=== PATIENT | male | born 1965 | race Caucasian/White ===

== ENCOUNTER 2022-10-01 09:15 | Outpatient (OUT) | payer BC, SELFPAY ==
--- NOTE | 2022-10-01 09:17 | XR_ITS ---
The [place] [id number] Patient Name: RITU BAKER MRN: [id number] date: 1965 Sex: M Assigned Patient Location: [facility] Current Patient Location: [facility] Accession/Order Number: [id number] Exam Date: 10/01/2022 09:20 Report Date: 10/01/2022 10:02 At the request of: JOSE LUIS HUYNH Procedure: XR ankle RT min 3V PROCEDURE: XR ankle RT min 3V HISTORY: RIGHT ANKLE PAIN COMPARISON: XR ankle right 09/05/2022 FINDINGS: BONES:Mechanical fusion of the ankle joint, posterior talocalcaneal joint, and dorsal midfoot. No appreciable hardware fracture or loosening. No bone fracture or dislocation. Prior resection of distal fibula. SOFT TISSUES:Moderate soft tissue swelling surrounding the ankle. EFFUSION:None visible. OTHER: Negative. IMPRESSION: 1. Stable surgical changes without evidence of hardware failure or change in alignment. Electronically authenticated by: LORETO MARTINS Date: 10/01/2022 10:02
== END 2022-10-01 09:16 ==
LOC: RAD 09:15
PROVIDERS: PCP Student in an Organized Health Care Education/Training Program; Visit Provider Student in an Organized Health Care Education/Training Program
DX: M25.571 Pain in right ankle and joints of right foot (principal)
CPT/HCPCS: 73610

== ENCOUNTER 2022-10-30 10:16 | Outpatient (OUT) | payer BC, SELFPAY ==
--- NOTE | 2022-10-30 10:17 | XR_ITS ---
[address] [address] Patient Name: RITU BAKER MRN: [id number] date: 1965 Sex: M Assigned Patient Location: [facility] Current Patient Location: [facility] Accession/Order Number: [id number] Exam Date: 10/30/2022 10:20 Report Date: 10/30/2022 11:57 At the request of: ANDI BELLE Procedure: XR ankle RT min 3V PROCEDURE: XR ankle RT min 3V COMPARISON: 10/01/2022 HISTORY: RIGHT ANKLE PAIN FINDINGS: BONES:Stable ankle fusion. Screw through the posterior talocalcaneal joint. Plate and screws through the dorsal midfoot hindfoot. Multiple screws through the tibiotalar joint. Lateral plate across the tibia and hindfoot. Remote resection of the fibula SOFT TISSUES:Moderate diffuse soft tissue swelling EFFUSION:Joint effusion OTHER: Negative. XR/XR ankle RT min 3V IMPRESSION: Stable postsurgical changes with no acute fracture or mechanical failure Electronically authenticated by: ADARSH MCGEE Date: 10/30/2022 11:57
== END 2022-10-30 10:17 | disposition home or self-care (01) ==
LOC: RAD 10:16
PROVIDERS: PCP Internal Medicine; Visit Provider Podiatrist Foot & Ankle Surgery
DX: M19.071 Primary osteoarthritis, right ankle and foot (principal)
CPT/HCPCS: 73610

== ENCOUNTER 2022-11-04 10:43 | Outpatient (RCR) | payer BC, SELFPAY | END 2022-11-15 11:39 | disposition home or self-care (01) | LOC: PT 10:43 | PROVIDERS: PCP Internal Medicine; Visit Provider Podiatrist Foot & Ankle Surgery | DX: M25.571 Pain in right ankle and joints of right foot (principal); M79.671 Pain in right foot | CPT/HCPCS: 97113; 97161 ==

== ENCOUNTER 2022-11-06 07:52 | Outpatient (OUT) | payer BC, SELFPAY ==
--- NOTE | 2022-11-06 07:56 | CT_ITS ---
[address] [address] Patient Name: RITU BAKER MRN: [id number] date: 1965 Sex: M Assigned Patient Location: CT Current Patient Location: CT Accession/Order Number: [id number] Exam Date: 11/06/2022 08:03 Report Date: 11/06/2022 08:36 At the request of: ANDI BELLE Procedure: CT ankle RT wo con EXAMINATION: CT ankle RT wo con HISTORY: Primary Osteoarthritis COMPARISON: 10/30/2022 TECHNIQUE: Multi-planar CT images were created without IV contrast. Dose reduction techniques were achieved by using automated exposure control and/or adjustment of mA and/or kV according to patient size and/or use of iterative reconstruction technique. FINDINGS: BONES: No acute fracture or dislocation. Marked degenerative change with fusion and bony remodeling. Remote distal fibular resection Midfoot hindfoot fusion utilizing a lateral plate and screws extending from the tibia to the talus. Tibiotalar and subtalar fusion with multiple screws. Midfoot hindfoot fusion with a dorsal plate and screws. No definite mechanical failure is observed. Metallic wire extends from the anterior tibiotalar joint SOFT TISSUES: Diffuse subcutaneous edema and skin thickening EFFUSION: Ankle joint effusion OTHER: Negative. CT/CT ankle RT wo con IMPRESSION: Ankle fusion with extensive soft tissue swelling and joint effusion Electronically authenticated by: ADARSH MCGEE Date: 11/06/2022 08:36
== END 2022-11-06 07:53 | disposition home or self-care (01) ==
LOC: CT 07:52
PROVIDERS: PCP Internal Medicine; Visit Provider Podiatrist Foot & Ankle Surgery
DX: M19.071 Primary osteoarthritis, right ankle and foot (principal); Z98.1 Arthrodesis status; M79.89 Other specified soft tissue disorders; M25.471 Effusion, right ankle
CPT/HCPCS: 73700

== ENCOUNTER 2022-12-13 06:37 | Outpatient (OUT) | payer BC, SELFPAY ==
[2022-12-13 08:16] LABS: Thyroid Stimulating Hormone 6.961 uIU/mL (0.358-3.740)
== END 2022-12-13 06:38 | disposition home or self-care (01) ==
LOC: LAB 06:39
PROVIDERS: PCP Internal Medicine; Visit Provider Internal Medicine
DX: E04.1 Nontoxic single thyroid nodule (principal)
CPT/HCPCS: 36415; 84443

== ENCOUNTER 2022-12-18 09:21 | Outpatient (OUT) | payer BC, SELFPAY ==
--- NOTE | 2022-12-18 | XR_ITS ---
The [address] [address] Patient Name: RITU BAKER MRN: [id number] date: 1965 Sex: M Assigned Patient Location: [facility] Current Patient Location: [facility] Accession/Order Number: [id number] Exam Date: 12/18/2022 09:30 Report Date: 12/18/2022 10:06 At the request of: ANDI BELLE Procedure: XR ankle RT min 3V PROCEDURE: XR ankle RT min 3V DATE: 12/18/2022 8:30 AM CDT COMPARISONS: None CLINICAL INDICATION: IMAGING IN PODIATRY FINDINGS: There is again evidence of resection of the distal fibula. There is again multiple screws and fixation plates across the tibiotalar joint space, across the subtalar joint space and of the dorsal midfoot. All hardware appears to be intact and stable in position when compared to previous exam.. There is again diffuse bone demineralization. Soft tissue swelling is noted about the ankle. XR/XR ankle RT min 3V IMPRESSION: Extensive postop changes of the ankle, the midfoot and the hindfoot, stable in appearance from previous exam. Electronically authenticated by: CANELO FRANCO Date: 12/18/2022 10:06
== END 2022-12-18 09:22 | disposition home or self-care (01) ==
LOC: RAD 09:21
PROVIDERS: PCP Internal Medicine; Visit Provider Podiatrist Foot & Ankle Surgery
DX: M25.571 Pain in right ankle and joints of right foot (principal)
CPT/HCPCS: 73610

== ENCOUNTER 2023-01-17 13:43 | Outpatient (OUT) | payer BC, SELFPAY ==
[2023-01-17 14:23] LABS: Basophils Absolute Auto 0.1 10^3/uL (0.0-0.1); Eosinophils Absolute Auto 0.2 10^3/uL (0.0-0.7); Eosinophils Percent Auto 2.8 % (0.9-7.0); Hematocrit 41.2 % (42.0-54.0); Immature Granulocytes Abs Auto 0.01 10^3/uL (0.00-0.03); Immature Granulocytes Pct Auto 0.2 % (0.0-0.5); Lymphocytes Absolute Auto 1.8 10^3/uL (1.2-3.8); Lymphocytes Percent Auto 29.4 % (20.5-60.0); Mean Corpuscular Hemoglobin 31.1 pg (25.9-34.0); Mean Corpuscular Volume 91.6 fL (80.0-94.0); Mean Platelet Volume 9.6 fL (9.5-13.5); Monocytes Absolute Auto 0.5 10^3/uL (0.3-0.8); Monocytes Percent Auto 8.5 % (1.7-12.0); Neutrophils Absolute Auto 3.5 10^3/uL (1.4-6.5); Neutrophils Percent Auto 58.1 % (43.0-75.0); Platelet Count 226 10^3/uL (150-450); Red Cell Distribution Width 12.7 % (11.0-15.0); White Blood Count 6.1 10^3/uL (4.0-11.0)
[2023-01-17 14:36] LABS: Alanine Aminotransferase 67 U/L (16-63); Albumin Globulin Ratio 0.9; Albumin Level 3.9 g/dL (3.4-5.0); Alkaline Phosphatase 108 U/L (46-116); Anion Gap 12.4; Aspartate Amino Transferase 33 U/L (15-37); BUN Creatinine Ratio 14.1; Bilirubin Total 0.5 mg/dL (0.2-1.0); Calcium 9.4 mg/dL (8.5-10.1); Carbon Dioxide 30.5 mmol/L (21.0-32.0); Chloride 100 mmol/L (98-107); Estimated GFR (African America >60 (>=60); Estimated GFR (Non-African Ame >60 (>=60); Globulin 4.4 g/dL; Glucose 80 mg/dL (74-106); Potassium 3.9 mmol/L (3.5-5.1); Sodium 139 mmol/L (136-145); Total Protein 8.3 g/dL (6.4-8.2)
[2023-01-17 14:38] LABS: C Reactive Protein <0.2 mg/dL (<=1.0)
[2023-01-18 11:53] LABS: C. Difficile PCR NEGATIVE (NEGATIVE)
[2023-01-20 16:09] LABS: Deamidated Gliadin Abs, IgA 6 units (0-19); Deamidated Gliadin Abs, IgG 2 units (0-19); Endomysial Antibody IgA Negative (Negative); Immunoglobulin A, Qn, Serum 420 mg/dL (90-386); t-Transglutaminase (tTG) IgA <2 U/mL (0-3); t-Transglutaminase (tTG) IgG 4 U/mL (0-5)
[2023-01-20 21:07] LABS: Calprotectin, Fecal 75 ug/g (0-120)
[2023-01-30 14:08] LABS: Ova + Parasite Exam Final report (.)
== END 2023-01-17 13:44 | disposition home or self-care (01) ==
LOC: LAB 13:44
DX: K62.5 Hemorrhage of anus and rectum (principal)
CPT/HCPCS: 36415; 80053; 82784; 83993; 85025; 86140; 86231; 86258; 86364; 87177; 87209; 87493; 87507

== ENCOUNTER 2023-01-28 07:58 | Outpatient (OUT) | payer BC, SELFPAY ==
--- NOTE | 2023-01-28 08:02 | CT_ITS ---
The [place] [id number] Patient Name: RITU BAKER MRN: [id number] date: 1965 Sex: M Assigned Patient Location: CT Current Patient Location: CT Accession/Order Number: [id number] Exam Date: 01/28/2023 08:04 Report Date: 01/28/2023 09:03 At the request of: ANDI BELLE Procedure: CT ankle RT wo con CT ankle RT wo con, 01/28/2023 8:04 AM EDT INDICATION: Ankle Degenerative Disease COMPARISON: Prior CT dated 11/06/2022 and x-ray of the right ankle dated 12/18/2022 TECHNIQUE: axial images of 1 mm are obtained from with coronal and sagittal reconstructions without contrast. 3-D MIP reconstructions are also provided. Dose reduction techniques were achieved by using automated exposure control and/or adjustment of mA and/or kV according to patient size and/or use of iterative reconstruction technique. FINDINGS: There is status post right distal fibular resection and fusion of tibiotalar and subtalar and midtarsal fusion with multiple screws and plate. No hardware fracture or loosening is noted. No acute fracture or dislocation is noted. There is diffuse demineralization of bone. Possible old fracture deformity of the distal fifth metatarsal bone. Diffuse soft tissue swelling is noted. No suspicious osteolytic or osteoblastic lesion is noted. CT/CT ankle RT wo con IMPRESSION: Diffuse demineralization of bone with severe postoperative/degenerative changes of tibiotalar and subtalar and midtarsal bones. Electronically authenticated by: FANNIE LEACH Date: 01/28/2023 09:03
== END 2023-01-28 07:59 | disposition home or self-care (01) ==
LOC: CT 07:58
PROVIDERS: Visit Provider Podiatrist Foot & Ankle Surgery
DX: M19.071 Primary osteoarthritis, right ankle and foot (principal)
CPT/HCPCS: 73700

== ENCOUNTER 2023-02-10 11:16 | Outpatient (OUT) | payer BC, SELFPAY ==
--- NOTE | 2023-02-10 12:59 | P.CN_ITS ---
Consult Note: HPI Data of Consult Patient: new to practice Consult date: 02/10/23 Requesting Physician: Stephanie Olmos MD Primary Care Provider: Non-Staff Physician, Consult Narrative Reason for consult: right foot and ankle pain Narrative: 57yom who presents for evaluation. has had multiple right foot and ankle surgeries in the past. now has persistent pain, swelling, color change, temperature change. engaged in >6 weeks of provider directed home exercises, with minimal relief. tried gabapentin, with limited benefit. cc:: CC: Stephanie Olmos MD Review of Systems ROS0 Status of ROS 10 or more systems reviewed and unremarkable except as noted in history and below Exam Narrative Exam Narrative: Psych-alert and oriented x 3.? Attentive and appropriate, constitutionally normal, displays normal mood and affect per situation.? There are no obvious deficits in memory, reasoning, or intellect. Examination of the right lower extremity reveals notable hyperpathia and allodynia.? Notable atrophy and diffuse weakness present in the extremity.? There is notable shiny skin with hair loss and abnormal hair growth denoting trophic changes presently.? Asymmetric color and temperature changes are present which denotes sudomotor changes.? Decreased range of motion and strength is noted in the extremity.? Coordination remains intact.? Gait remains non-antalgic. Assessment and Plan Assessment and Plan (1) CRPS (complex regional pain syndrome type I): Plan 57yom who presents for evaluation. failed physical and medical modalities, as noted. given surgical history and symptoms, prudent to attempt right lumbar sympathetic nerve block x2 to provide analgesia. he is in agreement. medications reviewed. will trial lyrica 50mg tid, given gabapentin failure. follow up after procedure.
== END 2023-02-10 11:17 | disposition home or self-care (01) ==
PROVIDERS: Visit Provider Anesthesiology
DX: G90.50 Complex regional pain syndrome I, unspecified (principal)
CPT/HCPCS: G0463

== ENCOUNTER 2023-02-17 07:21 | Day surgery (SDC) | payer BC, SELFPAY ==
[2023-02-17 07:40] VITALS: BP 146/84; PULSE 71; RESP 16; TEMP 36.6; O2SAT 95
[2023-02-17] MEDS: 0.9 % SODIUM CHLORIDE 500 ML IV (07:52)
--- NOTE | 2023-02-17 08:45 | W.PM.PROCNOT ---
Date of procedure: 02/17/23 Pre-op diagnosis: CRPS type I, right lower extremity Post-op diagnosis: same as pre-op Procedure: Procedure: Right lumbar sympathetic nerve block Medications: Bupivacaine 0.25% 4cc, normal saline 0.9% 4cc, kenalog 80mg The patient was seen and examined in the preoperative holding area.? Informed consent was obtained and placed on the chart.? Patient was brought to the medical procedure unit and placed in the prone position where a timeout was completed verifying the correct patient, procedure site, position, and planned special equipment using sterile aseptic technique.? Under direct fluoroscopic visualization a 25-gauge Quincke tipped spinal needle was advanced to the right anterolateral aspect of the L3 vertebral body where Omnipaque dye was injected to show adequate spread.? There was no evidence of vascular or neurologic uptake.? The above-mentioned injectate was then placed in five 2 mL aliquots preceded by negative aspiration. The needle was removed and the surgery site was covered. The same procedure, with the same steps, was then completed on the opposite side. Patient was taken to the postprocedural recovery area and monitored for an appropriate length of time before found suitable for discharge in the accompaniment of a responsible adult. Anesthesia: Moderate Sedation Surgeon: Stephanie Olmos Pathology: none sent Condition: stable Disposition: no change
[2023-02-17] MEDS: IOHEXOL 240 MG/ML - 10 ML VIAL 100 MG INJ (08:46)
[2023-02-17] MEDS: LIDOCAINE HCL 2% PF 100 MG/5 ML VIAL INJ (08:47)
[2023-02-17] MEDS: TRIAMCINOLONE ACETONIDE 40 MG/ML VIAL 10 MG INJ (08:47)
[2023-02-17] MEDS: BUPIVACAINE HCL 0.25% PF 25 MG/10 ML VIAL 4 ML INJ (08:47)
[2023-02-17] MEDS: 0.9 % SODIUM CHLORIDE 10 ML SYRINGE - SALINE FLUSH 5 ML INJ (08:47)
[2023-02-17 08:48] VITALS: BP 102/73; PULSE 86; RESP 15; TEMP 36.6; O2SAT 93
[2023-02-17 08:53] VITALS: BP 109/72; PULSE 86; RESP 16; TEMP 36.6; O2SAT 92
== END 2023-02-17 09:13 | disposition home or self-care (01) ==
PROVIDERS: Visit Provider Anesthesiology
DX: G90.521 Complex regional pain syndrome I of right lower limb (principal)
CPT/HCPCS: 64520; 77002; J2704; Q9966

== ENCOUNTER 2023-03-10 06:53 | Day surgery (SDC) | payer OTHER, SELFPAY ==
[2023-03-10 07:11] VITALS: BP 134/83; PULSE 73; RESP 16; TEMP 36.8; O2SAT 97
[2023-03-10] MEDS: 0.9 % SODIUM CHLORIDE 500 ML 50 ML IV (07:26)
--- NOTE | 2023-03-10 08:21 | W.PM.PROCNOT ---
Date of procedure: 03/10/23 Pre-op diagnosis: Complex regional pain syndrome type 1, right lower extremity Procedure: Procedure: Right lumbar sympathetic plexus block Medications: Bupivacaine 0.5% 4cc, normal saline 0.9% 4cc, kenalog 40mg The patient was seen and examined in the preoperative holding area.? Informed consent was obtained and placed on the chart.? Patient was brought to the medical procedure unit and placed in the prone position where a timeout was completed verifying the correct patient, procedure site, position, and planned special equipment using sterile aseptic technique.? Under direct fluoroscopic visualization a 25-gauge Quincke tipped spinal needle was advanced to the right anterolateral aspect of the L3 vertebral body where Omnipaque dye was injected to show adequate spread.? There was no evidence of vascular or neurologic uptake.? The above-mentioned injectate was then placed in five 2 mL aliquots preceded by negative aspiration. The needle was removed and the surgery site was covered. The same procedure, with the same steps, was then completed on the opposite side. Patient was taken to the postprocedural recovery area and monitored for an appropriate length of time before found suitable for discharge in the accompaniment of a responsible adult. Anesthesia: Moderate Sedation Surgeon: Stephanie Olmos Pathology: none sent Condition: stable Disposition: no change
[2023-03-10] MEDS: IOHEXOL 240 MG/ML - 10 ML VIAL 24 MG INJ (08:22)
[2023-03-10] MEDS: BUPIVACAINE HCL 0.25% PF 25 MG/10 ML VIAL 4 ML INJ (08:23)
[2023-03-10] MEDS: LIDOCAINE HCL 2% PF 100 MG/5 ML VIAL 1 ML INJ (08:23)
[2023-03-10 08:24] VITALS: BP 120/78; PULSE 83; RESP 16; TEMP 36.9; O2SAT 96
[2023-03-10] MEDS: TRIAMCINOLONE ACETONIDE 40 MG/ML VIAL INJ (08:24)
[2023-03-10 08:26] VITALS: BP 117/77; PULSE 81; RESP 16; TEMP 36.9; O2SAT 95
[2023-03-10] MEDS: 0.9 % SODIUM CHLORIDE 10 ML SYRINGE - SALINE FLUSH 2.5 ML IV (09:50)
== END 2023-03-10 08:45 | disposition home or self-care (01) ==
PROVIDERS: Visit Provider Anesthesiology
PROC: (CPT 1992; principal; 2023-03-10 07:40)
DX: G90.521 Complex regional pain syndrome I of right lower limb (principal)
CPT/HCPCS: 64520; 77002; J2704; Q9966

== ENCOUNTER 2023-03-26 09:49 | Outpatient (OUT) | payer OTHER, SELFPAY ==
--- NOTE | 2023-03-26 10:35 | P.CN_ITS ---
Consult Note: HPI Data of Consult Patient: new to practice Consult date: 02/10/23 Requesting Physician: Niecy Coe NP Primary Care Provider: Non-Staff Physician, MD Consult Narrative Reason for consult: right foot and ankle pain Narrative: 57yom who presents for evaluation. has had multiple right foot and ankle howard rgeries in the past. now has persistent pain, swelling, color change, temperature change. engaged in >6 weeks of provider directed home exercises, with minimal relief. tried gabapentin, with limited benefit. Pain today 5-6/10 in low back and right ankle. pt has a reported hx of arthritis and degenerative changes in lumbar spine but says his back was not bothering him until the injections. cc:: CC: Niecy Coe NP Review of Systems ROS Status of ROS 10 or more systems reviewed and unremark able except as noted in history and below Musculoskeletal Reports: back pain, extremity pain and joint pain PFSH PFSH Medical History History of acoustic neuroma ?Z86.018 - Personal history of other benign neoplasm (ICD-10) Low back pain ?M54.50 - Low back pain, unspecified (ICD-10) Osteoarthritis ?M19.90 - Unspecified osteoarthritis, unspecified site (ICD-10) Hypertension ?I10 - Essential (primary) hypertension (ICD-10) Surgical History H/O neck surgery ?Z98.890 - Other specified postprocedural states (ICD-10) History of ankle surgery ?Z98.890 - Other specified postprocedural states (ICD-10) Meds Home Medications and Allergies Home Medications Medication Instructions Recorded Confirmed Type amlodipine 10 mg tablet 10 mg PO DAILY 02/10/23 03/10/23 History levothyroxine 112 mcg capsule 112 mcg PO DAILY 02/10/23 03/10/23 History lisinopril 20 mg tablet 20 mg PO DAILY 02/10/23 03/10/23 History omeprazole 40 mg capsule,delayed 40 mg PO DAILY 02/10/23 03/10/23 History release pregabalin 50 mg capsule (Lyrica) 50 mg PO TID 02/10/23 03/10/23 History Allergies Allergy/AdvReac Type Severity Reaction Status Date / Time No Known Drug Allergies Allergy Verified 03/10/23 07:09 Exam Narrative Exam Narrative: Psych-alert and oriented x 3.? Attentive and appropriate, constitutionally normal, displays normal mood and affect per situation.? There are no obvious deficits in memory, reasoning, or intellect. lumbar spine positive facet loading, no redness edema or tenderness to touch, no radiculopathy. BUE/BLE strength 5/5 Examination of the right lower extremity reveals notable hyperpathia and allodynia.? Notable atrophy and diffuse weakness present in the extremity.? There is notable shiny skin with hair loss and abnormal hair growth denoting trophic changes presently.? Asymmetric color and temperature changes are present which denotes sudomotor changes.? Decreased range of motion and strength is noted in the extremity.? Coordination remains intact.? Gait remains non-antalgic. Assessment and Plan Assessment and Plan (1) CRPS (complex regional pain syndrome type I): Qualifiers: Complex regional pain syndrome affected site: lower extremity Laterality: right Qualified Code(s): G90.521 - Complex regional pain syndrome I of right lower limb (2) Low back pain: Qualifiers: Chronicity: chronic Back pain laterality: bilateral Sciatica presence: without sciatica Qualified Code(s): M54.50 - Low back pain, unspecified; G89.29 - Other chronic pain (3) Osteoarthritis: Qualifiers: Osteoarthritis location: unspecified site Osteoarthritis type: unspecified Qualified Code(s): M19.90 - Unspecified osteoarthritis, unspecified site Plan encouraged tylenol and NSAIDS PRN for low back pain continue f/u with podiatry patient reports he is still taking lyrica 50mg TID however last fill was 02/11/23, reports no side effects but no benefit increase lyrica to 100mg TID f/u 6 weeks
== END 2023-03-26 09:50 | disposition home or self-care (01) ==
LOC: PM 09:50
PROVIDERS: Visit Provider Nurse Practitioner
DX: G90.521 Complex regional pain syndrome I of right lower limb (principal); M54.50 Low back pain, unspecified; M19.90 Unspecified osteoarthritis, unspecified site
CPT/HCPCS: G0463

== ENCOUNTER 2023-04-02 14:05 | Outpatient (OUT) | payer OTHER, SELFPAY ==
--- NOTE | 2023-04-02 | XR_ITS ---
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 Right foot radiographs 07/29/2022 CLINICAL INDICATION: RIGHT ANKLE PAIN FINDINGS: There is again evidence of resection of the distal fibula. There are again multiple screws and fixation plates across the tibiotalar joint space, across the subtalar joint space and of the dorsal midfoot. All hardware appears to be intact and stable in position from previous exam. There is again diffuse bone demineralization. There is again moderate first metacarpal phalangeal and first interphalangeal degenerative changes. There is again midfoot degenerative changes. There is again a small spur off the posterior inferior os calcis.. XR/XR foot RT min 3V IMPRESSION: Extensive postop changes are identified of the ankle, the hindfoot and the mid foot. These findings are stable in appearance from previous exam from 12/18/2022. Electronically authenticated by: CANELO FRANCO Date: 04/03/2023 07:17
--- NOTE | 2023-04-02 | XR_ITS ---
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 Right foot radiographs 07/29/2022 CLINICAL INDICATION: RIGHT ANKLE PAIN FINDINGS: There is again evidence of resection of the distal fibula. There are again multiple screws and fixation plates across the tibiotalar joint space, across the subtalar joint space and of the dorsal midfoot. All hardware appears to be intact and stable in position from previous exam. There is again diffuse bone demineralization. There is again moderate first metacarpal phalangeal and first interphalangeal degenerative changes. There is again midfoot degenerative changes. There is again a small spur off the posterior inferior os calcis.. XR/XR ankle RT min 3V IMPRESSION: Extensive postop changes are identified of the ankle, the hindfoot and the mid foot. These findings are stable in appearance from previous exam from 12/18/2022. Electronically authenticated by: CANELO FRANCO Date: 04/03/2023 07:16
== END 2023-04-02 14:06 | disposition home or self-care (01) ==
LOC: RAD 14:05
PROVIDERS: Visit Provider Podiatrist Foot & Ankle Surgery
DX: M25.571 Pain in right ankle and joints of right foot (principal)
CPT/HCPCS: 73610; 73630

== ENCOUNTER 2023-04-03 16:01 | Emergency (ER) | payer OTHER, SELFPAY ==
[2023-04-03 16:07] VITALS: BP 119/80; PULSE 96; RESP 18; TEMP 36.6; O2SAT 100; BMI 30.4
--- NOTE | 2023-04-03 16:11 | PC.NURSE ---
Pain to right foot, area of redness to top of foot, skin pink and warm and pulses present.
--- OUTSIDE RECORDS SUMMARY | 2023-04-03 16:33 | XMS_ITS | CCD ---
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 Unavailable Unavailable TESMOND RICO G Unavailable Unavailable TESMOND, RICO G Unavailable Unavailable TESSHAYLEE RICO G Unavailable Unavailable BEJNANDINI Unavailable Unavailable BEJNANDINI Unavailable Unavailable TESRICO JUNE Unavailable Unavailable TRABOULSSI, MOURHAF Unavailable Unavailable TESSHAYLEE RICO G Unavailable Unavailable Traboulssi, Mourhaf Attending Unavailable Rico Santamaria Primary Care Unavaila ble Seth Turcios Primary Care Provider Seth Turcios Attending Provider [phone] Andi Belle Attending Provider [phone] Moraima Toussaint Attending Provider [phone] NANDINI BILLINGSLEY Admitting Unavailabl e NANDINI BILLINGSLEY Attending Unavailabl e PROVIDER, UNKNOWN Attending Unavailable NANDINI BILLINGSLEY Referring Unavailabl e PROVIDER, UNKNOWN Admitting Unavailable NANDINI BILLINGSLEY Referring Unavailabl e PROVIDER, UNKNOWN Attending Unavailable PROVIDER, UNKNOWN Admitting Unavailable NANDINI BILLINGSLEY Admitting Unavailabl e NANDINI BILLINGSLEY Attending Unavailabl e PROVIDER, UNKNOWN Attending Unavailable PROVIDER, UNKNOWN Admitting Unavailable NANDINI BILLINGSLEY Referring Unavailabl e PROVIDER, UNKNOWN Attending Unavailable PROVIDER, UNKNOWN Admitting Unavailable MORAIMA TOUSSAINT Referring Unavailable PROVIDER, UNKNOWN Attending Unavailable NANDINI BILLINGSLEY Admitting Unavailabl e KARLI JUAREZ Referring Unavailable PROVIDER, UNKNOWN Attending Unavailable PROVIDER, UNKNOWN Admitting Unavailable NANDINI BILLINGSLEY Referring Unavailabl e PROVIDER, UNKNOWN Attending Unavailable PROVIDER, UNKNOWN Admitting Unavailable Adarsh Love Unavailable Mindi TIMBER MANAGEMENT PROFESSOR-SAP DATA ARCHITECT, Brigida Unavailable [phone] Karrie ROBLES, Nandini Rose Unavailable [facility] DATA ARCHITECT, Crystal Unavailable Seth Turcios MD Unavailable Mindi ATWOODN-SAP DATA ARCHITECT, Brigida Unavailable [phone] Karrie ROBLES, Nandini Rose Unavailable Moga TIMBER MANAGEMENT PROFESSOR-SAP DATA ARCHITECT, Crystal Unavailable YOSHI, ANDI Ridley Admitting Unavailable HIGHLANDER, ANDI Ridley Attending Unavailable HILL, DR ANN Primary Care Unavailable WEST, DR ADARSH Wilson Consulting Unavailable HIGHLANDER, ANDI Ridley Consulting Unavailable WEST, DR ADARSH Wilson Consulting Unavailable VERONIKA, EBONI Attending Unavailable VERONIKA, EBONI Admitting Unavailable HILL, DR ANN Primary Care Unavailable VERONIKA, EBONI Consulting Unavailable HIGHLANDER, ANDI Ridley Admitting Unavailable HIGHLANDER, ANDI Ridley Attending Unavailable HILL, DR ANN Primary Care Unavailable HIGHLANDER, ANDI Ridley Consulting Unavailable Adarsh Beverly Consulting Unavailable LAKSHMI, DR LORETO Zheng Consulting Unavailable HILL, DR ANN Primary Care Unavailable VERONIKA, EBONI Attending Unavailable VERONIKA, EBONI Admitting Unavailable VERONIKA, EBONI Consulting Unavailable HIGHLANDER, ANDI Ridley Admitting Unavailable HIGHLANDER, ANDI Ridley Attending Unavailable HILL, DR ANN Primary Care Unavailable LAKSHMI, DR LORETO Zheng Consulting Unavailable HIGHLSTEVE, ANDI Ridley Consulting Unavailable KAMILA ., DR ERIK Sanchez Consulting Unavailable TREVIÑO ., DR ERIK Sanchez Attending Unavailable TREVIÑO ., DR ERIK Sanchez Admitting Unavailable HILL, DR ANN Primary Care Unavailable HIGHLANDER, ANDI Ridley Consulting Unavailable LINO ., JOSE LUIS LYNN Consulting Unavailable SHARP, YANN Consulting Unavailable CARLOS MANUEL II, FERDINAND Consulting Unavailable FEIDER, CANELO Consulting Unavailable HIGHLANDER, ANDI Ridley Consulting Unavailable HILL, DR ANN Primary Care Unavailable HIGHLANDER, ANDI Ridley Attending Unavailable HIGHLANDER, ANDI Ridley Admitting Unavailable HIGHLANDER, ANDI Ridley Admitting Unavailable HIGHLANDER, ANDI Ridley Attending Unavailable HILL, DR ANN Primary Care Unavailable WEST, DR ADARSH Wilson Consulting Unavailable HIGHLANDER, ANDI Ridley Consulting Unavailable LAKSHMI, DR LORETO Zheng Consulting Unavailable HILL, DR ANN Primary Care Unavailable HIGHLANDER, ANDI Ridley Attending Unavailable HIGHLANDER, ANDI Ridley Admitting Unavailable HIGHLANDER, ANDI Ridley Consulting Unavailable HILL, DR ANN Primary Care Unavailable VERONIKA, EBONI Attending Unavailable VERONIKA, EBONI Admitting Unavailable WEST, DR ADARSH Wilson Consulting Unavailable HILL, DR ANN Primary Care Unavailable VERONIKA, EBONI Attending Unavailable VERONIKA, EBONI Admitting Unavailable VERONIKA, EBONI Consulting Unavailable WEST, DR ADARSH Wilson Consulting Unavailable HILL, DR ANN Primary Care Unavailable VERONIKA, EBONI Attending Unavailable VERONIKA, EBONI Admitting Unavailable VERONIKA, EBONI Consulting Unavailable WEST, DR ADARSH Wilson Consulting Unavailable HILL, DR ANN Primary Care Unavailable HILL, DR ANN Attending Unavailable HILL, DR ANN Admitting Unavailable HILL, DR ANN Consulting Unavailable HIGHLANDER, ANDI Ridley Admitting Unavailable HIGHLANDER, ANDI Ridley Attending Unavailable HILL, DR ANN Primary Care Unavailable LAKSHMI, DR LORETO Zheng Consulting Unavailable HIGHLANDER, ANDI Ridley Consulting Unavailable LINO ., JOSE LUIS LYNN Consulting Unavailable RAMBO, JOSE LUIS Consulting Unavailable AILIN, ARCHIE Consulting Unavailable AYYAGARI ., MARBELLA Admitting Unavailable AYYAGARI ., MARBELLA Attending Unavailable HILL, DR ANN Primary Care Unavailable HIGHLANDER, ANDI Ridley Consulting Unavailable HILL, DR ANN Primary Care Unavailable HIGHLANDER, ANDI Ridley Attending Unavailable HIGHLANDER, PETER Khai Admitting Unavailable HIGHLANDER, ANDI Ridley Admitting Unavailable HIGHLANDER, ANDI iRdley Attending Unavailable HILL, DR ANN Primary Care Unavailable HIGHLANDER, ANDI Ridley Consulting Unavailable HIGHLANDER, ANDI Ridley Admitting Unavailable HIGHLANDER, ANDI Ridley Attending Unavailable HILL, DR ANN Primary Care Unavailable HIGHLANDER, ANDI Ridley Consulting Unavailable APARNA HANSEN Unavailable SETH TURCIOS Primary Care Physician [phone] Mary Elizalde Admitting Unavailable Mary Elizalde Attending Unavailable Mary Elizalde Referring Unavailable Mary Elizalde Attending Unavailable Chris Abarca Attending Unavaila SETH Cortes Referring Unavailable Chris Abarca Admitting Unavaila Chris Hooker Attending Unavaila Chris Hooker Referring Unavaila nina Olmos MD, Stephanie Perez Attending Unavailable Amarilis ROBLES, Andolvin Perez Attending Unavailable Amarilis ROBLES, Stephanie Perez Attending Unavailable SHASHI ARENAS Attending Unavailable SETH TURCIOS Referring Unavailable JORGE LUIS, NANDINI J Attending Unavailable Unavailable Unavailable Unavailable Allergies Allergy Classification Reported Allergen(s) Allergy Type Date of Onset Reaction(s) Facility (1 source) No Known Medication Allergies; Translations: [No Known Medication Allergies] Propensity to adverse reactions (disorder) [facility] Rep[facility] Medications Current Medications Medication Drug Class(es) Dates Sig (Normalized) Sig (Original) amLODIPine 10 mg oral tablet (15 sources) Dihydropyridine Calcium Channel Jimbo Start: 12-17-2022 take 10 mg by mouth once daily amlodipine 10 mg, Oral, Daily, Refills(s) 0, High blood pressure Start Date: 01/08/23 Status: Ordered Start: 12-22-2017 End: 05-22-2018 take 1 tablet by mouth once daily Amlodipine (Norvasc) 10 mg Tablet Active 10 MG PO Daily May 22, 2018 8:56am take 1 tablet by kylah th once daily amLODIPine Besylate 5 MG TAKE 1 TABLET BY MOUTH ONCE DAILY Oral for 30 Active Comment on above: Take 10 mg by mouth every morning. apixaban 5 mg oral tablet (10 sources) Factor Xa Inhibitor Start: 05-22-2018 take 1 tablet by mouth once daily Apixaban (Eliquis) 5 mg tablet Active 5 MG PO Daily May 22, 2018 8:57am Start: 01-07-2018 End: 05-22-2018 take 1 tablet by mouth twice daily Apixaban (Eliquis) 5 mg tablet Discontinued 5 MG PO Twice daily 60 January 07, 2018 3:21pm May 22, 2018 8:57am aspirin 81 mg chewable tablet (7 sources) Platelet Aggregation Inhibitor, Nonsteroidal Anti-inflammatory Drug Start: 01-08-2023 aspirin 81 mg Chew Tab 81 mg = 1 tab(s), Chewed, Refills(s) 0, Prophylaxis Start Date: 01/08/23 Status: Ordered Comment on above: Take 81 mg by mouth once daily. gabapentin (2 sources) Anti-epileptic Agent Gabapentin Active Thyroxine (15 sources) l-Thyroxine Start: 01-08-2023 take 112 ug by mouth once daily levothyroxine 112 mcg, Oral, Daily, Refills(s) 0, Thyroid Start Date: 01/08/23 Status: Ordered Start: 11-20-2018 take 1 tablet by kylah th once daily in the morning Synthroid 100 MCG 1 tablet on an empty stomach in the morning Orally Once a day for 30 days Nov, Active Start: 12-22-2017 take 1 tablet by kylah th once daily Levothyroxine (Synthroid) 75 mcg Tablet Active 75 MCG PO Daily December 22, 2017 10:54am Comment on above: Take 75 mcg by mouth daily before breakfast. omeprazole 40 mg delayed release oral capsule (5 sources) Proton Pump Inhibitor Start: 01-22-2023 take 1 capsule by mouth once daily omeprazole 40 mg Cap-DR 40 mg = 1 cap(s), Oral, Daily, # 90 cap(s), Refills(s) 11, Pharmacy: [id number], 174, cm, 01/22/23 12:22:00 EDT, Height/Length Dosing, 95.2, kg, 01/22/23 12:22:00 EDT, Weight Dosing Start Date: 01/22/23 Status: Ordered Comment on above: Take 40 mg by mouth once daily. Completed/Discontinued Medications Medication Drug Class(es) Dates Sig (Normalized) Sig (Original) acetaminophen 325 mg / oxyCODONE hydrochloride 5 mg oral tablet (2 sources) Opioid Agonist oxyCODONE-Acetam christian phen 5-325 MG (Schedule II Drug) TAKE 1 TABLET BY MOUTH EVERY 8 HOURS NEEDED FOR 7 DAYS Oral for 10 Not-Taking amLODIPine 5 mg / atorvastatin 10 mg oral tablet (4 sources) Dihydropyridine Calcium Channel Jimbo, HMG-CoA Reductase Inhibitor take 1 tablet by mouth once daily amLODIPine-Atorvast atin 5-10 mg per tablet Take 1 tablet by mouth once daily. 0 Active Comment on above: Take 1 tablet by kylah th once daily. cyclobenzaprine hydrochloride 10 mg oral tablet (12 sources) Muscle Relaxant Start: 06-19-2018 End: 08-12-2018 take 10 mg by mouth three times daily Cyclobenzaprine Discontinued 10 MG PO Three times daily June 19, 2018 9:52am August 12, 2018 7:31am Start: 12-29-2017 End: 01-07-2018 take 10 mg by mouth three times daily Cyclobenzaprine Discontinued 10 MG PO Three times daily 50 December 29, 2017 2:57pm January 07, 2018 3:42pm Start: 12-22-2017 End: 12-29-2017 take 10 mg by mouth twice daily Cyclobenzaprine Discontinued 10 MG PO Twice daily December 22, 2017 10:54am December 29, 2017 2:57pm esomeprazole 40 mg granules for oral suspension (4 sources) Proton Pump Inhibitor take 40 mg by mouth once daily esomeprazole magnesium (NEXIUM) 40 mg packet Take 40 mg by mouth once daily. 0 Active Comment on above: Take 40 mg by mouth once daily. hydroCHLOROthiazide 25 mg / triamterene 37.5 mg oral capsule (5 sources) Potassium-sparing Diuretic, Thiazide Diuretic Start: 02-08-20 take 1 capsule by mouth once daily in the morning triamterene-hydroCH LOROthiazide (DYAZIDE) 37.5-25 mg per capsule Take 1 capsule by mouth every morning. 0 02/07/2023 Active Start: 01-22-2023 take 1 capsule by mouth once daily hydrochlorothiazide-triamterene 25 mg-37 .5 mg oral capsule 1 cap(s), Oral, Daily, Refill(s) 0, High blood pressure Start Date: 01/22/23 Status: Ordered Comment on above: Take 1 capsule by mo [facility] every morning. levoFLOXacin 500 mg oral tablet (4 sources) Quinolone Antimicrobial Start: 01-08-20 18 End: 01-13-20 18 take 1 tablet by mouth once daily Levofloxacin (Levaquin) 500 mg tablet Discontinued 500 MG PO Daily 5 5 January 07, 2018 3:21pm January 12, 2018 12:01am methocarbamol 750 mg oral tablet (4 sources) Muscle Relaxant Start: 06-20-19 19 End: 08-13-19 19 take 750 mg by mouth four times daily Methocarbamol Discontinued 750 MG PO Four times daily June 19, 2018 9:52am August 12, 2018 7:31am oxyCODONE hydrochloride 5 mg oral tablet (4 sources) Opioid Agonist Start: 12-30-19 18 End: 01-08-20 18 take 1 tablet by mouth every six hours Oxycodone (Roxicodone) 5 mg Tablet Discontinued 1 - 2 TAB PO Q6H 56 December 29, 2017 2:57pm January 07, 2018 3:42pm traMADol hydrochloride 50 mg oral tablet (5 sources) Opioid Agonist Start: 04-09-20 21 traMADol (ULTRAM) 50 mg tablet 1-2 tablets 0 04/09/2021 Active Comment on above: 1-2 tablets Problems Active Problems Problem Classification Problem Date Documented Da te Episodic/Chronic Cancer; other and unspecified primary (2 sources) History of acoustic neuroma; Translations: [Personal history of other benign neoplasm] Episodic Conditions associated with dizziness or vertigo (2 sources) Vertigo; Translations: [Dizziness and giddiness] Episodic Deficiency and other anemia (2 sources) Anemia; Translations: [Anemia, unspecified] 03-12-2023 Episodic Esophageal disorders (8 sources) Gastroesophageal reflux disease; Translations: [Gastro-esophageal reflux disease without esophagitis] Onset: 3 Chronic Essential hypertension (3 sources) Essential hypertension; Translations: [Essential (primary) hypertension] Onset: 3 Chronic Essential hypertension (1 source) Essential hypertension Onset: 8 Headache; including migraine (2 sources) Ophthalmic migraine; Translations: [Migraine with aura, not intractable, without status migrainosus] Chronic Heart valve disorders (4 sources) Nonrheumatic aortic (valve) insufficiency; Translations: [NONRHEUMATIC AORTIC INSUFFICIENCY] Onset: 3 Chronic Hemorrhoids (3 sources) Hemorrhoids; Translations: [Unspecified hemorrhoids] Onset: 3 Episodic Noninfectious gastroenteritis (1 source) Noninfectious enteritis; Translations: [Noninfective gastroenteritis and colitis, unspecified] Onset: 3 Episodic Osteoarthritis (10 sources) Osteoarthritis of foot joint; Translations: [Primary osteoarthritis, right ankle and foot] Onset: 3 Chronic Other acquired deformities (1 source) Contracture, right ankle; Translations: [CONTRACTURE RIGHT ANKLE] Onset: 2 Chronic Other aftercare (2 sources) Long-term current use of anticoagulant; Translations: [intermediate (current) use of anticoagulants] Episodic Other and unspecified benign neoplasm (1 source) Benign neoplasm of cranial nerves; Translations: [Benign neoplasm of cranial nerves] Onset: 8 Chronic Other and unspecified benign neoplasm (5 sources) Polyp of colon; Translations: [Polyp of colon] Onset: 3 Episodic Other circulatory disease (4 sources) H/O: hypertension; Translations: [History of hypertension] Episodic Other circulatory disease (2 sources) History of cerebrovascular accident without residual deficits; Translations: [Personal history of transient ischemic attack (TIA), and cerebral infarction without residual deficits] Episodic Other connective tissue disease (2 sources) Falls; Translations: [Repeated falls] Episodic Other connective tissue disease (2 sources) Neurogenic pain; Translations: [Neuralgia and neuritis, unspecified] Episodic Other connective tissue disease (5 sources) Pain in right foot; Translations: [PAIN IN RIGHT FOOT] Onset: 2 Episodic Other diseases of veins and lymphatics (2 sources) Postthrombotic syndrome; Translations: [Postthrombotic syndrome without complications of unspecified extremity] Chronic Other disorders of stomach and duodenum (3 sources) Intestinal metaplasia of gastric mucosa; Translations: [Gastric intestinal metaplasia, unspecified] Onset: 3 Episodic Other ear and sense organ disorders (1 source) Unspecified hearing loss, unspecified ear; Translations: [Unspecified hearing loss, unspecified ear] Onset: 8 Chronic Other ear and sense organ disorders (2 sources) Bilateral hearing loss; Translations: [Unspecified hearing loss, bilateral] Chronic Other gastrointestinal disorders (1 source) Dysphagia; Translations: [Dysphagia, unspecified] Onset: 3 Episodic Other liver diseases (1 source) Enzyme level - finding; Translations: [Abnormal levels of other serum enzymes] Onset: 3 Episodic Other liver diseases (2 sources) Elevated liver enzymes level 02-03-2023 Episodic Other lower respiratory disease (4 sources) Pleuritic pain; Translations: [Pleurodynia] Episodic Other lower respiratory disease (2 sources) Lung mass; Translations: [Solitary pulmonary nodule] Episodic Other nervous system disorders (2 sources) Polyneuropathy; Translations: [Polyneuropathy, unspecified] Chronic Other nervous system disorders (2 sources) Chronic pain; Translations: [Other chronic pain] Chronic Other nervous system disorders (2 sources) Carpal tunnel syndrome; Translations: [Carpal tunnel syndrome, bilateral upper limbs] Chronic Other nervous system disorders (1 source) Unspecified mononeuropathy of right lower limb; Translations: [UNS MONONEUROPATHY RIGHT LOWER LIMB] Onset: 2 Chronic Other nervous system disorders (2 sources) Impairment of balance; Translations: [Other abnormalities of gait and mobility] Episodic Other non-traumatic joint disorders (5 sources) Pain in right ankle and joints of right foot; Translations: [PAIN IN RIGHT ANKLE] Onset: 2 Episodic Other non-traumatic joint disorders (5 sources) Other specified joint disorders, right ankle and foot; Translations: [OTHER SPEC JOINT D/O RT ANKLE FOOT] Onset: 2 Episodic Other nutritional; endocrine; and metabolic disorders (3 sources) Body mass index 30+ - obesity; Translations: [Body mass index (BMI) 31.0-31.9, adult] Chronic Other nutritional; endocrine; and metabolic disorders (1 source) Body mass index (BMI) 31.0-31.9, adult Onset: 2 Resolved: 2 Chronic Other nutritional; endocrine; and metabolic disorders (1 source) Body mass index (BMI) 32.0-32.9, adult Onset: 2 Resolved: 2 Chronic Other nutritional; endocrine; and metabolic disorders (4 sources) H/O: hypothyroidism; Translations: [History of hypothyroidism] Episodic Phlebitis; thrombophlebitis and thromboembolism (2 sources) History of thromboembolism of vein; Translations: [Personal history of other venous thrombosis and embolism] Episodic Pneumonia (except that caused by tuberculosis or sexually transmitted disease) (4 sources) Pneumonia; Translations: [Pneumonia] Episodic Pulmonary heart disease (2 sources) Pulmonary hypertension; Translations: [Pulmonary hypertension, unspecified] Chronic Pulmonary heart disease (7 sources) Other pulmonary embolism without acute cor pulmonale; Translations: [Pulmonary embolism] Onset: 8 Episodic Residual codes; unclassified (5 sources) Obstructive sleep apnea syndrome; Translations: [Obstructive sleep apnea (adult) (pediatric)] Onset: 1 11-22-2020 Chronic Residual codes; unclassified (2 sources) Hypoxia; Translations: [Idiopathic sleep related nonobstructive alveolar hypoventilation] Chronic Residual codes; unclassified (2 sources) Sleep apnea; Translations: [Sleep apnea, unspecified] Chronic Residual codes; unclassified (2 sources) Obstructive sleep apnea (adult) (pediatric) Onset: 2 Resolved: 2 Chronic Residual codes; unclassified (2 sources) Idiopathic sleep related nonobstructive alveolar hypoventilation Onset: 2 Resolved: 2 Chronic Residual codes; unclassified (4 sources) History of surgical procedure on cervical spine; Translations: [Status post cervical discectomy] Episodic Spondylosis; intervertebral disc disorders; other back problems (17 sources) Other spondylosis with myelopathy, cervical region; Translations: [Lumbar disc prolapse with radiculopathy] Onset: 8 Chronic Spondylosis; intervertebral disc disorders; other back problems (5 sources) Radiculopathy, cervical region; Translations: [Lumbar radiculopathy] Onset: 8 Episodic Thyroid disorders (13 sources) Thyroid nodule; Translations: [Nontoxic single thyroid nodule] Onset: 7 09-13-2020 Chronic Unclassified (1 source) 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) Onset: 8 Unclassified (1 source) Acute embolism and thombos unsp deep vn unsp lower extremity / I82.409(ICD-9) Onset: 8 Unclassified (2 sources) Other pulmonary embolism without acute cor pulmonale / I26.99(ICD-9) Onset: 8 Unclassified (1 source) Shortness of breath / R06.02(ICD-9) Onset: 8 Unclassified (2 sources) Unspecified hearing loss, unspecified ear / H91.90(ICD-9) Onset: 8 Unclassified (1 source) Obesity, unspecified / E66.9(ICD-9) Onset: 8 Unclassified (1 source) Pulmonary fibrosis, unspecified / J84.10(ICD-9) Onset: 8 Unclassified (1 source) CONTACT W/AND (SUSP) EXPOS COVID-19; Translations: [CONTACT W/AND (SUSP) EXPOS COVID-19] Onset: 2 Past or Other Problems Problem Classification Problem Date Documented Date Episodic/Chronic Acquired foot deformities (3 sources) Valgus deformity, not elsewhere classified, right ankle; Translations: [Other acquired deformities of right foot] Onset: 2022 Episodic Complication of device; implant or graft (1 source) Pain due to internal orthopedic prosthetic devices, implants and grafts, initial encounter; Translations: [PAIN INTRL ORTHO PROS DEV GFT INIT] Onset: 2022 Episodic Complications of surgical procedures or medical care (1 source) Pseudarthrosis after fusion or arthrodesis; Translations: [PSEUDARTHROSIS AFTER FUS/ARTHRODSIS] Onset: 2022 Episodic Malaise and fatigue (7 sources) Fatigue; Translations: [Other fatigue] Onset: 12-18-2016 09-13-2020 Episodic Mycoses (1 source) Tinea pedis; Translations: [TINEA PEDIS] Onset: 2022 Episodic Other acquired deformities (1 source) Other specified acquired deformities of musculoskeletal system; Translations: [OTHER SPEC ACQ DEFORMITY MSK SYS] Onset: 2022 Episodic Other aftercare (1 source) 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; Translations: [SNF CURRENT USE OF ASPIRIN] Onset: 2022 Episodic Other bone disease and musculoskeletal deformities (1 source) Other specified disorders of bone density and structure, right ankle and foot; Translations: [OTH D/O BONE DEN STRUCT RT ANK FOOT] Onset: 11-29-2021 Episodic Other connective tissue disease (1 source) Pain in right lower leg; Translations: [PAIN IN RIGHT LOWER LEG] Onset: 2022 Episodic Other connective tissue disease (1 source) Other specified soft tissue disorders; Translations: [OTHER SPEC SOFT TISSUE DISORDERS] Onset: 2022 Episodic Other connective tissue disease (1 source) Posterior tibial tendinitis, right leg; Translations: [POSTERIOR TIBIAL TENDINITIS RT LEG] Onset: 2022 Episodic Other nervous system disorders (1 source) Other abnormalities of gait and mobility; Translations: [OTHER ABNORMALITIES GAIT AND MOBILITY] Onset: 10-02-2021 Episodic Other nervous system disorders (1 source) Unspecified abnormalities of gait and mobility; Translations: [UNS ABNORMALITIES GAIT AND MOBILITY] Onset: 10-02-2021 Episodic Rehabilitation care; fitting of prostheses; and adjustment of devices (2 sources) Encounter for adjustment and management of neurostimulator Onset: 07-10-2021 Resolved: 08-21-2021 Episodic Results Test Name Value Interpretation Reference Range Facility [facility] 03-05-2023 RAY Telephone (GASTMN) RITU REYES ([id number]) 1965 M Date Time Provider Department 03/05/23 SHASHI ARENAS During your visit today, we recorded the following information about you: Do Barraza RN 03/05/2023 3:35 PM Signed Attempted to reach patient to set up appointment with Dr. Arenas for EMR consult. Possible date of 03/12 @ 11:30 am. Left voicemail message for patient to return call to office. HUNG Gilman, RN Tin Recovery Worker [facility] Do Barraza RN 03/05/2023 4:38 PM Signed Patient accepted 03/12/23 appointment at 11:30 am. Directions and instructions given to patient. Patient communicated understanding and agreement with plan. HUNG Gilman, RN Tin Recovery Worker [facility] Allergies As of Date: 03/05/2023 (No Known Allergies) Date Reviewed: 05/29/2022 Reviewed by: Celeste Dunn MA - Fully Assessed Reason for Visit: Appointment [[id number]] Prescriptions as of 03/05/2023 - amLODIPine-Atorvastatin 5-10 mg per tablet Take 1 tablet by mouth once daily. - aspirin 81 mg chewable tablet Take 81 mg by mouth once daily. - esomeprazole magnesium (NEXIUM) 40 mg packet Take 40 mg by mouth once daily. - levothyroxine (SYNTHROID) 75 mcg tablet Take 75 mcg by mouth daily before breakfast. Problem List As Of Date 03/05/2023 Noted Resolved Acquired hypothyroidism [E03.9] 12/18/2016 Fatigue [R53.83] 12/18/2016 Encounter Status:Closed by DO BARRAZA on 03/05/23 Normal [facility] US Liveron 02-05-2023 US Liver Exam Date/Time: 02/04/2023 08:33 EDT Reason for Exam: R74.8;Elevated LFTs Report IMPRESSION: MILD HEPATIC STEATOSIS. OTHERWISE, ESSENTIALLY NEGATIVE LIMITED RUQ ULTRASOUND AFTER PREVIOUS CHOLECYSTECTOMY. EXAM: US Liver DATE: 02/04/2023 CLINICAL HISTORY: Elevated LFTs, R74.8. COMPARISON: None available. TECHNIQUE: Transabdominal ultrasound of the right upper quadrant was performed. FINDINGS: The study is mild to moderately limited by the patient's body habitus. Mildly increased echogenicity within the normal-sized liver is consistent with fatty infiltration. A cyst is noted within the central aspect of the left lobe measuring approximately 1.7 x 1.4 x 1.2 cm. There is no other significant hepatic lesion identified. The gallbladder has been removed. The visualized pancreas, right kidney, and great vessels are unremarkable. There is no significant biliary dilatation or ascites identified. The common duct measures approximately 7 to 8 mm at the jenny hepatis. Ordering Provider: , FINAL REPORT Dictated: 02/05/2023 12:46 pm Darryl Nolan MD Signed (Electronic Signature): 02/05/2023 12:46 pm Signed by: Darryl Nolan MD Transcribed by: WYATT Technologist: [facility] Consent for Procedure/Surger yon 02-04-2023 Consent for Procedure/Surgery [id number]#1.00TIFF [facility] Consent for Treatmenton 01-13 Consent for Treatment [id number]#1.00TIFF [facility] Ambulatory Visit Summaryon 1 Ambulatory Visit Summary RITU REYES :1965 Visit Date:02/03/2023 Ambulatory Visit Instructions Your Diagnosis Colon polyp Hemorrhoids Intestinal metaplasia of stomach Gipson's esophagus Elevated liver enzymes Acid reflux Your Care Team Attending Physician - Fide CASTILLO, Mary A Primary Care Physician - SETH TURCIOS MD This Is Your Medications List Contact prescribing physician if questions or concerns amlodipine aspirin (aspirin 81 mg Chew Tab) hydrochlorothiazide-triamter abi (hydrochlorothiazide-triamte jamil 25 mg-37.5 mg oral capsule) levothyroxine omeprazole (omeprazole 40 mg Cap-DR) Procedures Performed Colonoscopy (01/22/2023), EGD - esophagogastroduodenoscopy (01/22/2023). Discharge Vitals Temperature (Temporal Artery) 36.5 ?C Heart Rate (Peripheral) 59 Blood Pressure 138/82 Height 69 in Height 174 cm Weight 216.92 lb Weight 98.6 kg BMI 32.57 What to do next You Need to Schedule the Following Appointments Follow Up with Mary Elizalde CNP When: Within 3 months Where: You Need to Complete the Following Hepatic Function Panel, Blood, Routine collect, 02/03/23, Order for future visit, Lab Collect, Elevated liver enzymes, Print Label By Order Location US Liver, 02/03/23, Routine, Order for future visit, Transport Mode: Ambulatory, Reason: Elevated LFTs, No, Elevated liver enzymes, pp_set_radiology_subspecialt Nick concepcion - [place] Medications What How Much When Instructions Unchanged amlodipine 10 Milligram By Mouth Every day Contact prescribing physician if questions or concerns Unchanged aspirin (aspirin 81 mg Chew Tab) 1 Tablets Chewed Contact prescribing physician if questions or concerns Unchanged hydrochlorothiazide-triamter abi (hydrochlorothiazide-triamte jamil 25 mg-37.5 mg oral capsule) 1 Capsules By Mouth Every day Contact prescribing physician if questions or concerns Unchanged levothyroxine 112 Microgram By Mouth Every day Contact prescribing physician if questions or concerns Unchanged omeprazole (omeprazole 40 mg Cap-DR) 1 Capsules By Mouth Every day Contact prescribing physician if questions or concerns Allergies No Known Medication Allergies Problems Ongoing - Any problem that you are currently receiving treatment for. Acid reflux Gipson's esophagus Colon polyp Elevated liver enzymes Hemorrhoids Intestinal metaplasia of stomach Education Materials Colon Polyps Colon polyps are tissue growths inside the colon, which is part of the large intestine. They are one of the types of polyps that can grow in the body. A polyp may be a round bump or a mushroom-shaped growth. You could have one polyp or more than one. Most colon polyps are noncancerous (benign). However, some colon polyps can become cancerous over time. Finding and removing the polyps early can help prevent this. What are the causes? The exact cause of colon polyps is not known. What increases the risk? The following factors may make you more likely to develop this condition: ? Having a family history of colorectal cancer or colon polyps. ? Being older than 45 years of age. ? Being younger than 45 years of age and having a significant family history of colorectal cancer or colon polyps or a genetic condition that puts you at higher risk of getting colon polyps. ? Having inflammatory bowel disease, such as ulcerative colitis or Crohn's disease. ? Having certain conditions passed from parent to child (hereditary conditions), such as: ? Familial adenomatous polyposis (FAP). ? Bullard syndrome. ? Turcot syndrome. ? Peutz?Jeghers syndrome. ? MUTYH-associated polyposis (MAP). ? Being overweight. ? Certain lifestyle factors. These include smoking cigarettes, drinking too much alcohol, not getting enough exercise, and eating a diet that is high in fat and red meat and low in fiber. ? Having had childhood cancer that was treated with radiation of the abdomen. What are the signs or symptoms? Many times, there are no symptoms. If you have symptoms, they may include: ? Blood coming from the rectum during a bowel movement. ? Blood in the stool (feces). The blood may be bright red or very dark in color. ? Pain in the abdomen. ? A change in bowel habits, such as constipation or diarrhea. How is this diagnosed? This condition is diagnosed with a colonoscopy. This is a procedure in which a lighted, flexible scope is inserted into the opening between the buttocks (anus) and then passed into the colon to examine the area. Polyps are sometimes found when a colonoscopy is done as part of routine cancer screening tests. How is this treated? This condition is treated by removing any polyps that are found. Most polyps can be removed during a colonoscopy. Those polyps will then be tested for cancer. Additional treatment may be needed depending on the results of testing. Follow these instruction (more content not included)... Normal [facility] Gastroenterology Office/Clin ic Noteon 02-03-2023 Gastroenterology Office/Clinic Note Chief Complaint Results. HPI Staff Patient is a 57 year old male who presents today for a follow up to EGD & Colonoscopy on 01/22/23 w/Dr. Abarca. History of Present Illness Patient is a 57-year-old male who presents for follow-up from EGD/colonoscopy completed 01/22/[address] Abarca. PMH of Hypothyroidism, HTN- managed by patient's PCP. Patient was previously evaluated 01/08/[address] Abarca and note indicated patient was having rectal bleeding. Note indicated likely bile acid diarrhea and was ordered labs and stool testing. Patient was also ordered EGD/colonoscopy. Labs completed 01/17/2023 revealed normal BUN, normal creatinine, slightly elevated ALT, total protein elevated slightly at 8.3. CRP normal, normal H hemoglobin, slightly low hematocrit, celiac serology revealed elevated IgA quantitative. Stool testing 01/16/2023 at outside facility revealed normal fecal Calprotectin. No further stool testing results available to review during today's encounter. EGD completed 01/22/2023 revealed irregular Z-line, suggestive of short segment Gipson's esophagus, esophagus dilated during EGD, small superficial ulcer in antrum, normal duodenum, Gipson's esophagus biopsy revealed Gipson's esophagus, negative for dysplasia, stomach biopsy revealed mild chronic gastritis, intestinal metaplasia present, negative for H. pylori. 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 Arenas at [facility] for possible ESD, normal terminal ileum. During today's visit, patient reports he was previously having occasional acid reflux at night that is now controlled. Is taking omeprazole 40mg daily. Is having 3 BMs daily. Explains having loose BMs for years. Denies use of fiber supplementation. Denies black/bloody stools, nausea/vomiting, fevers/chills, and denies having any other GI complaints. Review of Systems ROS - Provider Constitutional: no fever, no chills. Skin: no Jaundice. ENMT: Denies dysphagia and heartburn. Respiratory: no shortness of breath. Cardiovascular: no chest pain. Gastrointestinal: no nausea, no vomiting, no diarrhea, no GI bleeding. Physical Exam Vitals & Measurements T: 36.5 ?C(Temporal Artery) HR: 59(Peripheral) BP: 138/82 HT: 69 in HT: 174 cm WT: 98.6 kg WT: 216.92 lb BMI: 32.57 General: Well developed, well nourished, in no acute distress Head: Normocephalic/atraumatic Lungs: Normal respiratory effort and clear to auscultation Cardio: Regular rate and rhythm, normal S1 and S2, no murmur, no rub Abdomen: Soft, non-distended, non-tender. Normoactive bowel sounds present in all 4 abdominal quadrants, bilaterally. Mental Status: Alert and oriented x3. Normal mood and affect Assessment/Plan 1. 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 Arenas at [facility] for possible ESD, normal terminal ileum. Educated regarding fiber supplementation daily to see if this also helps with loose stools. 2. 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 Arenas at [facility] for possible ESD, normal terminal ileum. Educated regarding fiber supplementation daily. 3. Intestinal metaplasia of stomach (K31.A0: Gastric intestinal metaplasia, unspecified) EGD completed 01/22/2023 revealed irregular Z-line, suggestive of short segment Gipson's esophagus, esophagus dilated during EGD, small superficial ulcer in antrum, normal duodenum, Gipson's esophagus biopsy revealed Gipson's esophagus, negative for dysplasia, stomach biopsy revealed mild chronic gastritis, intestinal metaplasia present, negative for H. pylori. Continue omeprazole 40mg daily. Ordered repeat EGD with gastric mapping in 2-3 months to further evaluate IM of stomach. Ordered: EGD Endoscopy (Hospital Procedure) 4. Gipson's esophagus (K22.70: Gipson's esophagus without dysplasia) EGD completed 01/22/2023 revealed irregular Z-line, suggestive of short segment Gipson's esophagus, esophagus dilated during EGD, small superficial ulcer in antrum, normal duodenum, Gipson's esophagus biopsy revealed Gipson's esophagus, negative for dysplasia, stomach biopsy revealed mild chronic gastritis, intestinal metaplasia present, negative for H. pylori. Continue omeprazole 40mg daily. Ordered repeat EGD with gastric mapping in 2-3 months to further evaluate IM of stomach. 5. Elevated liver enzymes (R74.8: Abnormal levels of other serum enzymes) Labs completed 01/17/2023 revealed (more content not included)... Normal [facility] Comment on above: Result Comment: Elec tronically Signed By: Fide CASTILLO, Mary Chowdhury\.br\Date and Time Signed: 02/03/23 08:42 EDT Patient Educationon 02-04-20 Patient Education Oncology Colon Polyps Colon polyps are tissue growths inside the colon, which is part of the large intestine. They are one of the types of polyps that can grow in the body. A polyp may be a round bump or a mushroom-shaped growth. You could have one polyp or more than one. Most colon polyps are noncancerous (benign). However, some colon polyps can become cancerous over time. Finding and removing the polyps early can help prevent this. What are the causes? The exact cause of colon polyps is not known. What increases the risk? The following factors may make you more likely to develop this condition: ? Having a family history of colorectal cancer or colon polyps. ? Being older than 45 years of age. ? Being younger than 45 years of age and having a significant family history of colorectal cancer or colon polyps or a genetic condition that puts you at higher risk of getting colon polyps. ? Having inflammatory bowel disease, such as ulcerative colitis or Crohn's disease. ? Having certain conditions passed from parent to child (hereditary conditions), such as: ? Familial adenomatous polyposis (FAP). ? Bullard syndrome. ? Turcot syndrome. ? Peutz?Jeghers syndrome. ? MUTYH-associated polyposis (MAP). ? Being overweight. ? Certain lifestyle factors. These include smoking cigarettes, drinking too much alcohol, not getting enough exercise, and eating a diet that is high in fat and red meat and low in fiber. ? Having had childhood cancer that was treated with radiation of the abdomen. What are the signs or symptoms? Many times, there are no symptoms. If you have symptoms, they may include: ? Blood coming from the rectum during a bowel movement. ? Blood in the stool (feces). The blood may be bright red or very dark in color. ? Pain in the abdomen. ? A change in bowel habits, such as constipation or diarrhea. How is this diagnosed? This condition is diagnosed with a colonoscopy. This is a procedure in which a lighted, flexible scope is inserted into the opening between the buttocks (anus) and then passed into the colon to examine the area. Polyps are sometimes found when a colonoscopy is done as part of routine cancer screening tests. How is this treated? This condition is treated by removing any polyps that are found. Most polyps can be removed during a colonoscopy. Those polyps will then be tested for cancer. Additional treatment may be needed depending on the results of testing. Follow these instructions at home: Eating and drinking ? Eat foods that are high in fiber, such as fruits, vegetables, and whole grains. ? Eat foods that are high in calcium and vitamin D, such as milk, cheese, yogurt, eggs, liver, fish, and broccoli. ? Limit foods that are high in fat, such as fried foods and desserts. ? Limit the amount of red meat, precooked or cured meat, or other processed meat that you eat, such as hot dogs, sausages, mcgregor, or meat loaves. ? Limit sugary drinks. Lifestyle ? Maintain a healthy weight, or lose weight if recommended by your health care provider. ? Exercise every day or as told by your health care provider. ? Do not use any products that contain nicotine or tobacco, such as cigarettes, e-cigarettes, and chewing tobacco. If you need help quitting, ask your health care provider. ? Do not drink alcohol if: ? Your health care provider tells you not to drink. ? You are , may be , or are planning to become . ? If you drink alcohol: ? Limit how much you use to: ? 0?1 drink a day for women. ? 0?2 drinks a day for men. ? Know how much alcohol is in your drink. In the [place] one drink equals one 12 oz bottle of beer (355 mL), one 5 oz glass of wine (148 mL), or one 1? oz glass of hard liquor (44 mL). General instructions ? Take djli-wad-iknulxr and prescription medicines only as told by your health care provider. ? Keep all follow-up visits. This is important. This includes having regularly scheduled colonoscopies. Talk to your health care provider about when you need a colonoscopy. Contact a health care provider if: ? You have new or worsening bleeding during a bowel movement. ? You have new or increased blood in your stool. ? You have a change in bowel habits. ? You lose weight for no known reason. Summary ? Colon polyps are tissue growths inside the colon, which is part of the large intestine. They are one type of polyp that can grow in the body. ? Most colon polyps are noncancerous (benign), but some can become cancerous over time. ? This condition is diagnosed with a colonoscopy. ? This condition is treated by removing any polyps that are found. Most polyps can be removed during a colonoscopy. This information is not intended to replace advice given to you by your health care provider. Make sure you discuss any questions you have with your health care provider. Document Revised: 07/19/2020 D (more content not included)... Normal [facility] IntraOperative Documentson 1 IntraOperative Documents [id number]#1.00TIFF [facility] Postoperative Documentson Postoperative Documents [id number]#1.00TIFF [facility] Physician Referralon 023 Physician Referral [id number]#1.00TIFF [facility] Consenton 01-23-2023 Consent [id number]#1.00TIFF [facility] Discharge Instructionson Discharge Instructions [id number]#1.00TIFF [facility] Main OR Intraoperative Recor don 01-23-2023 Main OR Intraoperative Record IntraOp Document Type FT Summary Primary Physician: Chris Abarca MD Finalized Date/Time: 01/23/23 08:10:13 Pt. Name: RITU REYES/Sex: 1965 Male Med Rec #: [id number] Physician: Chris Abarca MD Financial #: [id number] Pt. Type: O Room/Bed: Endo OP 09/12 Admit/Disch: 01/22/23 11:49:31 - 01/22/23 14:15:00 Institution: Case Times FT Entry 1 Patient Times In Room 01/22/23 12:51:00 Out Room 01/22/23 13:29:00 Procedure Times Start 01/22/23 12:56:00 Stop 01/22/23 13:25:00 Anesthesia Times Start 01/22/23 12:51:00 Stop 01/22/23 13:29:00 Time at [facility] 01/22/23 13:10:00 Last Modified By: Aparna Santo RN 01/22/23 13:29:44 General Comments: 1305-EGD completed/AW RN 1308-Colonoscopy started/AW RN 01/23/23 Chart opened to review and send charges [facility] CSFA Case Attendance FT Entry 1 Entry 2 Entry 3 Case Attendee Alec THOMSON, Collins Pope, Lady Abarca MD, Chris Pennington Role Performed Anesthesiologist Scrub - Primary Surgeon - Primary Dispatcher Radio Time In 01/22/23 12:51:00 01/22/23 12:51:00 01/22/23 12:51:00 Time Out 01/22/23 13:29:00 01/22/23 13:29:00 01/22/23 13:29:00 Procedure EGD AND COLONOSCOPY(.) EGD AND COLONOSCOPY(.) EGD AND COLONOSCOPY(.) Comments Dr. Rossi supervising Last Modified By: Aparna Santo RN, RN, Aparna Vines RN 01/22/23 13:29:45 01/22/23 13:29:45 01/22/23 13:29:45 Entry 4 Case Attendee Aparna Santo RN Role Performed Sled Maker - Primary Time In 01/22/23 12:51:00 Time Out 01/22/23 13:29:00 Procedure EGD AND COLONOSCOPY(.) Comments Last Modified By: Aparna Santo RN 01/22/23 13:29:45 Perioperative Protocols FT Pre-Care Text: Implements protective measures prior to operative or invasive procedure, confirms identity before the operative or invasive procedure, verifies operative procedure, surgical site, and laterality Entry 1 Procedure(s) EGD AND COLONOSCOPY(.) Patient Identity Birthday, ID Band Verified (select at Check, Patient least 2): Participation Consents / H and P Anesthesia Consent, Operative Site N/A Verified HandP, Surgery/Procedure Marking Verified Consent Surgical Site No Laterality Verified n/a Verified Procedure Verified Yes Correct Patient Yes Position Verified Availability Equipment, Medication Prep Dry n/a Verified (If Applicable) PreOp Antibiotic No Time Out Collins Valerio, Given Participants Lady Pope Sarmini MD, Chris Pennington, Aparna Santo RN Time Out Complete 01/22/23 12:53:00 Outcomes Met? Yes Last Modified By: Aparna Santo RN 01/22/23 12:59:40 Post-Care Text: The patient is free from signs and symptoms of injury caused by extraneous objects Allergy Information FT Pre-Care Text: Verifies allergies Entry 1 Allergies Reviewed? Yes Allergies Reviewed Self/Patient With Outcomes Met? Yes Last Modified By: Aparna Santo RN 01/22/23 12:59:48 Post-Care Text: The patient received appropriate medication(s) safely administered during the perioperative period Surgical Procedures FT Entry 1 Procedure Description Procedure EGD AND COLONOSCOPY Modifiers . Surgeon Description EGD with gastric biopsy, empiric esophageal dilation using #60 F dilator, Gipson's esphageal biopsy. COLONOSCOPY with biopsy of transverse colon polyp Primary Procedure Yes Primary Surgeon Tevin ROBLES, Chris Pennington Start 01/22/23 12:56:00 Stop 01/22/23 13:25:00 Anesthesia Type General Surgical Service Gastroenterology Wound Class 2 - Clean-Contaminated Last Modified By: Aparna Santo RN 01/22/23 13:41:25 General Case Data FT Pre-Care Text: Classifies surgical wound, implements aseptic technique, initiates traffic control Entry 1 Case Information OR ENDO 1 FT Case Level Level 2 Wound Class 2 - Clean-Contaminated Specialty Gastroenterology ASA Class 2 Preop Diagnosis RECTAL BLEEDING Postop Same As Preop No Postop Diagnosis EGD- erythema in Outcomes Met? Yes antrum, small superficial ulcer in antrum, mild esophagitis, short segments Gipson's esophagus. Colonoscopy- large external hemorrhoids, transverse colon polyp ( not removed) Last Modified By: Aparna Santo RN 01/22/23 13:23:34 Post-Care Text: The patient is free from signs and symptoms of infection Skin Assessment (Pre Procedure) FT Pre-Care Text: Implements protective measures to prevent skin/ tissue injury due to thermal or mechanical sources Evaluates for signs and symptoms of physical injury to skin and tissue Entry 1 Skin Integrity Intact, [place], Warm, and Skin Abnormality No Dry Outcomes Met? Yes Last Modified By: Aparna Santo RN 01/22/23 13:11:04 Post-Care Text: The patient is free from signs and symptoms of injury caused by extraneous objects Patient Positioning FT Pre-Care Text: Identifies physical alterations that require additional precautions for pro (more content not included)... [facility] Consent for Treatmenton 01-12 Consent for Treatment [id number]#1.00TIFF [facility] Discharge Instructionson Discharge Instructions RITU REYES :1965 Visit Date:01/22/2023 Inpatient Discharge Instructions Your Care Team Admitting Physician - Chris Abarca MD Referring Physician - Chris Abarca MD Reason for Your Visit RECTAL BLEEDING Your Diagnosis Chronic diarrhea Dysphagia Tests Performed Pathology Tissue Exam -- Results Pending -- Please visit your patient portal for your results or contact your primary care physician. This Is Your Medications List amlodipine aspirin (aspirin 81 mg Chew Tab) hydrochlorothiazide-triamter abi (hydrochlorothiazide-triamte jamil 25 mg-37.5 mg oral capsule) levothyroxine omeprazole (omeprazole 40 mg Cap-DR) Discharge Vitals Temperature (Temporal Artery) 36.8 ?C Heart Rate (Monitored) 57 Respiratory Rate 13 Blood Pressure 110/83 Height 174 cm Weight 95.2 kg BMI 31.44 What to do next Instructions From Your Doctor Event Name Event Result Discharge Activity Resume normal activities in 24 hours Discharge Restrictions No driving for 24 hrs Discharge Diet(s) Regular Call Your Doctor For Persistent or heavy bleeding Pharmacy Information [facility] Discharge Instructions Discharge Instructions Previously Scheduled Follow-Up Appointments Friday 8:45 AM EDT With: Chris Abarca MD Where: [facility] Comment on above: Result Comment: Elec tronically Signed By: Ivelisse ISABEL, Charley\.sandrine\Date and Time Signed: 01/22/23 14:07 EDT Discharge Instructions RITU REYES :1965 Visit Date:01/22/2023 Inpatient Discharge Instructions Your Care Team Admitting Physician - Chris Abarca MD Referring Physician - Chris Abarca MD Reason for Your Visit RECTAL BLEEDING Your Diagnosis Chronic diarrhea Dysphagia Tests Performed Pathology Tissue Exam -- Results Pending -- Please visit your patient portal for your results or contact your primary care physician. This Is Your Medications List amlodipine aspirin (aspirin 81 mg Chew Tab) hydrochlorothiazide-triamter abi (hydrochlorothiazide-triamte jamil 25 mg-37.5 mg oral capsule) levothyroxine omeprazole (omeprazole 40 mg Cap-DR) Discharge Vitals Temperature (Temporal Artery) 36.8 ?C Heart Rate (Monitored) 57 Respiratory Rate 13 Blood Pressure 110/83 Height 174 cm Weight 95.2 kg BMI 31.44 What to do next Instructions From Your Doctor Event Name Event Result Discharge Activity Resume normal activities in 24 hours Discharge Restrictions No driving for 24 hrs Discharge Diet(s) Regular Call Your Doctor For Persistent or heavy bleeding Pharmacy Information [facility] [place] Discharge Instructions Discharge Instructions Previously Scheduled Follow-Up Appointments Friday 8:45 AM EDT With: Chris Abarca MD Where: [facility] Comment on above: Result Comment: Elec tronically Signed By: Ivelisse ISABEL, Charley\.br\Date and Time Signed: 01/22/23 13:56 EDT Endoscopic Procedure Report - Otheron 01-22-2023 Endoscopic Procedure Report - Other Patient: RITU REYES Age: 57 years Sex: Male : 1965 Associated Diagnoses: None Author: Chris Abarca MD Pre-Procedure Procedure Date 01/22/2023 13:27:00 . Procedure Type: Colonoscopy. Procedure provider Performed by Chris Abarca MD. Current history and physical Documented on chart. Colorectal neoplasm risk assessment Average risk. Informed Consent After discussing the rationale, risks and benefits, and alternatives to this procedure, the patient provided signed consent for the procedure. Pre-procedure diagnosis: Rectal bleeding. Medications Anticoagulant/antiplatelet None. ASA Classification: Class II. . Monitoring: See anesthesia record. . Procedure The procedure was performed in the hospital. See anesthesia record for sedation given during procedure. The patient was positioned starting in the left lateral decubitus position. Endoscope type used was an adult-size. The endoscope was lubricated then introduced through the anus. The scope was advanced to the terminal ileum. No difficulties encountered during the procedure. The bowel preparation quality was good and was adequate (see polyps greater than or equal to 6 millimeters). The patient tolerated the procedure well. Last colonoscopy: Extent reached: 2min Time of withdrawal: 15 min Findings 1. Large external/internal hemorrhoids, likely the source of bleeding is from the internal hemorrhoids. 2. 3 cm sessile polyp in the transverse colon, could not raise therefore did not attempt to resect it and would favor to send it to advanced endoscopy for possible ESD. Superficial biopsy was taken 3. Normal terminal ileum Images Procedure images: Rec1_hd_video_2022__T1_ 30_[id number].jpg Rec1_hd_video_2022___ [id number].jpg Rec1_hd_video_2022__T1_ 25_01_254.jpg Rec1_hd_video_2022___ 18_08_261.jpg Rec1_hd_video_2022___ 18_50_[id number].jpg Rec1_hd_video_2022___ 17_07_[id number].jpg Rec1_hd_video_3__T12_ 17_18_221.jpg . Post-Procedure Complications: none. Estimated blood loss: none. Specimens: sent to pathology. Devices/ implants: none left in place. Impression and Plan 1. Large external/internal hemorrhoids, likely the source of bleeding is from the internal hemorrhoids. 2. 3 cm sessile polyp in the transverse colon, could not raise therefore did not attempt to resect it and would favor to send it to advanced endoscopy for possible ESD. Superficial biopsy was taken 3. Normal terminal ileum Recommendations: Repeat colonoscopy:: Refer to advanced endoscopy for EMR or ESD . Follow-up:: in clinic as scheduled. Diet:: Previous. Medication resumption:: Continue current medications, Avoid NSAIDs. Return to activities:: After 24 hours. Education and Follow-up: Counseled: Patient, Family. [facility] Comment on above: Result Comment: Elec tronically Signed By: Chris Abarca MD\.br\Date and Time Signed: 01/22/23 13:30 EDT Other Comment: Marycarmen castro Attachment - attachment storage system not supported [id number] Can be viewed in source systemMissing Attachment - attachment storage system not supported [id number] Can be viewed in source systemMissing Attachment - attachment storage system not supported [id number] Can be viewed in source systemMissing Attachment - attachment storage system not supported [id number] Can be viewed in source systemMissing Attachment - attachment storage system not supported [id number] Can be viewed in source systemMissing Attachment - attachment storage system not supported [id number] Can be viewed in source systemMissing Attachment - attachment storage system not supported [id number] Can be viewed in source system Endoscopic Procedure Report - Other Patient: RITU REYES Age: 57 years Sex: Male : 1965 Associated Diagnoses: None Author: Chris Abarca MD Pre-Procedure Procedure Date 01/22/2023 13:05:00 . Procedure Type: Esophagogastroduodenoscopy with biopsy, Parson dilation. Procedure provider Performed by Chris Abarca MD. Current history and physical Documented on chart. Informed Consent After discussing the rationale, risks and benefits, and alternatives to this procedure, the patient provided signed consent for the procedure. Pre-procedure diagnosis: Dysphagia. Medications Anticoagulant/antiplatelet None. ASA Classification: Class II. . Monitoring: See anesthesia record. . Procedure The procedure was performed in the hospital. See anesthesia record for sedation given during procedure. The patient was positioned starting in the left lateral decubitus position and with safety measures. Endoscope type used was an adult-size, introduced orally, advanced to the 3rd portion of the duodenum. No difficulty was encountered during the procedure. Views were excellent. The patient tolerated the procedure well. Findings 1. 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 No stricture was noted, empiric dilation with Parson 60 Nauruan was done, exam afterwards did not show any evidence of mucosal disruption 2. Small superficial ulcer in the antrum with patchy erythema, mild, random biopsies were taken to rule out H. pylori 3. Normal duodenum Images Procedure images: Rec1_hd_video_2022__T12_ 08_06_220.jpg Rec1_hd_video_2022__T12_ 05_30_944.jpg Rec1_hd_video_2022__T12_ 03_37_374.jpg Rec1_hd_video_2022__T12_ _56_073.jpg Rec1_hd_video_3__T12_ 02_43_574.jpg Rec1_hd_video_2022__T12_ _35_325.jpg Rec1_hd_video_3__T12_ 02_14_886.jpg Rec1_hd_video_3__T12_ 02_30_060.jpg . Post-Procedure Complications: none. Estimated blood loss: minimal. Specimens: sent to pathology. Devices/ implants: none left in place. Impression and Plan 1. 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 No stricture was noted, empiric dilation with Parson 60 Nauruan was done, exam afterwards did not show any evidence of mucosal disruption 2. Small superficial ulcer in the antrum with patchy erythema, mild, random biopsies were taken to rule out H. pylori 3. Normal duodenum Recommendations: -Resume previous diet -Resume home medications -Await pathology results, follow in GI clinic in 1-2 after discharge for -Omeprazole 40mg daily or equivalent medication [facility] Comment on above: Result Comment: Elec tronically Signed By: Tevin ROBLES, Chris Pennington\.br\Date and Time Signed: 01/22/23 13:07 EDT Other Comment: Marycarmen castro Attachment - attachment storage system not supported [id number] Can be viewed in source systemMissing Attachment - attachment storage system not supported [id number] Can be viewed in source systemMissing Attachment - attachment storage system not supported [id number] Can be viewed in [facility] Attachment - attachment storage system not supported [id number] Can be viewed in source [facility]Miss[facility] Attachment - attachment storage system not supported [id number] Can be viewed in source [facility]Miss[facility] Attachment - attachment storage system not supported [id number] Can be viewed in [facility]Miss[facility] Attachment - attachment storage system not supported [id number] Can be viewed in [facility] Attachment - attachment storage system not supported [id number] Can be viewed in source system Inpatient Patient Summaryon 01-22-2023 Inpatient Patient Summary [place] [id number] [facility] Clinical Discharge Instructions PERSON INFORMATION Name: RITU REYES PHYSICIANS Admitting Physician: Chris Abarca MD Attending Physician: Chris Abarca MD PCP: ASA ROBLES, SETH Rodriguez Discharge Diagnosis: Chronic diarrhea; Dysphagia Comment: PATIENT EDUCATION INFORMATION Instructions: Medication Leaflets: Follow up: Type Location Start [facility] Follow Up [facility] 01/27/2023 8:45 AM 01/27/2023 9:00 AM Confirmed MEDICATION LIST New Medications [facility] [id number], [address] [id number], [phone] omeprazole (omeprazole 40 mg Cap-DR) 1 Capsules By Mouth every day. Refills: 11. Medications to Continue Taking That Have Changed Other Medications START: amlodipine 10 Milligram By Mouth every day. START: aspirin (aspirin 81 mg Chew Tab) 1 Tablets Chewed. START: hydrochlorothiazide-triamter abi (hydrochlorothiazide-triamte jamil 25 mg-37.5 mg oral capsule) 1 Capsules By Mouth every day. START: levothyroxine 112 Microgram By Mouth every day. Comment: Kathy Nick [facility] Main OR PACU I Recordon 01-12 Main OR PACU I Record PACU Phase I Document Type FT Summary Primary Physician: Chris Abarca MD Finalized Date/Time: 01/22/23 15:46:22 Pt. Name: REYESRITU/Sex: 1965 Male Med Rec #: [id number] Physician: Chris Abarca MD Financial #: [id number] Pt. Type: O Room/Bed: Endo OP 09/12 Admit/Disch: 01/22/23 11:49:31 - Institution: Case Times PACU I FT Pre-Care Text: Identifies barriers to communication and implements measures to provide psychological support Develops individualized plan of care, and ensures continuity of care Maintains patient's dignity and privacy, and maintains patient confidentiality Identifies and reports philosophical, cultural, and spiritual beliefs and values Identifies individual values and wishes concerning care Implements aseptic technique, and administers prescribed antibiotic therapy and immunizing agents as ordered Evaluates postoperative tissue perfusion Implements thermoregulation measures, and monitors body temperature Evaluates postoperative respiratory status Evaluates postoperative cardiac status Evaluates postoperative neurological status Assesses pain control, collaborated in initiating patient-controlled analgesia and implements alternative methods of pain control Verifies allergies, administers prescribed medications and solutions, evaluates response to medications Entry 1 In PACU I 01/22/23 13:30:00 Discharge from PACU 01/22/23 14:15:00 I Outcomes Met? Yes Last Modified By: Charley Oviedo RN 01/22/23 15:46:09 Post-Care Text: The patient demonstrates knowledge of the expected response to the operative or invasive procedure The patient's care is consistent with the individualized perioperative plan of care The patient's right to privacy is maintained The patient's value system, lifestyle, ethnicity, and culture are considered, respected, and incorporated into the perioperative plan of care The patient participates in decisions affecting his or her perioperative plan of care The patient is free from signs and symptoms of infection The patient has wound/tissue perfusion consistent with or improved from baseline levels established preoperatively The patient is at or returning to normothermia at the conclusion of the immediate postoperative period The patient's respiratory function is consistent with or improved from baseline levels established preoperatively The patient's cardiovascular status is consistent with or improved from baseline levels established preoperatively The patient's cardiovascular status is consistent with or improved from baseline levels established preoperatively The patient demonstrates and/or reports adequate pain control throughout the perioperative period The patient received appropriate medication(s), safely administered during the perioperative period Acuity Level PACU I FT Entry 1 Start Time 01/22/23 13:30:00 Stop Time 01/22/23 14:15:00 Acuity Level Acuity Level I Last Modified By: Charley Oviedo RN 01/22/23 15:46:21 Finalized By: Charley Oviedo RN Document Signatures Signed By: Charley Oviedo RN 01/22/23 15:46 [facility] Main OR Preoperative Recordo n 01-22-2023 Main OR Preoperative Record Holding Area Document Type FT Summary Primary Physician: Chris Abarca MD Finalized Date/Time: 01/22/23 12:29:28 Pt. Name: RITU REYES/Sex: 1965 Male Med Rec #: [id number] Physician: Chris Abarca MD Financial #: [id number] Pt. Type: O Room/Bed: Endo OP 09/12 Admit/Disch: 01/22/23 11:49:31 - Institution: Case Times Holding FT Pre-Care Text: Verifies consent for planned procedure, identifies individual values and wishes concerning care, includes family members in perioperative teaching Secures patient's records' belongings, and valuables, maintains patient's dignity and privacy, and maintains patient confidentiality Entry 1 In Holding 01/22/23 12:10:00 Outcomes Met? Yes Last Modified By: Marek Montanez RN 01/22/23 12:17:11 Post-Care Text: The patient participates in decisions affecting his or her perioperative plan of care The patient's right to privacy is maintained Surgery Checklist FT Entry 1 Patient Birthday, ID Band Procedure History and Physical, Identification: Check, Patient Verification: Surgical Consent, With Participation Patient NPO after Midnight: No Date/Time: 01/22/23 07:45:00 Results Reviewed allen liquid bowel results Personal Items: Glasses Comments: Personal Items glasses, inspire sleep Limitations: none Comment: apnea monitor, metal in right ankle, metal plates in neck Complaints of Pain: No Pain Comment: pt denies pain at this time Operative Site n/a Marked By: n/a Marking: Location: n/a Availability Equipment Verified: Does Patient Smoke No Patient states Yes Comment - Adult Daniela- friend postop adult Supervision supervision available Case Cancelled in No Holding Area see comments below for reason Last Modified By: Marek Montanez RN 01/22/23 12:29:26 General Comments: pt finished bowel prep at 0745, per patient nothing to eat or drink since MSRN Finalized By: Marek Montanez RN Document Signatures Signed By: Marek Montanez RN 01/22/23 12:19 Marek Montanez RN 01/22/23 12:29 Normal [facility] Monitor Recordon 01-22-2023 Monitor Record [id number] Normal [facility] Monitor Record [id number] Normal [facility] Outpatient Surgery Discharge Instructionon 01-22-2023 Outpatient Surgery Discharge Instruction [place] [id number] Patient Discharge Instructions PERSON INFORMATION Name: RITU REYES Date of : 1965 Current Date: 01/22/2023 13:34:19 PHYSICIANS Admitting Physician: Chris Abarca MD Discharge Diagnosis: Chronic diarrhea; Dysphagia RITU REYES has been given the following list of follow-up instructions, prescriptions, and patient education materials: PATIENT FOLLOW-UP INFORMATION Diet: Regular Discharge Activity: Resume normal activities in 24 hours Discharge Restrictions: No driving for 24 hrs Call Your Doctor For: Persistent or heavy bleeding IF UNABLE TO CONTACT YOUR PHYSICIAN AND YOU FEEL IT IS AN EMERGENCY, GO TO THE NEAREST EMERGENCY ROOM OR CALL 911 I, RITU REYES, have received the attached patient education materials/instructions and have verbalized understanding: May we do a follow up call? Yes No I was present when discharge instructions were given __ Patient Signature Date Clinican/Nurse Signature Date Follow up: Type Location Start [facility] Follow Up [facility] 01/27/2023 8:45 AM 01/27/2023 9:00 AM Confirmed Pharmacy Information: [facility] You may receive a survey from [employer] asking you to rate your care experience. Your feedback is important and will help us understand what we do well and how we can improve the quality of care we provide to you, your loved ones and our community. It?s an honor to serve you. Thank you for choosing [facility] HERE ARE THE MEDICATION CHANGES THAT OCCURRED DURING YOUR HOSPITAL STAY New Medications [facility] [id number] [facility] [address] [place], [place] [id number], [phone] omeprazole (omeprazole 40 mg Cap-DR) 1 Capsules By Mouth every day. Refills: 11. Medications to Continue Taking That Have Changed Other Medications START: amlodipine 10 Milligram By Mouth every day. START: aspirin (aspirin 81 mg Chew Tab) 1 Tablets Chewed. START: hydrochlorothiazide-triamter abi (hydrochlorothiazide-triamte jamil 25 mg-37.5 mg oral capsule) 1 Capsules By Mouth every day. START: levothyroxine 112 Microgram By Mouth every day. PATIENT EDUCATION INFORMATION Instructions: Medication Leaflets: [facility] Patient Education - Texton 1 Patient Education - Text Colonoscopy Care After Surgery Please read the instructions outlined below and refer to this sheet in the next few weeks. These discharge instructions provide you with general information on caring for yourself after you leave the hospital. Your doctor may also give you specific instructions. While your treatment has been planned according to the most current medical practices available, unavoidable complications occasionally occur. If you have any problems or questions after discharge, please call your doctor. ACTIVITY You may resume your regular activity, but move at a slower pace for the next 24 hours. Take frequent rest periods for the next 24 hours. Walking will help get rid of the air and reduce the bloated feeling in your abdomen (belly). No driving for 24 hours (because of the anesthesia (medicine) used during the test). You may shower. Do not sign any important legal documents or operate any machinery for 24 hours (because of the anesthesia used during the test). NUTRITION Drink plenty of fluids. You may resume your normal diet as instructed by your doctor. Begin with a light meal and progress to your normal diet. Heavy or fried foods are harder to digest and may make you feel nauseated (sick to your stomach). Avoid alcoholic beverages for 24 hours or as instructed. MEDICATIONS You may resume your normal medications unless your doctor tells you otherwise. WHAT YOU CAN EXPECT TODAY Some feelings of bloating in the abdomen. Passage of more gas than usual. Spotting of blood in your stool or on the toilet paper. FOLLOW-UP Your doctor will discuss the results of your test with you. SEEK IMMEDIATE MEDICAL ATTENTION IF: There is more than a spotting of blood in your stool. There is abdominal distention (your abdomen is swollen). There is vomiting. You have a temperature over 101.5 F. There is abdominal pain or discomfort that is severe or gets worse throughout the day. [facility] Progress Note-Physicianon 10 -11-2023 Progress Note-Physician Patient: RITU REYES Age: 57 years Sex: Male : 1965 Associated Diagnoses: None Author: Jose Rossi DO Postoperative Information Postoperative disposition: Postoperative disposition: To PACU. Anesthetic utilized: General. Health Status Allergies: Allergic Reactions (Selected) No Known Medication Allergies Current medications: (Selected) Inpatient Medications Ordered Sodium Chloride 0.9% IV Araseli 1000 mL 1,000 mL: 1,000 mL, IV, 20 mL/hr, Routine, Start date 01/22/23 12:05:00 EDT, 50 hour(s), Total volume (mL): 1,000, 95.2 kg, 2.15, m2 Prescriptions Prescribed omeprazole 40 mg Cap-DR: 40 mg = 1 cap(s), Oral, Daily, # 90 cap(s), Refills(s) 11, Pharmacy: [id number], 174, cm, 01/22/23 12:22:00 EDT, Height/Length Dosing, 95.2, kg, 01/22/23 12:22:00 EDT, Weight Dosing Documented Medications Documented amlodipine: 10 mg, Oral, Daily, Refills(s) 0, High blood pressure aspirin 81 mg Chew Tab: 81 mg = 1 tab(s), Chewed, Refills(s) 0, Prophylaxis hydrochlorothiazide-triamter abi 25 mg-37.5 mg oral capsule: 1 cap(s), Oral, Daily, Refill(s) 0, High blood pressure levothyroxine: 112 mcg, Oral, Daily, Refills(s) 0, Thyroid, Home Medications (5) Active amlodipine 10 mg, Oral, Daily aspirin 81 mg Chew Tab 81 mg = 1 tab(s), Chewed hydrochlorothiazide-triamter abi 25 mg-37.5 mg oral capsule 1 cap(s), Oral, Daily levothyroxine 112 mcg, Oral, Daily omeprazole 40 mg Cap-DR 40 mg = 1 cap(s), Oral, Daily Problem list: No problem items selected or recorded. Physical Examination Vital Signs 01/22/2023 13:55 EDT Heart Rate Monitored 57 bpm LOW Respiratory Rate Monitored 13 br/min Systolic Blood Pressure 110 mmHg Diastolic Blood Pressure 83 mmHg Mean Arterial Pressure, Cuff 92 mmHg SpO2 98 % 01/22/2023 13:40 EDT Heart Rate Monitored 71 bpm Respiratory Rate Monitored 23 br/min Systolic Blood Pressure 122 mmHg Diastolic Blood Pressure 75 mmHg Mean Arterial Pressure, Cuff 91 mmHg SpO2 100 % 01/22/2023 13:25 EDT Heart Rate Monitored 69 bpm bpm Respiratory Rate 17 br/min br/min SpO2 96 % % 01/22/2023 13:24 EDT Systolic Blood Pressure 110 mmHg mmHg Diastolic Blood Pressure 67 mmHg mmHg 01/22/2023 13:21 EDT Systolic Blood Pressure 114 mmHg mmHg Diastolic Blood Pressure 65 mmHg mmHg 01/22/2023 13:20 EDT Heart Rate Monitored 68 bpm bpm Respiratory Rate 17 br/min br/min SpO2 99 % % 01/22/2023 13:18 EDT Systolic Blood Pressure 109 mmHg mmHg Diastolic Blood Pressure 62 mmHg mmHg 01/22/2023 13:15 EDT Heart Rate Monitored 69 bpm bpm Respiratory Rate 17 br/min br/min Systolic Blood Pressure 106 mmHg mmHg Diastolic Blood Pressure 60 mmHg mmHg SpO2 98 % % 01/22/2023 13:14 EDT Systolic Blood Pressure 110 mmHg mmHg Diastolic Blood Pressure 62 mmHg mmHg 01/22/2023 13:12 EDT Systolic Blood Pressure 110 mmHg mmHg Diastolic Blood Pressure 65 mmHg mmHg 01/22/2023 13:11 EDT Systolic Blood Pressure 114 mmHg mmHg Diastolic Blood Pressure 63 mmHg mmHg 01/22/2023 13:10 EDT Heart Rate Monitored 74 bpm bpm Respiratory Rate 17 br/min br/min SpO2 98 % % 01/22/2023 13:09 EDT Systolic Blood Pressure 107 mmHg mmHg Diastolic Blood Pressure 64 mmHg mmHg 01/22/2023 13:08 EDT Systolic Blood Pressure 112 mmHg mmHg Diastolic Blood Pressure 66 mmHg mmHg 01/22/2023 13:06 EDT Systolic Blood Pressure 121 mmHg mmHg Diastolic Blood Pressure 68 mmHg mmHg 01/22/2023 13:05 EDT Heart Rate Monitored 85 bpm bpm Respiratory Rate 17 br/min br/min Systolic Blood Pressure 120 mmHg mmHg Diastolic Blood Pressure 71 mmHg mmHg SpO2 98 % % 01/22/2023 13:04 EDT Systolic Blood Pressure 122 mmHg mmHg Diastolic Blood Pressure 77 mmHg mmHg 01/22/2023 13:03 EDT Systolic Blood Pressure 115 mmHg mmHg Diastolic Blood Pressure 72 mmHg mmHg 01/22/2023 13:02 EDT Systolic Blood Pressure 114 mmHg mmHg Diastolic Blood Pressure 75 mmHg mmHg 01/22/2023 13:01 EDT Respiratory Rate 17 br/min br/min Systolic Blood Pressure 120 mmHg mmHg Diastolic Blood Pressure 84 mmHg mmHg 01/22/2023 13:00 EDT Heart Rate Monitored 78 bpm bpm Systolic Blood Pressure 122 mmHg mmHg Diastolic Blood Pressure 81 mmHg mmHg SpO2 98 % % 01/22/2023 12:59 EDT Systolic Blood Pressure 128 mmHg mmHg Diastolic Blood Pressure 84 mmHg mmHg 01/22/2023 12:57 EDT Systolic Blood Pressure 132 mmHg mmHg Diastolic Blood Pressure 83 mmHg mmHg 01/22/2023 12:55 EDT Heart Rate Monitored 69 bpm bpm Respiratory Rate 17 br/min br/min Systolic Blood Pressure 112 mmHg mmHg Diastolic Blood Pressure 82 mmHg mmHg SpO2 97 % % 01/22/2023 12:54 EDT Systolic Blood Pressure 146 mmHg mmHg Diastolic Blood Pressure 86 mmHg mmHg 01/22/2023 12:51 EDT Systolic Blood Pressure 138 mmHg mmHg Diastolic Blood Pressure 81 mmHg mmHg 01/22/2023 12:19 EDT Temperature Temporal Artery 36.8 DegC Heart Rate Monitored 56 bpm LOW Respiratory Rate Monitored 16 br/min Systolic Blood Pressure 140 mmHg HI Diastol (more content not included)... Normal [facility] Comment on above: Result Comment: Elec tronically Signed By: Jose Rossi DO\.br\Date and Time Signed: 01/22/23 14:27 EDT Progress Note-Physician Patient: RITU REYES Age: 57 years Sex: Male : 1965 Associated Diagnoses: None Author: Jose Rossi DO Preoperative Information Anesthesia history: Patient history: None. Family history+: None. Anesthesia results Informed consent: Signed by patient. Including risks, benefits, and alternatives related to the: Anesthetic plan, Postoperative pain management plan. Re-evaluation prior to induction: Jose Rossi DO. Health Status Allergies: Allergic Reactions (Selected) No Known Medication Allergies, Allergies (1) Active Reaction No Known Medication Allergies None Documented Current medications: (Selected) Inpatient Medications Ordered Sodium Chloride 0.9% IV Araseli 1000 mL 1,000 mL: 1,000 mL, IV, 20 mL/hr, Routine, Start date 01/22/23 12:05:00 EDT, 50 hour(s), Total volume (mL): 1,000, 95.2 kg, 2.15, m2 Documented Medications Documented amlodipine: 10 mg, Oral, Daily, Refills(s) 0, High blood pressure aspirin 81 mg Chew Tab: 81 mg = 1 tab(s), Chewed, Refills(s) 0, Prophylaxis hydrochlorothiazide-triamter abi 25 mg-37.5 mg oral capsule: 1 cap(s), Oral, Daily, Refill(s) 0, High blood pressure levothyroxine: 112 mcg, Oral, Daily, Refills(s) 0, Thyroid, Home Medications (4) Active amlodipine 10 mg, Oral, Daily aspirin 81 mg Chew Tab 81 mg = 1 tab(s), Chewed hydrochlorothiazide-triamter abi 25 mg-37.5 mg oral capsule 1 cap(s), Oral, Daily levothyroxine 112 mcg, Oral, Daily , Medications (1) Active Scheduled: (0) Continuous: (1) Sodium Chloride 0.9% 1,000 mL 1,000 mL, IV, 20 mL/hr PRN: (0) Problem list: No problem items selected or recorded., No qualifying data available Histories Past Medical History: No active or resolved past medical history items have been selected or recorded. Family History: No family history items have been selected or recorded. Procedure history: No active procedure history items have been selected or recorded. Social History Social & Psychosocial Habits Tobacco 01/08/2023 Tobacco Use: Never (less than 100 in l Smokeless tobacco use: Never . Physical Examination Vital Signs 01/22/2023 12:19 EDT Temperature Temporal Artery 36.8 DegC Heart Rate Monitored 56 bpm LOW Respiratory Rate Monitored 16 br/min Systolic Blood Pressure 140 mmHg HI Diastolic Blood Pressure 82 mmHg Blood Pressure Location Left arm SpO2 98 % Vital Signs (last 24 hrs) Last Charted Resp Rate 16 br/min (JAN 22:) SBP H 140mmHg (JAN 22:) DBP 82 mmHg (JAN 22:) SpO2 98 % (JAN 22:) Weight 95.2 kg (JAN 22:20) BMI 31.44 (JAN 22:) Measurements from flowsheet : Measurements 01/22/2023 12:20 EDT Height/Length Measured 174 cm Height/Length Dosing 174.0 cm Weight Dosing 95.2 kg BSA Measured 2.15 m2 Body Mass Index Measured 31.44 kg/m2 Weight Measured 95.2 kg Airway: Mallampati classification: III (soft palate, base of uvula visible). Distance: Mentohyoid, Interincisive, Thyromental, Mentosternal, Adequate. HENT: Normocephalic. Respiratory: Lungs are clear to auscultation. Cardiovascular: Regular rhythm. Gastrointestinal: Soft. Review / Management Results review Plan [place] [employer] (ASA) physical status classification: Class II. Anesthetic Preoperative Plan: Anesthesia General. [facility] Comment on above: Result Comment: Elec tronically Signed By: Jose Rossi DO\.br\Date and Time Signed: 01/22/23 12:31 EDT Insurance Correspondenceon 0 01-10-2023 Insurance Correspondence [id number]:127 [facility] Consent for Procedure/Surger yon 01-09-2023 Consent for Procedure/Surgery [id number]#[id number]:127 [facility] Ambulatory Visit Summaryon 0 01-08-2023 Ambulatory Visit Summary RITU REYES :1965 Visit Date:01/08/2023 Ambulatory Visit Instructions Your Diagnosis Rectal bleeding Dysphagia Your Care Team Attending Physician - Tevin ROBLES, Chris Pennington Primary Care Physician - SETH TURCIOS MD Referring Physician - SETH TURCIOS MD This Is Your Medications List amlodipine aspirin (aspirin 81 mg Chew Tab) hydrochlorothiazide-triamter abi levothyroxine Discharge Vitals Temperature (Temporal Artery) 36.8 ?C Heart Rate (Peripheral) 83 Respiratory Rate 16 Blood Pressure 157/96 Height 69 in Height 174 cm Weight 209.44 lb Weight 95.2 kg BMI 31.44 What to do next Scheduled Follow-Up Appointments Friday 8:45 AM EDT With: Tevin ROBLES, Chris Pennington Where: [facility] Gastroenterology Office/Clin ic Noteon 01-08-2023 Gastroenterology Office/Clinic Note Chief Complaint ref by asa- rectal bleeding and diarrhea HPI Staff This is a 57 year old male who presents today for a referral by Asa for complaints of rectal bleeding and diarrhea. Diarrhea: How many BM a day (normal <4): 2 daily When did it start: years ago, every since GB has been removed Constant? Or alternate with normal BM or constipation: constant Associated symptoms: no Previous work up: none TSH: Celiac panel Calprotectin C Diff Enteric panel or stool culture Stool fat Other: Denies any family history of colon cancer/polyps. Denies abdominal pain, constipation. Denies any previous EGD, imaging or labs. Last colon completed 2016 at [facility], normal History of Present Illness Symptoms started last month, blood and loose stool He has loose stools 15 years ago, since then he has loose stools, 2-3 BM a day, with urgency occasionally He reports occasional dysphagia, food getting stuck in the middle of his chest Review of Systems PHQ Score Initial Depression Screen Score: 0 General: in Nad Abdomen: Soft, NTND Physical Exam Vitals & Measurements T: 36.8 ?C(Temporal Artery) HR: 83(Peripheral) RR: 16 BP: 157/96 HT: 69 in HT: 174 cm WT: 95.2 kg WT: 209.44 lb BMI: 31.44 Assessment/Plan 1. Rectal bleeding (K62.5: Hemorrhage of anus and rectum) Differential include infectious, inflammatory, hemorrhoids Likely has bile acid diarrhea as well related to his gallbladder, will consider Colestid after the colonoscopy We will get some blood work as well to rule out other causes of loose stools Ordered: C-Reactive Protein Calprotectin, Fecal CBC w/ Auto Diff Celiac Disease Comprehensive Clostridium Difficile PCR Colonoscopy (Hospital Procedure) Colonoscopy (Hospital Procedure) Comprehensive Metabolic Panel EGD Endoscopy (Hospital Procedure) EGD Endoscopy (Hospital Procedure) Enteric Panel by PCR O & P Exam, Routine 2. Dysphagia (R13.10: Dysphagia, unspecified) We will do EGD with esophageal biopsy and dilation Follow-up No qualifying data available Problem List/Past Medical History Ongoing No qualifying data Historical No qualifying data Medications amlodipine aspirin 81 mg Chew Tab hydrochlorothiazide-triamter abi levothyroxine Allergies No Known Medication Allergies Social History Tobacco Never (less than 100 in lifetime) Tobacco Use:. Never Smokeless Tobacco Use:., 01/08/2023 Immunizations Vaccine Date Status Comments SARS-CoV-2 mRNA (mglulu 5y-11y) vac - Not Given Patient Refuses influenza virus vaccine, inactivated - Not Given Patient Refuses Normal [facility] Comment on above: Result Comment: Elec tronically Signed By: Tevin ROBLES, Chris Pennington\.br\Date and Time Signed: 01/08/23 09:13 EDT Physician Referralon 023 Physician Referral [id number]:127 Normal [facility] Physician Referral [id number]#[id number]:127 Normal [facility] CBC AUTO DIFFon 07-29-2022 BASO # 0.0 103/ul Normal 0.0-0.1 [facility] Comment on above: Performed By: #### C BC #### [facility] [address] [place] [address] Dr. Jerrod Hollis Basophils/100 WBC (Bld) 0.7 % Normal 0.2-2.0 [facility] Comment on above: Performed By: #### C BC #### [facility] [address] [place] [address] Dr. Jerrod Hollis EO # 0.2 103/ul Normal 0.0-0.7 [facility] Comment on above: Performed By: #### C BC #### [facility] [address] [place] [address] Dr. Jerrod Hollis Eosinophils/100 WBC (Bld) 2.7 % Normal 0.9-7.0 [facility] Comment on above: Performed By: #### C BC #### [facility] [address] [place] [address] Dr. Jerrod Hollis Erythrocyte distribution width (RBC) [Ratio] 12.5 % Normal 11.0-15.0 [facility] Comment on above: Performed By: #### C BC #### [facility] [address] [place] [address] Dr. Jerrod Hollis Hematocrit (Bld) [Volume fraction] 40.0 % Critically low 42.0-54.0 [facility] Comment on above: Performed By: #### C BC #### [facility] [address] [place] [address] Dr. Jerrod Hollis Hemoglobin (Bld) [Mass/Vol] 13.8 g/dL Critically low 14.0-18.0 [facility] Comment on above: Performed By: #### C BC #### [facility] [address] [place] [address] Dr. Jerrod Hollis IG # 0.01 10e3/ul Normal 0.00-0.03 [facility] Comment on above: Performed By: #### C BC #### [facility] [address] [place] [address] Dr. Jerrod Hollis IG % 0.2 % Normal 0.0-0.5 [facility] Comment on above: Performed By: #### C BC #### [facility] [address] [place] [address] Dr. Jerrod Hollis LYMPH # 2.0 103/ul Normal 1.2-3.8 [facility] Comment on above: Performed By: #### C BC #### [facility] [address] [place] [address] Dr. Jerrod Hollis Lymphocytes/100 WBC (Bld) 33.8 % Normal 20.5-60.0 [facility] Comment on above: Performed By: #### C BC #### [facility] [address] [place] [address] Dr. Jerrod Hollis MANUAL DIFF REQ NO Normal [facility] Comment on above: Performed By: #### C BC #### [facility] [address] [place] [address] Dr. Jerrod Hollis MCH (RBC) [Entitic mass] 31.3 pg Normal 25.9-34.0 [facility] Comment on above: Performed By: #### C BC #### [facility] [address] [place] [address] Dr. Jerrod Hollis MCHC (RBC) [Mass/Vol] 34.5 g/dL Normal 29.9-35.2 [facility] Comment on above: Performed By: #### C BC #### [facility] [address] [place] [address] Dr. Jerrod Hollis MCV (RBC) [Entitic vol] 90.7 fL Normal 80.0-94.0 [facility] Comment on above: Performed By: #### C BC #### [facility] [address] [place] [address] Dr. Jerrod Hollis MONO # 0.5 103/ul Normal 0.3-0.8 [facility] Comment on above: Performed By: #### C BC #### [facility] [address] [place] [address] Dr. Jerrod Hollis Monocytes/100 WBC (Bld) 8.1 % Normal 1.7-12.0 [facility] Comment on above: Performed By: #### C BC #### [facility] [address] [place] [address] Dr. Jerrod Hollis NEUT # 3.2 103/ul Normal 1.4-6.5 [facility] Comment on above: Performed By: #### C BC #### [facility] [address] [place] [address] Dr. Jerrod Hollis Neutrophils/100 WBC (Bld) 54.5 % Normal 43.0-75.0 [facility] Comment on above: Performed By: #### C BC #### [facility] [address] [place] [address] Dr. Jerrod Hollis Platelet mean volume (Bld) [Entitic vol] 9.0 fL Critically low 9.5-13.5 [facility] Comment on above: Performed By: #### C BC #### [facility] [address] [place] [address] Dr. Jerrod Hollis PLT 224 103/ul Normal 150-450 [facility] Comment on above: Performed By: #### C BC #### [facility] [address] [place] [address] Dr. Jerrod Hollis RBC 4.41 106/ul Critically low 4.70-6.10 [facility] Comment on above: Performed By: #### C BC #### [facility] [address] [address] [address] Jerrod Hollis WBC 5.9 103/ul Normal 4.0-11.0 [facility] Comment on above: Performed By: #### C BC #### [facility] [address] [address] [address] Jerrod Hollis POINT OF CARE GLUCOSEon 07-13 Glucose [Mass/Vol] 110 mg/dL Critically high 74-106 [facility] Comment on above: Performed By: #### P OCGLUC #### [facility] [address] [address] [address] Jerrod Hollis Glucose [Mass/Vol] 88 mg/dL Normal 74-106 [facility] Comment on above: Performed By: #### P OCGLUC #### [facility] [address] [address] [address] Jerrod Hollis PROF CHEM 8 (BAS METB)on Anion gap [Moles/Vol] 13.0 mmol/L Normal [facility] Comment on above: Performed By: #### B MP ####[facility] [address] [address]Dr. Jerrod Hollis Calcium [Mass/Vol] 8.8 mg/dL Normal 8.5-10.1 [facility] Comment on above: Performed By: #### B MP ####[facility] [address] [address]Dr. Jerrod Hollis Chloride [Moles/Vol] 104 mmol/L Normal 98-107 [facility] Comment on above: Performed By: #### B MP ####[facility] [address] [address]Dr. Jerrod Hollis CO2 [Moles/Vol] 26.5 mmol/L Normal 21.0-32.0 [facility] Comment on above: Performed By: #### B MP ####[facility] [address] [address]Dr. Jerrod Hollis Creatinine [Mass/Vol] 0.83 mg/dL Normal 0.70-1.30 [facility] Comment on above: Performed By: #### B MP ####[facility] [address] [address]Dr. Geraldinezenobia Bunny EGFR-AF CANADIAN >60 Normal >=60 [facility] Comment on above: Performed By: #### B MP ####[facility] [address] [id number]. Geraldinezenobia Bunny EGFR-NON AF CANADIAN >60 Normal >=60 [facility] Comment on above: Performed By: #### B MP ####[facility] [address] [address]Dr. Jerrod Hollis Glucose [Mass/Vol] 107 mg/dL Critically high 74-106 [facility] Comment on above: Performed By: #### B MP ####[facility] [address] [place], [place] [address]Dr. Jerrod Hollis Potassium [Moles/Vol] 3.5 mmol/L Normal 3.5-5.1 [facility] Comment on above: Performed By: #### B MP ####[facility] [address] [place], [place] [address]Dr. Jerrod Hollis Sodium [Moles/Vol] 140 mmol/L Normal 136-145 [facility] Comment on above: Performed By: #### B MP ####[facility] [address] [place], [place] [address]Dr. Jerrod Hollis Urea nitrogen [Mass/Vol] 14.0 mg/dL Normal 7.0-18.0 [facility] Comment on above: Performed By: #### B MP ####[facility] [address] [place], [place] [address]Dr. Jerrod Hollis Urea nitrogen/Creatinin e [Mass ratio] 16.9 mg/mg Normal [facility] Comment on above: Performed By: #### B MP ####[facility] [address] [place], [place] [address]Dr. Jerrod Hollis CT ANKLE RT WO CONon 023 CT ANKLE RT WO CON EXAMINATION: CT ANKL E RT WO CON HISTORY: Idiopathic osteoarthritis ; chronic right ankle pain and stiffness COMPARISON: XR ankle right 06/20/2022, CT ankle right 10/24/2021 TECHNIQUE: Multi-planar CT images were created without IV contrast. Dose reduction techniques were achieved by using automated exposure control and/or adjustment of mA and/or kV according to patient size and/or use of iterative reconstruction technique. FINDINGS: BONES: Stable talocalcaneal fusion without hardware failure. Partial midfoot fusion via dorsal plate and screws. 2 remnant legs from fracture and bone staple within medial and middle cuneiforms. Marked degenerative changes and partial osseous fusion of the midfoot. SOFT TISSUES: Subcutaneous edema. Soft tissue anterior to tibiotalar joint may represent scarring or small fluid collection. EFFUSION: None visible. OTHER: Negative. IMPRESSION: 1. Stable surgical changes without evidence of hardware failure change in alignment. 2. Osseous degenerative changes and fusion of the midfoot and hindfoot. Prior bone harvesting from distal tibia. 3. Small seroma versus soft tissue scarring anterior to the tibiotalar joint which may contribute to patient's symptoms. Electronically authenticated by: LORETO MARTINS Date: 2022-06-25 17:10 Normal [facility] US THYROIDon 06-19-2022 US THYROID EXAMINATION: US THYR OID HISTORY: Non-toxic uninodular goiter COMPARISON: No relevant comparison available. TECHNIQUE: Sonographic images of the thyroid gland were obtained. FINDINGS: The right thyroid lobe is normal in size, contour and echotexture measuring 4.7 x 1.7 x 1.5 cm. Mildly heterogeneous echotexture with no nodules over 5 mm The thyroid isthmus measures 2.3 mm, no focal nodule The left thyroid lobe is normal in size, contour and echotexture measuring 4.3 x 1.5 x 1.8 cm. Mildly heterogeneous echotexture with no nodules over 5 mm IMPRESSION: No enlargement or significant nodule Electronically authenticated by: ADARSH MCGEE Date: 2022-06-19 09:24 Normal [facility] ECHOCARDIO M/2D COMPLETEon 0 06-18-2022 ECHOCARDIO M/2D COMPLETE Patient: RITU REYES Exam Date: 06/18/2022 : 1965 Gender:M Ordering : DR SETH TURCIOS Admission #: [id number] Family : Order #: [id number] CLICK HERE TO VIEW EXAM ECHOCARDIOGRAM REPORT PROCEDURE: CARDIO PULMONARY ECHOCARDIO M/2D COMP INDICATIONS: Mild Aortic regurgitation COMPARISON: None. DESCRIPTION: COMPLETE ECHOCARDIOGRAM Real-time transthoracic echocardiography with 2D, M-mode, spectral and color flow Doppler performed. QUALITY: Technical quality was good. LEFT VENTRICLE: Normal chamber size. Normal left ventricular wall thickness. Global left ventricular systolic function is normal. LV EF: Calculated left ventricular ejection fraction is 65% DIASTOLIC: Normal diastolic function. ATRIAL SEPTUM: LEFT ATRIUM: Normal chamber size. RIGHT ATRIUM: Normal chamber size. RIGHT VENTRICLE: Normal chamber size. Normal right ventricular systolic function. TRICUSPID VALVE: Normal mobility and thickness. No stenosis with trivial regurgitation. No evidence of pulmonary hypertension. RVSP 26 mmHg MITRAL VALVE: Normal mobility and thickness. No mitral valve prolapse. No evidence of mitral valve stenosis. There is no mitral annular calcification. Trivial mitral regurgitation. AORTIC VALVE: Normal trileaflet appearance. No visible sclerosis. Normal leaflet mobility. No evidence of aortic valve stenosis. Mild aortic regurgitation. AORTIC ROOT: Normal diameter and appearance. PULMONIC VALVE: Normal thickness and mobility. No stenosis. Trivial regurgitation. PERICARDIUM: No evidence of pericardial effusion. IVC: Collapses with inspirations. Normal size. PLEURA: CONCLUSION: 1. Normal ventricular function. LVEF is 65%. 2. Mild aortic regurgitation. 3. Normal right-sided pressures. 4. No pericardial effusion. Adult Echocardiography Procedure Report Left Ventricle LVEDD (3.7 - 5.6 cm): 4.68 cm LVESD (2.2 - 4.0 cm): 2.87 cm LVIVS thickness (0.6 - 1.2 cm): 0.95 cm LVPW thickness (0.5 - 1.0 cm): 1.00 cm e': 0.08 m/s E - e': 8.79 LVOT Max Gradient: 3.59 mm[Hg] Peak Velocity (LVOT): 0.95 m/s Mean Velocity (LVOT): 0.59 m/s LVOT Diameter 1.97 cm Left Ventricular Ejection Fraction: 65% Left Atrium LA Volume Index (2D A2C): 67.17 ml, 67.17 ml Left Atrium Systolic Dimension: 3.64 cm Mitral Valve MV E to A Ratio: 0.91 Mitral Valve A-Wave Peak Velocity: 0.74 m/s Mitral Valve E-Wave Peak Velocity: 0.68 m/s Right Ventricle RV Internal Diastolic Dimension: 3.38 cm Aorta AO Root Diam: 3.14 cm Ascending Ao Diam: 3.17 cm Aortic Valve AoV Area ([place]): 2.68 cm2, 2.68 cm2 AoV Area (VTI): 2.58 cm2, 2.58 cm2 Deceleration [place]: 1.15 m/s2 Pressure Half-Time: 972.98 ms Peak Velocity(Antegrade Flow): 1.08 m/s Peak Gradient(Antegrade Flow): 4.63 mm[Hg] Mean Velocity(Antegrade Flow): 0.72 m/s Mean Gradient(Antegrade Flow): 2.32 mm[Hg] Velocity Time Integral: 22.46 cm Tricuspid Valve Peak Velocity (Regurgitant Flow): 1.79 m/s, 1.98 m/s, 2.42 m/s Peak Velocity: 0.51 m/s Pulmonic Valve Mean Gradient: 2.88 mm[Hg], 3.40 mm[Hg] Mean Velocity: 0.78 m/s, 0.85 m/s Peak Velocity: 1.21 m/s, 1.28 m/s Peak Gradient: 5.85 mm[Hg], 6.56 mm[Hg] Right Atrium Right Atrium Systolic Pressure: 36.44 ml, 36.44 ml Dictated by: Robe Kamara M.D. on 06/20/2022 at 10:00 Approved by: Robe Kamara M.D. on 06/20/2022 at 10:[address] [facility] 05-29-2022 [facility] Office Visit (ORFTMN ) RITU REYES ([id number]) 1965 M Date Time Provider Department 05/29/22 12:40 PM NANDINI KANG During your visit today, we recorded the following information about you: Weight Height 90.7 kg 1.753 m Nandini Kang MD 05/29/2022 4:08 PM Signed May 29, 2022 HPI: Ritu Reyes is a 57 yo male with history of 5 prior surgeries to right foot and ankle starting 4 years ago. Sounds like PTT issues. Most recent surgery was 6 months ago. Has been told he needs TAA. Pain Descriptors: Duration: chronic Severity: moderate Quality: ache Location: foot, ankle Context: worse with activity and dependent position Modifying Factors: improved with rest and elevation Supporting Subjective Information Below: Estimated body mass index is 29.53 kg/m? as calculated from the following: Height as of this encounter: 175.3 cm (5' 9 ). Weight as of this encounter: 90.7 kg (200 lb). 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 Hypothyroidism, acquired 10/2016 Initial TSH 16 Left thyroid nodule 11/07/2016 NEGATIVE MEDICAL HISTORY Surgical History: PAST SURGICAL HISTORY Procedure Laterality Date GRAHAM W/O FACETEC FORAMOT/DSC 1/2 VRT SGM CRV Laminectomy, cervical LAMINECTOMY W/O FFD 1/2 VERT SEG LUMBAR 2016 Laser surgery center PAST SURGICAL HISTORY OF 2014 Craniotomy right temporal Family History: FAMILY HISTORY Problem Relation Age of Onset Thyroid Mother Possible Cancer Maternal Aunt Metastatic Cancer Maternal Uncle No idea cancer Medications: Current Outpatient Medications Medication Sig amLODIPine-Atorvastatin 5-10 mg per tablet Take 1 tablet by mouth once daily. aspirin 81 mg chewable tablet Take 81 mg by mouth once daily. levothyroxine (SYNTHROID) 75 mcg tablet Take 75 mcg by mouth daily before breakfast. esomeprazole magnesium (NEXIUM) 40 mg packet Take 40 mg by mouth once daily. No current facility-administered medications for this visit. Allergies: Patient has no known allergies. Review Of Systems GENERAL:Negative for malaise, significant weight loss and fever HEENT:Negative for frequent or significant headaches, significant changes in vision or vision problems, significant ear problems or hearing loss, nasal discharge or nose bleeds and sore throat, difficulty swallowing, mouth lesions NECK:Negative for lumps, goiter, pain and significant neck swelling RESPIRATORY: Negative for cough, wheezing and shortness of breath CARDIOVASCULAR: Negative for chest pain, leg swelling and palpitations GASTROINTESTINAL: Negative for abdominal discomfort, blood in stools or black stools and change in bowel habits GENITOURINARY: Negative for dysuria, frequency and incontinence MUSCULOSKELETAL: Negative for joint pain or swelling, back pain, and muscle pain. NEUROLOGIC:Negative for focal numbness or weakness, headaches and dizziness. SKIN:Negative for lesions, rash, and itching. PSYCHIATRIC: Negative for sleep disturbance, mood disorder and recent psychosocial stressors. HEMATOLOGIC/LYMPHATIC/IMMUNO LOGIC:Negative for prolonged bleeding, bruising easily, and swollen nodes. ENDOCRINE: Negative for cold or heat intolerance, polyuria, polydipsia and goiter. Physical Exam: Basic physical examination reveals the patient to be in no acute distress. The patient is alert and oriented x 3 Mood and affect are appropriate. Head is atraumatic, normocephalic. Neck ROM grossly intact. Mucous membranes are moist. Eyes, ears, and nose are normal in appearance. Hearing is grossly intact. Breathing is unlabored with grossly normal chest motion. Limited Upper Extremity Exam: Shoulders with grossly intact ROM and strength, no obvious deformity. Elbows with grossly intact ROM and strength, no obvious deformity. Hand and wrist with grossly intact ROM and strength, no obvious deformity. Focused orthopaedic examination reveals the following: Skin intact without lesions. Healed incisions anteromedial foot and anterolateral Significant stiffness to foot and ankle Alignment intact Imaging: XR with retained midfoot hardware CT with fusion of midfoot and ST joints Joint space of ankle maintained on XR Mild degenerative changes to ankle on CT Severe bone grafting defect from distal tibia metaphysis 2cm from plafond Assessment and Plan: Right foot and ankle pain We reviewed his imaging and complaints I do not recommend TAA for him as his joint is still well maintained and his pain is significant in the foot as well I recommended her consider pursuing an Exo Sym brace as this would likely address his symptoms more completely Return to clinic: prn X-Ray's at next visit: No PCP: No primary care provider on file. (more content not included)... Normal [facility] POINT OF CARE GLUCOSEon 10-2 Glucose [Mass/Vol] 92 mg/dL Normal 74-106 [facility] Comment on above: Performed By: #### P OCGLUC #### [facility] [address] [address] [address] Jerrod Hollis Glucose [Mass/Vol] 92 mg/dL Normal 74-[address] [facility] Comment on above: Performed By: #### P OCGLUC ####[facility] [id number] [place], [place] [address]OwDr. Jerrod Hollis [facility]13 SARS-CoV-2 (COVID-19) RNA ROLDAN+probe Ql (Unsp spec) Not detected Normal NOT DETECTED The [facility] Comment on above: Result Comment: This test is not yet approved or cleared by the [place] FDA. When there are no FDA-approved or cleared tests available, and other criteria are met, FDA can make tests available under an emergency access mechanism called an Emergency Use Authorization (EUA). The EUA for this test is supported by the [place] of Health and Human Service's (HHS's) declaration that circumstances exist to justify the emergency use of in vitro diagnostics for the detection and/or diagnosis of the virus that causes COVID-19. This EUA will remain in effect (meaning this test can be used) for the duration of the COVID-19 declaration justifying emergency of IVDs, unless it is terminated or revoked by FDA (after which the test may no longer be used). When diagnostic testing is negative, the possibility of a false negative should be considered in the context of a patient's recent exposures and the presence of clinical signs and symptoms consistent with SARS-CoV-2. Performed By: #### C VDTBH #### [facility] [address] [place], [place] [address] Dr. Jerrod Hollis PROF CHEM 8 (BAS METB)on Anion gap [Moles/Vol] 9.2 mmol/L Normal [facility] [place] [facility] Comment on above: Performed By: #### B MP ####[facility] [address] [place], [place] [address]OxDr. Jerrod Hollis Calcium [Mass/Vol] 9.0 mg/dL Normal 8.5-10.[address] [facility] Comment on above: Performed By: #### B MP ####[facility] [address] [place], [place] [address]LhDr. Jerrod Hollis Chloride [Moles/Vol] 103 mmol/L Normal 98-107 [facility] Comment on above: Performed By: #### B MP ####[facility] [address] [address]Dr. Jerrod Hollis CO2 [Moles/Vol] 29.6 mmol/L Normal 21.0-32.0 [facility] Comment on above: Performed By: #### B MP ####[facility] [address] [address]Dr. Jerrod Hollis Creatinine [Mass/Vol] 0.77 mg/dL Normal 0.70-1.30 [facility] Comment on above: Performed By: #### B MP ####[facility] [id number] [place], [place] [address]Dr. Jerrod Hollis EGFR-AF CANADIAN >60 Normal >=60 [facility] Comment on above: Performed By: #### B MP ####[facility] [address] [place], [place] [address]Dr. Jerrod Hollis EGFR-NON AF CANADIAN >60 Normal >=60 [facility] Comment on above: Performed By: #### B MP ####[facility] [address] [place], [place] [address]Dr. Jerrod Hollis Glucose [Mass/Vol] 84 mg/dL Normal 74-[address] [facility] Comment on above: Performed By: #### B MP ####[facility] [id number] [place], [place] [address]Dr. Jerrod Hollis Potassium [Moles/Vol] 3.8 mmol/L Normal 3.5-5.1 [facility] Comment on above: Performed By: #### B MP ####[facility] [id number] [place], [place] [address]Dr. Jerrod Hollis Sodium [Moles/Vol] 138 mmol/L Normal 136-[address] [facility] Comment on above: Performed By: #### B MP ####[facility] [address] [place], [place] [address]Dr. Jerrod Hollis Urea nitrogen [Mass/Vol] 10.0 mg/dL Normal 7.0-18.0 The [facility] Comment on above: Performed By: #### B MP ####[facility] [address] [place], [place] [address]Ui. Jerrod Hollis Urea nitrogen/Creatinin e [Mass ratio] 13.0 mg/mg Normal [facility] [place] [facility] Comment on above: Performed By: #### B MP ####[facility] [address] [place], [place] [address]N[address]. Jer[address] CT Chest w/o Contraston 11-14 CT Chest w/o Contrast EXAM: CT chest INDICATION: Follow-up nodules TECHNIQUE: Helical CT was performed through the chest without IV contrast. All CT scans at this facility use dose modulation, iterative reconstruction, and/or weight based dosing when appropriate to reduce radiation dose to as low as reasonably achievable. COMPARISON: 11/14/2020 FINDINGS Lungs: Stable subcentimeter probable calcified nodules consistent with granulomas. No new nodule. Lungs otherwise clear Pleura: No pleural effusion or thickening Mediastinum: Calcified hilar nodes bilaterally otherwise mediastinum unremarkable.. No pathologically enlarged lymph nodes. Vascular structures: No thoracic aortic aneurysm or dissection Chest wall: Normal Upper abdomen: Visualized portions of the upper abdomen show no significant abnormality. Left hepatic cyst noted. Bones: No aggressive skeletal lesions IMPRESSION: No change. Stable benign appearing nodules Report reported and signed by Amrik Diaz on 12/12/2021 1634 Normal [facility] [employer] Mechanic CT ANKLE RT WO CONon 022 CT ANKLE RT WO CON EXAMINATION: CT ANKL E RT WO CON HISTORY: Postoperative ankle pain COMPARISON: X-rays 09/19/2021. TECHNIQUE: Axial CT imaging is performed through the ankle. Sagittal and coronal reformatted/reconstructed sequences were additionally performed Dose reduction techniques were achieved by using automated exposure control and/or adjustment of mA and/or kV according to patient size and/or use of iterative reconstruction technique. FINDINGS: Patient is status post hindfoot and midfoot arthrodesis. The internal hardware exhibits no gross visualized acute irregularity. Distal tibia bone graft site is still clearly visualized with limited ossification. No visualized fracture, dislocation or subluxation. Degenerative changes of the talocrural articulation IMPRESSION: Postoperative changes with no gross acute abnormality Electronically authenticated by: ADARSH BEVERLY Date: 2021-10-24 16:21 Normal [facility] [place] [facility] Progress Noteson 06-08-2021 [employer] Interface Message Text CC: TED Referred by: Dr Love / Moraima Toussaint MD HPI History of obstructive sleep apnea with CPAP intolerance and AHI of 26.2 Underwent hypoglossal nerve stimulation implantation on 05/31/2021 He is here for his 1st postop visit and is doing well Exam Blood Pressure 131/89 Pulse 79 Temperature 97.9 ???F (36.6 ???C) (Temporal) Respiration 18 Height 5' 8 (1.727 m) Weight 200 lb (90.7 kg) Oxygen Saturation 100% Body Mass Index 30.41 kg/m??? A detailed otolaryngological examination including examination of the facial appearance and function, auricles, ear canals, tympanic membranes, nasal aperture and passages, nasal septum, lateral nasal wall, turbinates oral cavity, tongue, oropharynx, dentition, neck, laryngotracheal complex, thyroid parotids, TMJs was normal except stated below: All incisions healing nicely Margin mandibular nerve intact. Hypoglossal nerve intact with symmetric tongue protrusion Assessment and plan: This is a a 56 year old male who presents today for obstructive sleep apnea, status post hypoglossal nerve stimulation implantation 05/31/2021. Preop AHI was 26.2 PRN f/u with me Normal [facility] Telephone Encounteron 2021 [employer] Aut[employer] Interface Message Text Situation: Pt calling for clarification on home meds Background: Discharged home yesterday Assessment: n/a Recommendation: Pt advised to resume home medications like BP and thyroid medications. Pt verbalized understanding and agreed to plan of care. Normal [facility] Care Plan Noteon 06-01-2021 [employer] Authentication Interface Message Text Problem: Routine Care: Goal: Patient care will be managed and maintained throughout hospital stay per unit specific routine care procedure Outcome: Progressing Problem: Acute Pain: Goal: Ability to identify pain intensity on a pain scale and rate it consistently will be achieved and maintained Outcome: Progressing Problem: Impaired Skin Integrity: Goal: Acheive wound healing without signs and symptoms of infection Outcome: Progressing Problem: Risk for Infection: Goal: Risk for infection will be reduced Outcome: Progressing Problem: VTE Prophylaxis: Goal: Will be free of DVT Outcome: Progressing Problem: Safety: Goal: Patient will remain free of falls during hospital stay Outcome: Progressing Problem: Discharge Planning: Goal: Discharge needs of the adult patient will be met Outcome: Progressing Normal [facility] Anesthesia Attestationon [employer] Aut[employer] Interface Message Text Anesthesia Attestation ATTESTATION OF INFORMED CONSENT FOR ANESTHESIA Anesthesia options were discussed with the patient and/or legal sales representative education courses. The risks, benefits and alternatives were reviewed. Questions regarding anesthesia were answered. Patient and/or legal sales representative education courses knows such anesthetics and procedures may be performed by Resident physicians, Certified Anesthesiologist Assistants, or Certified Nurse Anesthetists under the supervision of a physician. The patient /or the patient's legal sales representative education courses agree with the plan for anesthesia. Normal [facility] Anesthesia Postprocedure Ayala luationon 05-31-2021 [employer] Interface Message Text Anesthesia Postoperative Assessment: Vital Signs (most recent): BP 141/86 (BP Location: left arm) Pulse 94 Temp 36.5 ???C (97.7 ???F) (Oral) Resp 18 Ht 5' 8 (1.727 m) Wt 200 lb (90.7 kg) SpO2 94% BMI 30.41 kg/m??? Anesthesia Post Evaluation Patient location during evaluation: PACU Patient participation: complete - patient participated Level of consciousness: awake and alert Pain score: 4 Pain management: adequate Airway patency: patent Cardiovascular status: acceptable Respiratory status: Patient breathing comfortably on room air Hydration status: normal PONV: No nausea/vomiting reported I was personally responsible for performing the postop evaluation. ANESTHESIA COMPLICATIONS: No complications documented. Normal [facility] Anesthesia Preprocedure Eval uationon 05-31-2021 [employer] Aut[employer] Interface Message Text ASA: 2 PSE status: Had PSE PSE note and nursing documentation reviewed NPO status: >8 hours Review of Systems (Full ROS completed in PSE) Pulmonary (+) sleep apnea, Dental - negative ROS Endo (+) hypothyroidism, obesity Neuro/Psych - negative ROS Cardiovascular (+) hypertension, Surgical risk: intermediate; Cardiac condition: minor ECG reviewed GI/Hepatic/Renal - negative ROS Heme/Other - negative ROS Physical Exam Airway Mallampati: II TM distance: Adequate Micrognathia: Not present Jaw opening: Adequate Neck flexion: Limited Extension Dental PE (+) edentulous Pulmonary - pulmonary exam normal Comment: Chest clear to auscultation bilaterally Cardiovascular - cardiovascular exam normal Comment: RRR with S1S2; no murmurs, gallops, or rubs Neuro - neurological exam normal Comment: Awake, alert, oriented, No motor deficits and sensation grossly intact Plan Anesthesia plan: general (ETT) Medications may include (but not limited to): anxiolytics, narcotic analgesics, IV hypnotics, neuromuscular blockers and inhalational analgesics Pain management: May include (but not limited to): anxiolytics and narcotic analgesics Anesthesia risks / alternatives discussed pre-op Questions answered / anesthesia plan accepted Past medical history, surgical history, allergies, and medications reviewed. Pertinent laboratory tests, EKG, imaging, and consults reviewed. I have reviewed the entire pre-surgical evaluation telephone history and/ or history and physical, and I have personally seen and evaluated the patient, repeating meng portions of the history and physical examination. Normal [facility] [employer] Aut[employer] Interface Message Text Patient taken to PACU. Patient was awake, comfortable and stable on arrival. 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 Basic Operating Room Facts: Surgeon(s): Nandini Billingsley MD Anesthesiologist: Rudy Coates MD FUNERAL DIRECTOR/EMBALMER/OWNER: Rubi Lopez APRN-CRNA; Richa Blue APRN-CRNA Anesthesia Student: Ainsley Zambrano INSERTION, STIMULATOR, HYPOGLOSSAL NERVE (N/A ) Intraoperative Events: Hypotension ASA: 2 EBL: 10 mL Urine Not documented Lactated Ringers and NaCl 0.9%: Fluid Totals (Filter: LR and NaCl 0.9% Medications Shown) Medication Calculated Total Lactated Ringers 1,200 mL / 2 bags Cell Saver: Not documented Blood Volume Values: Blood Products None MTP Blood: MTP PRBC: Not documented MTP FFP: Not documented MTP PLT: Not documented MTP Cryo: Not documented MTP Whole Blood: Not documented Current Vasoactive Medications: {Vasoactive Medications: Ephedrine Lines, Drains, Airways Peripheral IV Access: 05/31/21 1241 20 gauge Anterior;Right Forearm (Active) Site Assessment WN 05/31/21 1527 Infusion Status Port #1 Infusing 05/31/21 1527 Airway Insertion Details [REMOVED] Advanced Airway: ETT, Oral;Cuffed #7 (Removed) 05/31/21 1352 Pre-Oxygenation/ Induction: Mask Rapid Sequence Induction?: Mask Ventilation: Easy;w/oral airway Blade size: Mac 4 Visualization: Grade 1 Airway Type: ETT, Oral;Cuffed Airway Size: #7 Post Insertion Assessment: Confirmation: Equal bilateral breath sounds, CO2 confirmed # Attempts >1: Special Equipment: Present on Admission?: Previously Removed / Not Present: Removal Reason: Not Removed at Discharge: Removed 05/31/21 1517 Location (cm) 22 05/31/21 1352 Measured from: Lips 05/31/21 1352 Secured via: Taped 05/31/21 1352 Site Assessment [facility] 05/31/21 1352 All non-working IVs have been removed: N/a Laboratory Data: CBC (last 3 years, up to 5 values) WBC RBC Hgb Hct MCV RDW Plt 05/14/21 1346 4.9 4.43 13.6 40.5 92 13.1 228 Basic Metabolic Panel None Basic Metabolic Panel None No results found for: INR No result for BNP LFT's (last 3 years, up to 5 values) None Arterial Blood Gases None Hand off Completed: Yes 1. The patient was identified. 2. Pertinent medical history was relayed. 3. A brief discussion was had about any pertinent surgical/ procedural issues. 4. Intraoperative/ anesthetic management issue and concerns were discussed. 5. Plans for the early post-operative period relayed. 6. An opportunity for questions and acknowledgment of understanding of the report was received. Richa Blue APRN-IRWIN Normal [facility] OP Noteon 05-31-2021 [employer] Authentication Interface Message Text Ritu Reyes [id number] Preoperative diagnosis: obstructive sleep apnea Postoperative diagnosis: obstructive sleep apnea Procedure: 1. Implantation of hypoglossal nerve generator including sensing and stimulation lead (Inspire) (cpt 75723) 2. Activation and complex programming of Inspire device (cpt 61611) Surgeon: Nandini Billingsley Dispatcher Radio surgeon: keyanna nielsen Anesthesia: General Indication: Patient with history of TED and CPAP intolerance, who was identified to be a good Inspire candidate. Risks and benefits had been reviewed in detail. Procedure: The patient was taken back to the operating room. Anesthesia was induced. A time-out was performed. Neck, shoulder roll placed to bring the neck into extension. Neuromonitoring leads were placed along the right lateral tongue and right anterior floor of mouth. 2 incisions were marked out on the right: at the anterior submental area on the, anterior chest, . These areas were injected with local. The patient was then prepped and draped sterilely. We started the procedure by placing the stimulation lead. The 4 cm incision was placed anterior to the submandibular gland reaching up to the midline. I dissected down, transected the platysma, and identified the anterior belly of the digastric. I then identified the digastric tendon. The posterior belly of the mylohyoid was identified. The submandibular gland was retracted posteriorly. The hypoglossal nerve was identified in its typical location. A large ranine vein was noted and dissected out anteriorly where it was clipped and transected. The plunging point of the hypoglossal nerve distal to the hyoglossal muscle was dissected out. Inclusion branches were dissected away from exclusion branches of the hypoglossal nerve. The bipolar neurostimulator helped us doing that. The stimulation lead was now brought around all hypoglossal nerve inclusion/ protractor branches. It was then secured to the digastric tendon with a 2-0 silk suture. Next, I prepared the generator pocket and the sensing leads pocket along the right anterior chest. A 2-inch incision was made between the third and fourth intercostal space and medial to the pectoral branch of the thoracoacromial artery. Dissection was carried down to the pectoralis major fascia where a pocket was developed bluntly. I then started spreading through the pectoralis major muscle bluntly and partially using a Bovie to transect and enlarged and the muscular pocket until I identified the medial portion of the pectoralis minor Muscle. With the Bovie, I released about 1 cm of the external intercostal muscle of the fourth rib and it immediately identified the internal intercostal muscle, running different direction along the intercostal space. The intercostalspace was now carefully dissected, a small malleable was placed to retract the external intercostal muscles while placing the sensing leads from medial and lateral direction. The lead with its tension loop bumper, was now secured with two 2-0 silk sutures along the muscles. The area was copiously irrigated with saline, a Valsalva test was performed showing no evidence of pneumothorax. The pectoralis major muscle pocket was readapted by inserting a [id number] 3-0 Vicryl suture. The stimulating lead was now tunneled in a subplatysmal plane from the submandibular area to the anterior chest wall, where it sensing leads and stimulating leads were both connected with the generator unit. The generator unit was secured to the pectoralis major muscle with a 2-0 silk suture. Next, I irrigated the stimulator cuff with saline. I, then, activated the hypoglossal nerve stimulator and went through different stimulation cycles testing different amplitudes and different thresholds. The tongue protrusion was straight and over the incisors to the left. We were able to get a tongue forward motion down to 0.5 V. The sensing stimulator also appeared to be functioning just fine. There were good pressure changes with inspiration and expiration. At this point, we irrigated all wounds copiously with saline and closed the incisions with 3-0 Vicryl for deep fascia, and 5-0 fast absorbing gut in a running fashion to close the skin, followed by application of a thin layer of Dermabond to all incisions. The patient was now awoken and taken back to the recovery room in stable condition. Normal [facility] Progress Noteson 05-31-2021 [employer] Authentication Interface Message Text 1530 X-ray done at bedside, no family present at this time Normal [facility] XR CHEST 1 VIEW AP OR PAon 0 05-31-2021 XR CHEST 1 VIEW AP OR PA EXAMINATION: XR CHEST 1 VIEW AP OR PA 05/31/2021 03:50 PM CLINICAL HISTORY: Reason for Exam: Pneumothorax assessment, post-procedure; PACU post procedure rule out pneumothorax ASSOCIATED DIAGNOSIS: Pneumothorax assessment, post-procedure PACU post procedure rule out pneumothorax TECHNOLOGISTS NOTE: COMPARISON: None Position and projection: AP erect. Limitations: Low lung volumes. Clinical considerations: Obtained from EMR. Status post implantation of hypoglossal nerve generator including sensing and stimulation lead (Inspire) on 05/31/2021 Lines, tubes, and devices: Right chest implanted Inspire device with a sensing electrode overlying the upper right chest and a stimulating electrode extending into the right neck. Cardiomediastinal silhouette: Normal heart size. Lungs and pleura: Mild bibasilar atelectasis. No pulmonary consolidation, pleural effusion or pneumothorax. Osseous structures: Lower cervical anterior spinal fixation hardware endplate spurring and bridging of multiple thoracic vertebra. Chest wall: Unremarkable. Included upper abdomen: Right upper quadrant surgical clips, likely related to prior cholecystectomy. IMPRESSION: 1. Inspire device. 2. Low lung volumes and mild bibasilar atelectasis. 3. No pneumothorax. MACRO: None Normal [facility] XR CHEST 2 VIEW PA+LATon XR CHEST 2 VIEW PA+LAT EXAMINATION: XR CHEST 2 VIEW PA+LAT CLINICAL HISTORY: Reason for Exam: Pneumothorax ASSOCIATED DIAGNOSIS: Pneumothorax TECHNOLOGISTS NOTE: COMPARISON: 05/31/2021 FINDINGS: Cardiomediastinal silhouette: Stable. Cardiac silhouette again at the upper limits of normal for size. Lungs/Pleura: No acute focal pulmonary process. Stable left basilar scarring. Musculoskeletal: No acute process. Stable postoperative changes of the spine. Stimulator device again identified. IMPRESSION: 1. No significant change compared to the previous study. 2. No pneumothorax. MACRO: None Normal [facility] Telephone Encounteron 2021 SARS-CoV-2 (COVID-19) RNA ROLDAN+probe Ql (Unsp spec) Patient scheduled for surgery 05/31/2021-requires pre-op COVID testing per ENT request. Patient prefers to complete testing closer to home @ [facility]. Provided PSE fax AND phone numbers. Instructed to also bring copy of results on day of surgery. Normal [facility] Telephone Encounteron 2021 [employer] Authentication Interface Message Text Arrangements to be made for pre-op COVID testing per ENT request. Normal [facility] COMPLETE BLOOD COUNTon 05-14 Erythrocyte distribution width (RBC) [Ratio] 13.1 % Normal 11.5-14.5 [facility] Comment on above: Performed By: #### C BC ####[facility] [address] [place] [address], [id number] Hematocrit (Bld) [Volume fraction] 40.5 % Low 41.0-53.0 [facility] Comment on above: Performed By: #### C BC ####[facility] [address] [place] [address], [address] Hemoglobin (Bld) [Mass/Vol] 13.6 g/dL Low 13.9-16.3 [facility] Comment on above: Performed By: #### C BC ####[facility] [address] [place] [address], [address] MCH (RBC) [Entitic mass] 30.8 pg Normal 26.0-34.0 [facility] Comment on above: Performed By: #### C BC ####[facility] [address] [place] [address], [address] MCHC (RBC) [Mass/Vol] 33.7 g/dL Normal 32.0-35.9 [facility] Comment on above: Performed By: #### C BC ####[facility] [address] [place] [address], [address] MCV (RBC) [Entitic vol] 92 fL Normal 80-100 [facility] Comment on above: Performed By: #### C BC ####[facility] [address] [place] [address], [address] Platelet mean volume (Bld) [Entitic vol] 8.1 fL Normal 7.5-11.2 [facility] Comment on above: Performed By: #### C BC ####[facility] [address] [place] [address], [address] Platelets (Bld) [#/Vol] 228 10*3/uL Normal 150-400 [facility] Comment on above: Performed By: #### C BC ####[facility] [address] [place] [address], [address] RBC (Bld) [#/Vol] 4.43 10*6/uL Low 4.50-5.90 [facility] Comment on above: Performed By: #### C BC ####[facility] [address] [place], [address] WBC (Bld) [#/Vol] 4.9 10*3/uL Normal 4.5-11.5 [facility] Comment on above: Performed By: #### C BC ####[facility] [address] [place], [address] PSE Appt H AND Raul [employer] Authentication Interface Message Text Patient was identified by name and date of . Payton Correa Performed EKG pt tolerated well, results given to Doctor for review Bill of rights provided to patient Patient's blood pressure is elevated, per patient asymptomatic. Normal [facility] Patient Instructionson 05-14 [employer] Authentication Interface Message Text On the morning of your surgery please take only the following medications, with a small sip of water: * gabapentin (NEURONTIN) 100 MG capsule * amLODIPine (NORVASC) 5 MG tablet * levothyroxine (SYNTHROID) 100 MCG tablet Please stop the Eliquis two days prior to surgery. Last day to take the Eliquis is on 05/28 Do not take any Aspirin 7 days before the surgery. Do not take any Ibuprofen, Aleve, Advil, Diclofenac, Meloxicam, Naproxen, or Motrin or any other NSAIDS 3 days before surgery. May take over the counter Acetaminophen (Tylenol) as needed for pain. Please hold all Vitamin E, Dawn 3, fish oil and herbal supplements for 1 week prior to surgery Normal [facility] Comprehensive Metabolic Pane marshall 03-28-2021 Albumin [Mass/Vol] 4.4 g/dL Normal 3.6-5.1 [facility] [employer] Comment on above: Performed By: #### C MP, TSH, LIPD #### [facility] [address] [place], [place] [id number] Albumin/Globulin [Mass ratio] 1.5 {ratio} Normal 1.0-2.5 [facility] [employer] Comment on above: Performed By: #### C MP, TSH, LIPD #### [facility] [address] [place], [place] [id number] ALP [Catalytic activity/Vol] 103 U/L Normal 40-129 [facility] Comment on above: Performed By: #### C MP, TSH, LIPD #### [facility] [address] [place], [place] [id number] ALT [Catalytic activity/Vol] 28 U/L Normal 9-46 [facility] Comment on above: Result Comment: 03/14 Female reference range changed. Performed By: #### C MP, TSH, LIPD #### [facility] [address] [place], [place] [id number] Anion gap [Moles/Vol] 17 mmol/L Normal 12-20 [facility] Comment on above: Result Comment: Effe ctive 04/19/2019 reference range changed. Performed By: #### C MP, TSH, LIPD #### [facility] [address] [place], [place] [id number] AST [Catalytic activity/Vol] 25 U/L Normal 10-40 [facility] Comment on above: Performed By: #### C MP, TSH, LIPD #### [facility] [address] [place], [place] [id number] Bilirubin [Mass/Vol] 0.78 mg/dL Normal 0.30-1.20 [facility] Comment on above: Performed By: #### C MP, TSH, LIPD #### [facility] [address] [place], [place] [id number] BUN/CREA 15 Ratio Normal 6-22 [facility] Comment on above: Performed By: #### C MP, TSH, LIPD #### [facility] [address] [place], [place] [id number] Calcium [Mass/Vol] 10.0 mg/dL Normal 8.6-10.2 [facility] Comment on above: Performed By: #### C MP, TSH, LIPD #### [facility] [address] [place], [place] [id number] Chloride [Moles/Vol] 103 mmol/L Normal 98-107 [facility] Comment on above: Performed By: #### C MP, TSH, LIPD #### [facility] [address] [place], [place] [id number] CO2 [Moles/Vol] 25 mmol/L Normal 20-31 [facility] Comment on above: Performed By: #### C MP, TSH, LIPD #### [facility] [address] [place], [place] [id number] Creatinine [Mass/Vol] 0.7 mg/dL Normal 0.7-1.4 [facility] Comment on above: Performed By: #### C MP, TSH, LIPD #### [facility] [address] [place], [place] [id number] eGFRAA 136 mL/min/1.73m2 Normal >60 [facility] Special[facility] Comment on above: Performed By: #### C MP, TSH, LIPD #### [facility] [address] [place], [place] [id number] eGFRNAA 112 mL/min/1.73m2 Normal >60 [facility] Comment on above: Performed By: #### C MP, TSH, LIPD #### [facility] [address] [place], [place] [id number] Globulin (S) [Mass/Vol] 2.9 g/dL Normal 1.9-3.7 [facility] Comment on above: Performed By: #### C MP, TSH, LIPD #### [facility] [address] [place], [place] [id number] Glucose [Mass/Vol] 94 mg/dL Normal 65-99 [facility] [employer] Comment on above: Result Comment: For FASTING Glucose --- ADA reference ranges: Normal 65-99 mg/dl Prediabetes 100-125 Diabetes >/= 126 Performed By: #### C MP, TSH, LIPD #### [facility] [address] [place], [place] [id number] Potassium [Moles/Vol] 4.1 mmol/L Normal 3.5-5.5 [facility] [employer] Comment on above: Performed By: #### C MP, TSH, LIPD #### [facility] [address] [place], [place] [id number] Protein [Mass/Vol] 7.3 g/dL Normal 6.1-8.1 [facility] [employer] Comment on above: Performed By: #### C MP, TSH, LIPD #### [facility] [address] [place], [place] [id number] Sodium [Moles/Vol] 141 mmol/L Normal 135-146 [facility] Comment on above: Performed By: #### C MP, TSH, LIPD #### [facility] [address] [place], [place] [id number] Urea nitrogen [Mass/Vol] 11 mg/dL Normal 7-25 [facility] Comment on above: Performed By: #### C MP, TSH, LIPD #### [facility] [address] [place], [place] [id number] Lipid Panelon 03-28-2021 Cholesterol [Mass/Vol] 218 mg/dL High 125-200 [facility] Comment on above: Result Comment: Low risk < 200mg/dL Borderline risk 201-239 mg/dl High risk > or equal to 240 Performed By: #### C MP, TSH, LIPD #### [facility] [address] [place], [place] [id number] Cholesterol in HDL [Mass/Vol] 45 mg/dL Normal >40 [facility] Comment on above: Result Comment: High Cardiovascular Risk HDL <40 mg/dL Low Cardiovascular Risk HDL > or equal to 60 mg/dl Performed By: #### C MP, TSH, LIPD #### [facility] [address] [place], [place] [id number] Cholesterol in LDL [Mass/Vol] 153 mg/dL Normal [facility] Comment on above: Result Comment: LDL ATP III CLASSIFICATION LDL less than 100 mg/dl Optimal LDL 100-129 mg/dl Near or above optimal LDL 130-159 Borderline high LDL 160-189 High LDL greater than 189 mg/dl Very High Performed By: #### C MP, TSH, LIPD #### [facility] [address] [place], [place] [id number] Cholesterol in VLDL [Mass/Vol] 20 mg/dL Normal [facility] Comment on above: Performed By: #### C MP, TSH, LIPD #### [facility] [address] [place], [place] [id number] Cholesterol.total/ Cholesterol in HDL [Mass ratio] 5 {ratio} Normal [facility] Comment on above: Performed By: #### C MP, TSH, LIPD #### [facility] [address] [place], [place] [id number] Triglyceride [Mass/Vol] 100 mg/dL Normal 30-150 [facility] [employer] Comment on above: Result Comment: TRIG ATPIII CLASSIFICATIONS TRIG less than 150 mg/dl Normal TRIG 150-199 mg/dl Borderline High TRIG 200-500 mg/dl High TRIG greather than 500 mg/dl Very High Performed By: #### C MP, TSH, LIPD #### [facility] [address] [place], [place] [id number] Microalbumin (with Creat)on 03-28-2021 mALB <1.2 Low [facility] Comment on above: Result Comment: Unab le to calculate mALB/Crea ratio, mALB is <1.2 mg/dL mALB reference range not established. Performed By: #### m ALBC #### [facility] [address] [place], [place] [id number] UCREA 165 mg/dL Normal 39-259 [facility] Comment on above: Performed By: #### m ALBC #### [facility] [address] [place], [place] [id number] Prostatic Specific Antigen, Totalon 03-28-2021 TPSA 1.780 ng/mL Normal <4.000 [facility] Comment on above: Result Comment: PSA Test Method: ECLIA/Nahomy e 601 Performed By: #### P SA #### [facility] [address] [place], [place] [id number] Q - URINALYSIS,COMPLETEon Appearance (U) CLEAR Normal CLEAR [facility] [employer] Comment on above: Order Comment: [facility] performed at: [facility], [employer] [facility], [address] [place] [address], [address] [place] [address], [place], [address], Tobacco Sizer: Parth Suazo MD [facility] Collection Date/Time: [id number] [facility] Results Received Date/Time: [id number] [facility] Reported Date/Time: Performed By: #### 3 4F #### [facility] [address] [place] [address] BACTERIA NONE SEEN Normal NONE SEEN [facility] [employer] Comment on above: Order Comment: [facility] performed at: [employer], [employer] [facility], [address] , [address] [place] [address], [address] [place] [address], Tobacco Sizer: Parth Suazo MD [facility] Collection Date/Time: [facility] Results Received Date/Time: [facility] Reported Date/Time: Performed By: #### 3 4F #### [facility] [address] [place] [address] Bilirubin Ql (U) Negative Normal NEGATIVE [facility] [employer] Comment on above: Order Comment: [facility] performed at: [place], [employer] [facility], [address] , [address] [place] [address], [address] [place] [address], Tobacco Sizer: Parth Suazo MD [facility] Collection Date/Time: [facility] Results Received Date/Time: [facility] Reported Date/Time: Performed By: #### 3 4F #### [facility] [address] [place] [address] Color (U) YELLOW Normal YELLOW [facility] [employer] Comment on above: Order Comment: [facility] performed at: [place], [employer] [facility], [address] , [address] [place] [address], [address] [place] [address], Tobacco Sizer: Parth Suazo MD [facility] Collection Date/Time: [facility] Results Received Date/Time: [facility] Reported Date/Time: Performed By: #### 3 4F #### [facility] [address] [place] [address] Glucose Ql (U) Negative Normal NEGATIVE [facility] [employer] Comment on above: Order Comment: [facility] performed at: [place], [employer] [facility], [address] , [address] [place] [address], [address] [place] [address], Tobacco Sizer: Parth Suazo MD [facility] Date/Time: [facility] Results Received Date/Time: [facility] Reported Date/Time: Performed By: #### 3 4F #### [facility] [address] [place] [address] HYALINE CAST NONE SEEN Normal NONE SEEN [facility] [employer] Comment on above: Order Comment: [facility] performed at: [facility] [place], [employer] [facility], [address] [place] [address], [address] [place] [address], [address] [place] [address], Tobacco Sizer: Parth Suazo MD [facility] Date/Time: [facility] Results Received Date/Time: [facility] Reported Date/Time: Performed By: #### 3 4F #### [facility] [address] [place] [address] Ketones Ql (U) Negative Normal NEGATIVE [facility] [employer] Comment on above: Order Comment: [facility] performed at: [facility] [place], [employer] [facility], [address] [place] [address], [address] [place] [address], [address] [place] [address], Tobacco Sizer: Parth Suazo MD [facility] Date/Time: [facility] Results Received Date/Time: [facility] Reported Date/Time: Performed By: #### 3 4F #### [facility] [address] [place] [address] Leukocyte esterase Test strip Ql (U) TRACE Abnormal NEGATIVE [facility] [employer] Comment on above: Order Comment: [facility] performed at: [facility] [place], [employer] [facility], [address] [place] [address], [address] [place] [address], [address] [place] [address], Tobacco Sizer: Parth Suazo MD [facility] Date/Time: [facility] Results Received Date/Time: [facility] Reported Date/Time: Performed By: #### 3 4F #### [facility] [address] [place] [address] Nitrite Ql (U) Negative Normal NEGATIVE [facility] [employer] Comment on above: Order Comment: [facility] performed at: [facility] [place], [employer] [facility], [address] [place] [address], [address] [place] [address], [address] [place] [address], Tobacco Sizer: Parth Suazo MD [facility] Date/Time: [facility] Results Received Date/Time: [facility] Reported Date/Time: Performed By: #### 3 4F #### [facility] [address] [place] [address] OCCULT BLOOD Negative Normal NEGATIVE [facility] [employer] Comment on above: Order Comment: [facility] performed at: [facility] [place], [employer] [facility], [address] [place] [address], [address] [place] [address], [address] [place] [address], Tobacco Sizer: Parth Suazo MD [facility] Collection Date/Time: [facility] Results Received Date/Time: [facility] Reported Date/Time: Performed By: #### 3 4F #### [facility] [address] [place] [address] pH (U) 7.0 [pH] Normal 5.0-8.0 [facility] [employer] Comment on above: Order Comment: [facility] performed at: [employer], [employer] [facility], [address] [place] [address], [address] [place] [address], [address] [place] [address], Tobacco Sizer: Parth Suazo MD [facility] Date/Time: [facility] Results Received Date/Time: [facility] Reported Date/Time: Performed By: #### 3 4F #### [facility] [address] [place] [address] Protein Ql (U) Negative Normal NEGATIVE [facility] [employer] Comment on above: Order Comment: [facility] performed at: [email or web address], [employer] [facility], [address] [place] [address], [address] [place] [address], [address] [place] [address], Tobacco Sizer: Parth Suazo MD [facility] Collection Date/Time: [facility] Results Received Date/Time: [facility] Reported Date/Time: Performed By: #### 3 4F #### [facility] [address] [place] [address] RBC 0-2 Normal < OR = 2 [facility] [employer] Comment on above: Order Comment: [facility] performed at: [employer], [employer] [facility], [address] [place] [address], [address] [place] [address], [address] [place] [address], Tobacco Sizer: Parth Suazo MD [facility] Date/Time: [facility] Results Received Date/Time: [facility] Reported Date/Time: Performed By: #### 3 4F #### [facility] [address] [place] [address] Specific gravity (U) [Rel density] 1.018 Normal 1.001-1.035 [facility] [employer] Comment on above: Order Comment: [facility] performed at: [place], [employer] [facility], [address] [place] [address], [address] [place] [address], [address] [place] [address], Tobacco Sizer: Parth Suazo MD [facility] Date/Time: [facility] Results Received Date/Time: [facility] Reported Date/Time: Performed By: #### 3 4F #### [facility] [address] [place] [address] SQUAMOUS EPITHELIAL CELLS 0-5 Normal < OR = 5 [facility] [employer] Comment on above: Order Comment: [facility] performed at: [place], [employer] [facility], [address] [place] [address], [address] [place] [address], [address] [place] [address], Tobacco Sizer: Parth Suazo MD [facility] Date/Time: [facility] Results Received Date/Time: [facility] Reported Date/Time: Performed By: #### 3 4F #### [facility] [address] [place] [address] WBC NONE SEEN Normal < OR = 5 [facility] [employer] Comment on above: Order Comment: [facility] performed at: [place], [employer] [facility], [address] [place] [address], [address] [place] [address], [address] [place] [address], Tobacco Sizer: Parth Suazo MD [facility] Date/Time: [facility] Results Received Date/Time: [facility] Reported Date/Time: Performed By: #### 3 4F #### [facility] [address] [place] [address] TSHon 03-28-2021 TSH 3.320 uIU/mL Normal 0.400-4.500 [facility] [employer] Comment on above: Performed By: #### C MP, TSH, LIPD #### [facility] [address] [place], [place] [id number] Telephone Encounteron 2020 [employer] Aut[employer] Interface Message Text Mr. Reyes called in and said that he spoke to his PCP about the blood thinners. He was told that he should stop taking them at least three days prior to his surgery. He did say that his doctor will also be faxing something over to our department. Thank you Normal [facility] Telephone Encounteron 2020 [employer] Authentication Interface Message Text Mr. Reyes called in again expressing concern about when he should discontinue the Eliquis. Thank you Normal [facility] Telephone Encounteron 2020 [employer] Authentication Interface Message Text Called patient to let him know we can move surgery date up to 03/22 at [facility]. Patient agreed to appointment and was scheduled. Normal [facility] [employer] Authentication Interface Message Text Mr. Ford called to check the date of his surgery. I relayed the date as April 02, 2021. Patient asks that if anything becomes available sooner, his surgery be moved up. Thank you Normal [facility] Progress Noteson 11-06-2020 [employer] Authentication Interface Message Text OTOLARYNGOLOGY HEAD AND NECK SURGERY CONSULT PATIENT NOTE CC: sleep disordered breathing Referred by: Moraima Toussaint MD HPI: 11/06/20 A 55-year-old gentleman with history of moderate obstructive sleep apnea. AHI of 26.2 on home sleep study from 07/11/2020 with an O2 yvonne of 85%. He is very symptomatic in regard to his untreated apnea as previously outlined. He is partially edentulous. He has small nonobstructive tonsils. ? A drug-induced sleep endoscopy was performed on 10/26/2020 to further explore for other treatment options with the following findings: ? The patient was tested in right lateral and supine position. ??? The patient is a very mild mouth breather. ??? Supine position had a slightly pronounced base of tongue obstruction compared to right lateral position. ??? Velopharynx and oropharynx presented with an approximately 75% anterior-posterior obstruction and there was excellent tissue response and lateralization during gentle jaw thrust. ??? The base of tongue and epiglottis were 75% to 100% obstructed in anterior to posterior obstruction. Also responding very well to gentle jaw thrust. 09/13/2020 This is a a 55 year old male who was diagnosed with TED years ago. Attempted to use Cpap for the last 6 months but could not tolerate it. The Cpap was choking him and he would get wrapped up in the cord. Tried using the full face mask. Does not remember what his setting was. ??? Hx: - Does not think that he snores, he used to because he used to have a sore throat when waking up - Denies awakening with headaches, daytime fatigue, anxiety, depression, decreased cognitive ability, or memory issues - Feels refreshed in the morning but does not dream - Has some high blood pressure but well controlled with medication - Has no difficulties falling asleep but does have issues with difficulties staying asleep, he wakes up every day at 3 am but is able to go back to sleep - Is a non-smoker and denies nasal congestion Last Sleep Study: [facility], 07/11/20 AHI (AASM): 26.2 Almost all obstructions Spent 50% of study in supine position O2 yvonne: 85% Sleep position: lateral occasional back previous sleep surgeries: no other sleep disorders such as insomnia, narcolepsy, or cataplexy: no tried oral appliance: no Bruxism: no Cardiac comorbidities (heart failure etc.): no Previous Cardiac tests (echo?): 07/05/20 ECHO done at [facility] (under Media tab): Mild concentric left ventricular hypertrophy Ejection fraction: 60-65% Trivial valvular aortic stenosis Mild aortic regurgitation Trace mitral regurgitation Trace tricuspid regurgitation Questionnaires: Ronan sleep scale score: 3 FOSQ-10: 38 HADS: D- 2, A- 2 ROS: A complete 10 point review of systems was obtained and was negative other than what is stated in the history of present illness. PMH: Past Medical History: Diagnosis Date * Acquired hypothyroidism 12/18/2016 * History of blood clots * Hypertension * TED (obstructive sleep apnea) 09/13/2020 PSH: Past Surgical History: Procedure Laterality Date * ANKLE SURGERY Right no hardware; x2 * BRAIN TUMOR EXCISION r/t acoustic neuroma per pt * BRONCHOSCOPY, FLEXIBLE, DRUG INDUCED SLEEP ENDOSCOPY (DISE) N/A 10/26/2020 Procedure: BRONCHOSCOPY, FLEXIBLE, DRUG INDUCED SLEEP ENDOSCOPY (DISE); Surgeon: Nandini Billingsley MD; Location: [facility]; Service: Otolaryngology * CHOLECYSTECTOMY * NECK SURGERY x2 with hardware Medications: Current Outpatient Medications on File Prior to Visit Medication Sig Dispense Refill * amLODIPine (NORVASC) 5 MG tablet TAKE 1 TABLET BY MOUTH ONCE DAILY FOR 90 DAYS * levothyroxine (SYNTHROID) 100 MCG tablet Take 100 mcg by mouth. * Eliquis 5 MG tablet No current facility-administered medications on file prior to visit. Allergies: No Known Allergies SH: Social History Tobacco Use * Smoking status: Never Smoker * Smokeless tobacco: Never Used Substance Use Topics * Alcohol use: Not Currently * Drug use: Not Currently FH: No family history on file. Physical Exam Vitals Recorded in This Encounter No data found in the last 1 encounters. BMI: Data Unavailable Neck circumference: 16 inches Gen: WD/WN/WM in NAD, overweight body habitus. Resp: Breathing comfortably on room air, no stridor, symmetrical chest expansion CV: No clubbing/cyanosis/edema in hands, warm Skin: W AND D, no lesions Neuro: AAOx3 Voice: clear and strong. Eyes: Sclera anicteric. No evidence of nystagmus. Right Ear: Pinna and periauricular areas normal. EAC full of dark brown, obstructing cerumen. Unable to visualize TM. Left Ear: Pinna and periauricular areas normal. EAC clear. TM pearly proctor, no perforation, erythema. Nose: No deformity externally. Mucosa moist. No rhinorrhea, bleeding. Deviated nasal septum to the left. OC/PHARYNX: Mucous membranes moist, no lesions. Friedma (more content not included)... Normal The [employer] [facility] Anesthesia Attestationon Extract Wringer Authentication Interface Message Text Anesthesia Attestation ATTESTATION OF INFORMED CONSENT FOR ANESTHESIA Anesthesia options were discussed with the patient and/or legal sales representative education courses. The risks, benefits and alternatives were reviewed. Questions regarding anesthesia were answered. Patient and/or legal sales representative education courses knows such anesthetics and procedures may be performed by Resident physicians, Certified Anesthesiologist Assistants, or Certified Nurse Anesthetists under the supervision of a physician. The patient /or the patient's legal sales representative education courses agree with the plan for anesthesia. Normal The [employer] Anesthesia Postprocedure Ayala villafana 10-26-2020 Extract Wringer Authentication Interface Message Text Anesthesia Postoperative Assessment: Vital Signs (most recent): BP 150/92 Pulse 69 Temp 36.3 ???C (97.3 ???F) (Temporal) Resp 17 Ht 5' 8 (1.727 m) Wt 203 lb (92.1 kg) SpO2 97% BMI 30.87 kg/m??? Anesthesia Post Evaluation Patient location during evaluation: PACU Patient participation: complete - patient participated Level of consciousness: awake and alert Pain score: 1 Pain management: adequate Airway patency: patent Cardiovascular status: hemodynamically stable and stable Respiratory status: acceptable and Patient breathing comfortably on room air Hydration status: normal PONV: No nausea/vomiting reported I was personally responsible for performing the postop evaluation. ANESTHESIA COMPLICATIONS: No complications documented. Normal The [employer] [facility]26[facility]2020 Extract [employer]ringer Authentication Interface Message Text Patient taken to PACU. Patient was drowsy, comfortable and stable on arrival. Anesthesia Transfer of Care Note Past Medical History: Past Medical History: Diagnosis Date * Acquired hypothyroidism 12/18/2016 * History of blood clots * Hypertension * TED (obstructive sleep apnea) 09/13/2020 Sleep Apnea/Positive STOP-BANG: Yes Problem List: Patient Active Problem List: Acquired hypothyroidism [E03.9] Fatigue [R53.83] TED (obstructive sleep apnea) [G47.33] Past Surgical History: Review of patient's past surgical history indicates: NECK SURGERY x2 with hardware ANKLE SURGERY no hardware; x2 BRAIN TUMOR EXCISION r/t acoustic neuroma per pt CHOLECYSTECTOMY Allergies: Patient has no known allergies. Basic Operating Room Facts: Surgeon(s): Nandini Billingsley MD Anesthesiologist: Harris Iglesias DO FUNERAL DIRECTOR/EMBALMER/OWNER: Jerri Muhammad APRN-IRWIN BRONCHOSCOPY, FLEXIBLE, DRUG INDUCED SLEEP ENDOSCOPY (DISE) (N/A ) Intraoperative Events: No acute event ASA: 3 EBL: Not documented Urine Not documented Lactated Ringers and NaCl 0.9%: Fluid Totals (Filter: LR and NaCl 0.9% Medications Shown) Medication Calculated Total Lactated Ringers 300 mL / 1 bag Cell Saver: Not documented Blood Volume Values: Blood Products None MTP Blood: MTP PRBC: Not documented MTP FFP: Not documented MTP PLT: Not documented MTP Cryo: Not documented MTP Whole Blood: Not documented Current Vasoactive Medications: {Vasoactive Medications: None Lines, Drains, Airways Peripheral IV Access: 10/26/20658 22 gauge Left;Posterior Hand (Active) Site Assessment WNL;Dressing intact 10/26/20658 Infusion Status Port #1 Infusing 10/26/20658 Airway Adjunct: Nasal Cannula (Active) Airway Insertion Details * No LDAs found * All non-working IVs have been removed: N/A Laboratory Data: CBC (last 3 years, up to 5 values) None Basic Metabolic Panel None Basic Metabolic Panel None No results found for: INR No result for BNP LFT's (last 3 years, up to 5 values) None Arterial Blood Gases None Hand off Completed: Yes 1. The patient was identified. 2. Pertinent medical history was relayed. 3. A brief discussion was had about any pertinent surgical/ procedural issues. 4. Intraoperative/ anesthetic management issue and concerns were discussed. 5. Plans for the early post-operative period relayed. 6. An opportunity for questions and acknowledgment of understanding of the report was received. Jerri Muhammad APRN-IRWIN Normal The [employer] [facility] Blood Attestationon 10-27-19 [employer] Authentication Interface Message Text Blood Attestation ATTESTATION OF INFORMED CONSENT FOR BLOOD The transfusion of blood and/or blood components were discussed with the patient and/or legal sales representative education courses. The risks, benefits and alternatives were reviewed. Questions regarding blood transfusions were answered. The patient /or the patient's legal sales representative education courses agree with the plan for transfusion of blood and/or blood components. Normal The [employer] [facility] Brief Operative Noteon 10-26 Extract [employer] Authentication Interface Message Text Brief Operative Note PHE OR 1 Ritu Reyes 55 year old male Surgical Contact Serial Number: [id number] Preoperative Diagnosis: TED (obstructive sleep apnea) [G47.33] Postoperative Diagnosis: * TED (obstructive sleep apnea) [G47.33] Procedures: Surgical CPTs Procedures * Bronchoscopy, Rigid/Flex, W/Wo Fluoro Guid; W/Wo Cell Washing (Sep Proc) No data filed Surgeon(s): Surgeon(s): Nandini Billingsley MD Staff: Sled Maker Nurse: Zara Stanton RN Physician Dispatcher Radio: Karli Mcdowell PA-C Labor Utilization Superintendent: Adarsh Cherry MD Anesthesia: Consult Anesthesiologist: Harris Iglesias DO FUNERAL DIRECTOR/EMBALMER/OWNER: Jerri Muhammad APRN-FUNERAL DIRECTOR/EMBALMER/OWNER Specimen(s): * No specimens in log * Estimated Blood Loss: n/a Lines/Drains: Peripheral IV Access: 10/26/20658 22 gauge Left;Posterior Hand (Active) Site Assessment WNL;Dressing intact 10/26/20658 Infusion Status Port #1 Infusing 10/26/20658 Temporarily Retained Foreign Object: No Findings: Normal Significant base of tongue obstruction, good tissue response to jaw thrust Complications: None Status at end of surgery: Stable Activity: Ad Rosalind Surgical wound class: No wound. Patient Class: Outpatient Surgery. Is this a patient scheduled as an outpatient that needs to be admitted as an inpatient? No Dr. Billingsley was present in the OR for the critical portion of the procedure and procedure sign-out. Signed by Karli Mcdowell PA-C 10/26/2020 7:53 AM Normal [facility] OP Noteon 10-26-2020 Extract [employer] Authentication Interface Message Text Name: RITU REYES MR#: [id number] ENC#: [id number] Date of Procedure: [facility]26/2020 [facility] [facility] [id number], [place] [address]Ehoqglsco Number #: [id number]: [id number] of Surgery: 1Room Number: Service: SURG OPERATIVE REPORT '2 ' ATTENDING SURGEON: Nandini Billingsley MD FIRST SURGEON: Karli Bernal MD PREOPERATIVE DIAGNOSIS: Obstructive sleep apnea. POSTOPERATIVE DIAGNOSIS: Obstructive sleep apnea. PROCEDURE: Drug-induced sleep endoscopy. ANESTHESIA: Propofol induced sedation. INDICATIONS: A 55-year-old gentleman with history of moderate obstructive sleep apnea. AHI of 26.2 on home sleep study from 07/11/2020 with an O2 yvonne of 85%. He is very symptomatic in regard to his untreated apnea as previously outlined. He is partially edentulous. He has small nonobstructive tonsils. A drug-induced sleep endoscopy was performed on 10/26/2020 to further explore for other treatment options with the following findings: ??? The patient was tested in right lateral and supine position. ??? The patient is a very mild mouth breather. ??? Supine position had a slightly pronounced base of tongue obstruction compared to right lateral position. ??? Velopharynx and oropharynx presented with an approximately 75% anterior-posterior obstruction and there was excellent tissue response and lateralization during gentle jaw thrust. ??? The base of tongue and epiglottis were 75% to 100% obstructed in anterior to posterior obstruction. Also responding very well to gentle jaw thrust. RECOMMENDATION: This patient has a predominant base of tongue obstruction and is considered to be a good candidate for hypoglossal nerve stimulation, which I recommend. DESCRIPTION OF PROCEDURE: After the patient was sedated appropriately with propofol, I examined the upper airway with findings as described above. Vocal cord appeared normal. Subglottis and trachea were not obstructed. The patient was then wheeled back to recovery. MD PRANAY Rivera/Christiane/ Dict: 10/26/2020 08:24:24 TRANS: 10/26/2020 08:36:21 JOB: [id number] DictJob#: [id number] Normal The [employer] [facility] Anesthesia Preprocedure Eval uationon 10-25-2020 [employer] Authentication Interface Message Text ASA: 3 No history of anesthetic complications PSE status: Had PSE PSE note and nursing documentation reviewed NPO status: >8 hours Review of Systems (Full ROS completed in PSE) Pulmonary (+) sleep apnea, Dental ROS (+) teeth problems missing and broken, Endo (+) hypothyroidism, obesity Neuro/Psych Cardiovascular (+) hypertension, Surgical risk: intermediate; Cardiac condition: no apparent GI/Hepatic/Renal Heme/Other (+) DVT, anticoagulation therapy, Other ROS: Multiple neck surgeries Brain tumor surgery Acquired hypothyroidism TED (obstructive sleep apnea) Hypertension History of blood clots Physical Exam Airway Mallampati: II TM distance: Adequate Micrognathia: Not present Jaw opening: Adequate Dental PE (+) missing teeth Pulmonary - pulmonary exam normal Comment: Chest clear to auscultation bilaterally Cardiovascular - cardiovascular exam normal Comment: RRR with S1S2; no murmurs, gallops, or rubs Neuro - neurological exam normal Comment: Awake, alert, oriented, No motor deficits and sensation grossly intact Plan Anesthesia plan: MAC (NC) Medications may include (but not limited to): anxiolytics, narcotic analgesics and IV hypnotics Pain management: May include (but not limited to): anxiolytics and narcotic analgesics Anesthesia risks / alternatives discussed pre-op Questions answered / anesthesia plan accepted Past medical history, surgical history, allergies, and medications reviewed. Pertinent laboratory tests, EKG, imaging, and consults reviewed. I have reviewed the entire pre-surgical evaluation telephone history and/ or history and physical, and I have personally seen and evaluated the patient, repeating meng portions of the history and physical examination. Normal The [facility] [employer] [facility] PSE Call H AND Raul Extract Wringer Authentication Interface Message Text Telephone History Ritu Reyes, [id number] 10/17/2020 Patient was identified by name and date of . 55 year old 5'11 205 lbs Date of Surgery: 10/26 Surgeon: Karrie Type of Surgery: BRONCHOSCOPY, FLEXIBLE, DRUG INDUCED SLEEP ENDOSCOPY (DISE HISTORY OF PRESENT ILLNESS: telephone history for the upcoming surgery at [facility], [address] [place], enter through the west entrance doors. STOP-BANG Row Name Nurse Visit from 10/17/2020 in [facility] Pre Surgical Evaluation History of sleep apnea? Yes [facility], [facility], 07/11/20 AHI (AASM): 26.2 Almost all obstructions Spent 50% of study in supine position O2 yvonne: 85% EXERCISE CAPACITY: 4-10 mets ALLERGIES: Patient has no known allergies. PREVIOUS ANESTHETIC EXPERIENCES AND INTUBATION HISTORY: No previous anesthetic complication FAMILY HISTORY OF ANESTHETIC COMPLICATIONS: No PAST MEDICAL HISTORY: Past Medical History: Diagnosis Date * Acquired hypothyroidism 12/18/2016 * History of blood clots * Hypertension * TED (obstructive sleep apnea) 09/13/2020 PROBLEM LIST: Patient Active Problem List: Acquired hypothyroidism [E03.9] Fatigue [R53.83] TED (obstructive sleep apnea) [G47.33] REVIEW OF SYSTEMS: Eyes/Ears: Eye Glasses, deaf in right ear, and Snoring Teeth Missing Teeth Pulmonary: TED Denies SOB, wheezes, fever, chills, increased sputum, or general malaise. Cardiovascular: HTN and History of Echocardiogram Denies: CP, SOB, palpitations, dizziness, or syncope. Gastrointestinal: S/p cholecystectomy Renal/Genitourinary: Negative Musculoskeletal: Limited Neck Movement, S/p neck surgery x 3 with hardware, Right ankle surgery x 2 Endocrine: Thyroid disease Hematologic: Anti-Coagulated and History of DVT Neurologic: S/p brain tumor excision Psychiatric: Negative Gynecologic:N/A Constitutional:Negative Skin: Negative CBC (last 3 years, up to 5 values) None Basic Metabolic Panel None LFT's (last 3 years, up to 5 values) None Lipids (last 3 years, up to 5 values) None PT/PTT/INR (last 3 years, up to 5 values) None No results found for: HBA1C Last troponin series: No results found for: TROPONIN8 No results found for: TROPONIN4 No results found for: TROPONIN 07/05/20 ECHO done at [facility] (under Media tab): Mild concentric left ventricular hypertrophy Ejection fraction: 60-65% Trivial valvular aortic stenosis Mild aortic regurgitation Trace mitral regurgitation Trace tricuspid regurgitation PAST SURGICAL HISTORY: Past Surgical History: Procedure Laterality Date * ANKLE SURGERY * BRAIN TUMOR EXCISION * NECK SURGERY SOCIAL HISTORY: Social History Socioeconomic History * Marital status: Single Spouse name: Not on file * Number of children: Not on file * Years of education: Not on file * Highest education level: Not on file Tobacco Use * Smoking status: Never Smoker * Smokeless tobacco: Never Used Substance and Sexual Activity * Alcohol use: Not Currently * Drug use: Not Currently Social Determinants of Health Financial Resource Strain: * Difficulty of Paying Living Expenses: Food Insecurity: * Worried About Running Out of Food in the Last Year: * Ran Out of Food in the Last Year: Transportation Needs: * Lack of Transportation (Medical): * Lack of Transportation (Non-Medical): Physical Activity: * Days of Exercise per Week: * Minutes of Exercise per Session: Stress: * Feeling of Stress : Social Connections: * Frequency of Communication with Friends and Family: * Frequency of Social Gatherings with Friends and Family: * Attends Zoroastrianism Services: * Active Member of Clubs or Organizations: * Attends Club or Organization Meetings: * Marital Status: Intimate Partner Violence: * Fear of Current or Ex-Partner: * Emotionally Abused: * Physically Abused: * Sexually Abused: CURRENT MEDICATION LIST: Current Outpatient Medications Medication Sig Dispense Refill * amLODIPine (NORVASC) 5 MG tablet TAKE 1 TABLET BY MOUTH ONCE DAILY FOR 90 DAYS * levothyroxine (SYNTHROID) 100 MCG tablet Take 100 mcg by mouth. * Eliquis 5 MG tablet No current facility-administered medications for this visit. CURRENT MEDICATIONS: Aspirin: No NSAIDS: No Other Antiplatelet Medication: No Anticoagulants: Yes, continue per Dr. Billingsley guidelines for this procedure Steroids: No PATIENT MEDICATION INSTRUCTIONS: On the morning of your surgery please take only the following medications, with a small sip of water: * amLODIPine (NORVASC) 5 MG tablet * levothyroxine (SYNTHROID) 100 MCG tablet * Eliquis 5 MG tablet DAY OF SURGERY NOTES: ??? No solid food after midnight, the day before surgery. Per anesthesia's fasting protocol: you may have clear liquids only, the morning of your surgery. You MUST stop drinking clear liquids 3 hours before your scheduled surgery time. ??? The patient has diagnosed TED, no CPAP. Patrici (more content not included)... Normal [facility] [employer] [facility] Progress Noteson 09-13-2020 [employer] Authentication Interface Message Text OTOLARYNGOLOGY HEAD AND NECK SURGERY CONSULT PATIENT NOTE CC: sleep disordered breathing Referred by: Moraima Toussaint MD HPI: This is a a 55 year old male who was diagnosed with TED years ago. Attempted to use Cpap for the last 6 months but could not tolerate it. The Cpap was choking him and he would get wrapped up in the cord. Tried using the full face mask. Does not remember what his setting was. Hx: - Does not think that he snores, he used to because he used to have a sore throat when waking up - Denies awakening with headaches, daytime fatigue, anxiety, depression, decreased cognitive ability, or memory issues - Feels refreshed in the morning but does not dream - Has some high blood pressure but well controlled with medication - Has no difficulties falling asleep but does have issues with difficulties staying asleep, he wakes up every day at 3 am but is able to go back to sleep - Is a non-smoker and denies nasal congestion Last Sleep Study: [facility], 07/11/20 AHI (AASM): 26.2 Almost all obstructions Spent 50% of study in supine position O2 yvonne: 85% Sleep position: lateral occasional back previous sleep surgeries: no other sleep disorders such as insomnia, narcolepsy, or cataplexy: no tried oral appliance: no Bruxism: no Cardiac comorbidities (heart failure etc.): no Previous Cardiac tests (echo?): 07/05/20 ECHO done at [facility] (under Media tab): Mild concentric left ventricular hypertrophy Ejection fraction: 60-65% Trivial valvular aortic stenosis Mild aortic regurgitation Trace mitral regurgitation Trace tricuspid regurgitation Questionnaires: Ronan sleep scale score: 3 FOSQ-10: 38 HADS: D- 2, A- 2 ROS: A complete 10 point review of systems was obtained and was negative other than what is stated in the history of present illness. PMH: Past Medical History: Diagnosis Date * Acquired hypothyroidism 12/18/2016 * TED (obstructive sleep apnea) 09/13/2020 PSH: No past surgical history on file. Medications: Current Outpatient Medications on File Prior to Visit Medication Sig Dispense Refill * amLODIPine (NORVASC) 5 MG tablet TAKE 1 TABLET BY MOUTH ONCE DAILY FOR 90 DAYS * levothyroxine (SYNTHROID) 100 MCG tablet Take 100 mcg by mouth. * Eliquis 5 MG tablet No current facility-administered medications on file prior to visit. Allergies: No Known Allergies SH: Social History Tobacco Use * Smoking status: Never Smoker * Smokeless tobacco: Never Used Substance Use Topics * Alcohol use: Not on file * Drug use: Not on file FH: No family history on file. Physical Exam Vitals Recorded in This Encounter 09/13/2020 0854 BP: 134/74 Pulse: 73 Resp: 18 Temp: 97.6 ???F (36.4 ???C) Temp src: Temporal Weight: 203 lb 9.6 oz (92.4 kg) Height: 5' 8 (1.727 m) Pain Score: 0 BMI: 30.96 Neck circumference: 16 inches Gen: WD/WN/WM in NAD, overweight body habitus. Resp: Breathing comfortably on room air, no stridor, symmetrical chest expansion CV: No clubbing/cyanosis/edema in hands, warm Skin: W AND D, no lesions Neuro: AAOx3 Voice: clear and strong. Eyes: Sclera anicteric. No evidence of nystagmus. Right Ear: Pinna and periauricular areas normal. EAC full of dark brown, obstructing cerumen. Unable to visualize TM. Left Ear: Pinna and periauricular areas normal. EAC clear. TM pearly proctor, no perforation, erythema. Nose: No deformity externally. Mucosa moist. No rhinorrhea, bleeding. Deviated nasal septum to the left. OC/PHARYNX: Mucous membranes moist, no lesions. Thomas Class 3. Poor dentition and mostly edentulous. Bite Class 1. Geographic tongue freely movable, no lesions. No retrognathia. Slight medialization of lateral pharyngeal side torres. No erythema or exudates. Tonsils 1+. Neck: Supple, No masses or lymphadenopathy bilaterally. No thyromegaly. Parotid glands symmetrical, without tenderness or masses. No tenderness with palpation of temporalis, masseters, TMJs, or anterior strap muscles. Psych: Appropriate to circumstances, Mood: euthymic ############################ ############################ ################### Procedure: Flexible transnasal video(strobo-)laryngoscopy Indication: The procedure was performed to assess either of the followin. Diagnosis of symptomatic disorders involving the voice, swallowing, and upper aero digestive tract, including TED 2. Preoperative evaluation of vocal cord function for a patient who is undergoing surgery where the laryngeal recurrent or vagus nerve is a risk for injury 3. Further evaluation of abnormalities of the upper aero digestive tract as discovered by other modalities (e.g. imaging, endoscopy) Description: Following topical anesthesia of the patient's nasal cavity with a mixture of lidocaine and phenylepherine, a flexible fiberoptic laryngostroboscope was advanced into the nasal cavity, nasopharynx, oropharynx, and finally larynx / hypoph (more content not included)... Normal [facility] [facility] Extract Wringer Authentication Interface Message Text Patient in exam room, vital signs taken, ready for MD exam. Normal The [employer] [facility] WATERPROOFING MIXER polysom portableon 07-17 WATERPROOFING MIXER polysom [facility] [place] [address] Sleep Lab Report Signed Patient: Ritu Reyes MR#: [id number] : 1965 Acct:[id number] Age/Sex: 55 / M ADM Date: 07/11/20 Loc: Room: Type: [facility] Attending Dr: Moraima Toussaint MD Ordering Provider: Moraima Toussaint MD Date of Service: 07/11/20 Copies to: MD Seth Vega MD Home sleep study was done on this patient with suspected diagnosis of obstructive sleep apnea. PROCEDURE: A home sleep study was performed utilizing the usual montage with continuous monitoring of multiple parameters including actigraphy, body position, oxygen saturations, heart rate, snoring by a microphone, airflow monitoring as well as effort measured by impedance plethysmography. Scoring criteria for apneas used at least 90% decrease in airflow from baseline and a duration of 10 seconds or more. Hypopneas were scored using a drop in airflow 30% to 90% from baseline, minimum of 10 seconds duration, and decrease in oxygen saturation of 4% at least following that. Recording time study was initiated at 10 p.m. and ended at 4:59 a.m. with a total duration of nearly 7 hours. Data integrity showed no significant issues, and overall integrity was excellent. RESPIRATORY PARAMETERS: During the study, patient had 158 apneas, 157 obstructive and 1 central, in addition to 21 hypopneas, with an overall apnea-hypopnea index of 26.2 per hour. Lowest oxygen saturation was 85% with an average oxygen saturation of 92.6% for the whole night. The patient spent nearly 50% of the recording time in the supine position. OVERALL IMPRESSION: This study is consistent with moderate obstructive sleep apnea associated with moderate hypoxia. RECOMMENDATIONS: Followup evaluation and titration of CPAP would be ideal and recommended, given the severity of sleep-disordered breathing. Alternatively, automated CPAP and close followup to ensure control and improvement is also a possibility. Transcribed By: MANNY 07/18/20 1106 Dictated By: Moraima Toussaint MD 07/17/20 1511 Signed By: 07/19/20 0756 [facility] MRI INTERNAL AUDITORY CANAL WITH AND WITHOUT CONTRASTon 12-25-2017 MRI INTERNAL AUDITORY CANAL WITH AND WITHOUT CONTRAST EXAM: MRI INTERNAL AUDITORY CANAL WITH AND WITHOUT CONTRAST, 12/24/2017 11:14AMCOMPARISON: No previous studies available for comparison.CLINICAL INDICATION: 52 years Male Vestibular schwannoma; RELEVANT CLINICAL HISTORY: D33.3:Vestibular schwannoma. Outside Order;MRIbrain w/wo contrast with IAC protocol;3T Magnet;Vestibular schwannoma;;TECHNIQUE: A series of sagittal, axial and coronal multisequence images of thehead are obtained both before and after intravenous administration ofcontrast. Study includes dedicated evaluation of the internal auditory canals,with pre-and postcontrast thin section axial and coronal T1-weighted, axialthin section T2 3D SPACE, and axial thin section 3D VIBE images obtainedthrough the level of the IACs. Study was performed at 3 [address].CONTRAST:gadoterate Meglumine (DOTAREM) 5 MMOL/10ML injection 3-60 mL; Route ofAdministration: Intravenous; Dose: 19 mL.FINDINGS: Postsurgical changes from prior right translabyrinthine mastoidectomy with fatpacking material noted in the resection bed. No recurrent mass lesion orabnormal enhancement identified in the region of the right cerebellopontineangle.The left cerebellopontine angle is unremarkable. Left 7th and 8th nervecomplexes are unremarkable with no foci of abnormal enhancement. Left oticcapsule structures are unremarkable. Trace fluid in the left mastoid.Few scattered foci of hyperintense T2/FLAIR signal in the periventricular andsubcortical white matter without mass effect or restricted diffusion likelyrepresent chronic small vessel ischemic disease. Minimal mucosal thickening ofthe ethmoid air cells and frontal sinus.Heterogeneous sluggish flow within right sigmoid sinus and right jugular bulbwithout occlusion.Partial visualization of postoperative changes in the cervical spine fromprior anterior cervical discectomy and fusion with associated loss of signalon several of the localizer images. IMPRESSION:Postsurgical changes from prior right trans labyrinthine mastoidectomy with noevidence of recurrent mass lesion or abnormal enhancement in the rightcerebellopontine angle. I personally viewed and interpreted these images and I have reviewed andapproved this report. Normal [facility] *CRE/GFR POC DEVICEon 2017 *POC SAMPLE TYPE Venous Normal [facility] Creatinine mass conc 0.89 mg/dL Normal 0.70-1.30 [facility] GFR/1.73 sq M predicted among non-blacks MDRD vol rate/area (S/P/Bld) mL/min/{1.73_m2} Normal >60 [facility] MRI CERVICAL SPINE W WO CONT Ernestine 11-10-2017 MRI CERVICAL SPINE W WO CONTRAST MRI of the cervical spine with contrast.History: Cervical spondylosis with myelopathy. Neck pain. History of prior cervical spine surgery in 1999 [id number]: Multiplanar multisequence MRI of the cervical spine was performed without and with contrast.Comparison: None availableFindings:No cervical cord signal abnormality is identified. Postsurgical changes of anterior spinal fusion spanning the C2-3 through C4-5 levels. No pathologic enhancement.No aggressive bone marrow signal abnormality. There is straightening of the cervical lordosis. There appears to be osseous fusion at C3-4, C4-5. Disc desiccation is present at C5-6 and C6-7, with mild intervertebral disc space loss and degenerative endplate marrow changes.C2-C3 through C3-C4: No significant disc bulge, spinal canal or neuroforaminal stenosis.C4-C5: No significant disc bulge. Mild facet arthropathy, greater on the right. Mild right neuroforaminal narrowing. No spinal canal stenosis.C5-C6: Small disc bulge, and moderate bilateral uncovertebral hypertrophy results in moderate to severe right and severe left neuroforaminal stenosis and mild spinal canal stenosis.C6-C7: Small disc bulge, moderate uncovertebral hypertrophy, and mild facet arthropathy results in mild spinal canal stenosis and moderate right and mild left neuroforaminal stenosis.C7-T1: No significant disc bulge, spinal canal or neuroforaminal stenosis.The visualized thyroid gland demonstrates diffuse signal heterogeneity without discrete thyroid nodule.IMPRESSION: 1. Disc bulge with uncovertebral hypertrophy at C5-C6 results in moderate to right and severe left neuroforaminal stenosis and mild spinal canal stenosis.2. Disc bulge with uncovertebral hypertrophy and facet arthropathy at C6-C7 results in mild spinal canal stenosis, moderate right and mild left neuroforaminal stenosis.3. Post surgical changes at the C2-3 through C4-C5 levels without pathologic enhancement.4. Diffuse heterogeneous signal of the thyroid gland without discrete nodule. Thyroid ultrasound could be of benefit to further evaluate if clinically indicatedInterpreted by:Seth Butts, DOSigned by:Seth Butts, DO11/10/18Final result Normal [facility] Vital Signs Date Time Vital Sign Value Performing Clinician Facility 03-12-2023 10:40-0500 Body height 172.7 cm Shashi Arenas MD Work Phone: [facility] 03-12-2023 10:40-0500 Body temperature 98.8 [degF] Shashi Arenas MD Work Phone: [facility] 03-12-2023 10:40-0500 Body weight 95.25 kg Shashi Arenas MD Work Phone: [facility] 03-12-2023 10:40-0500 Diastolic blood pressure 72 mm[Hg] Shashi Arenas MD Work Phone: [facility] 03-12-2023 10:40-0500 Heart rate 77 /min Shashi Arenas MD Work Phone: [facility] 03-12-2023 10:40-0500 Systolic blood pressure 111 mm[Hg] Shashi Arenas MD Work Phone: [facility] 02-03-2023 08:27-0400 Diastolic blood pressure 82 mm[Hg] Mary Elizalde [facility] 02-03-2023 08:27-0400 Mean blood pressure 101 mm[Hg] Mary Elizalde [facility] 02-03-2023 08:27-0400 Systolic blood pressure 138 mm[Hg] Mary Garciametz [facility] 02-03-2023 08:23-0400 Blood Pressure Location Mary Garciametz [facility] 02-03-2023 08:23-0400 Body temperature 97.7 [degF] Mary Elizalde [facility] 02-03-2023 08:23-0400 Diastolic blood pressure 81 mm[Hg] Marylizbeth GarciaFide [facility] 02-03-2023 08:23-0400 Heart rate 59 /min Mary Fide [facility] 02-03-2023 08:23-0400 Systolic blood pressure 143 mm[Hg] Marylizbeth GarciaFide [facility] 01-22-2023 14:05-0400 Diastolic blood pressure 88 mm[Hg] Perez Sarmini [facility] 01-22-2023 14:05-0400 Heart rate 61 /min Perez Sarmini [facility] 01-22-2023 14:05-0400 Mean blood pressure 102 mm[Hg] Perez Sarmini [facility] 01-22-2023 14:05-0400 Respiratory rate 20 /min Perez Sarmini [facility] 01-22-2023 14:05-0400 SaO2% (BldA) [Mass fraction] 97 % Perez Sarmini [facility] 01-22-2023 14:05-0400 Systolic blood pressure 131 mm[Hg] Perez Sarmini [facility] 01-22-2023 13:55-0400 Diastolic blood pressure 83 mm[Hg] Perez Sarmini [facility] 01-22-2023 13:55-0400 Heart rate 57 /min Perez Sarmini [facility] 01-22-2023 13:55-0400 Mean blood pressure 92 mm[Hg] Perez Sarmini [facility] 01-22-2023 13:55-0400 Respiratory rate 13 /min Perez Sarmini [facility] 01-22-2023 13:55-0400 SaO2% (BldA) [Mass fraction] 98 % Perez Sarmini [facility] 01-22-2023 13:55-0400 Systolic blood pressure 110 mm[Hg] Perez Sarmini [facility] 01-22-2023 13:45-0400 Diastolic blood pressure 78 mm[Hg] Perez Sarmini [facility] 01-22-2023 13:45-0400 Heart rate 65 /min Perez Sarmini [facility] 01-22-2023 13:45-0400 Mean blood pressure 88 mm[Hg] Perez Sarmini [facility] 01-22-2023 13:45-0400 Respiratory rate 65 /min Perez Sarmini [facility] 01-22-2023 13:45-0400 SaO2% (BldA) [Mass fraction] 100 % Perez Sarmini [facility] 01-22-2023 13:45-0400 Systolic blood pressure 107 mm[Hg] Perez Sarmini [facility] 01-22-2023 13:25-0400 Respiratory rate 17 /min Perez Sarmini [facility] 01-22-2023 13:20-0400 Respiratory rate 17 /min Perez Sarmini [facility] 01-22-2023 13:15-0400 Respiratory rate 17 /min Chris Abarca [facility] 01-22-2023 12:19-0400 Blood Pressure Location Chris Abarca [facility] 01-22-2023 12:19-0400 Body temperature 98.24 [degF] Chris Abarca [facility] 05-29-2022 13:30-0500 Body height 175.3 cm Nandini Kang MD Work Phone: [facility] 05-29-2022 13:30-0500 Body weight 90.72 kg Nandini Kang MD Work Phone: [facility] 08-21-2021 10:15-0400 Body height 170.18 cm Adarsh Love Other [facility] Other 08-21-2021 10:15-0400 Body mass index (BMI) [Ratio] 32.1 kg/m2 Adarsh Love Other [facility] Other 08-21-2021 10:15-0400 Body temperature 98.2 [degF] Adarsh Love Other [facility] Other 08-21-2021 10:15-0400 Body weight 92.99 kg Adarsh Love Other [facility] Other 08-21-2021 10:15-0400 Diastolic blood pressure 86 mm[Hg] Adarsh Love Other [facility] Other 08-21-2021 10:15-0400 SaO2% (BldA) [Mass fraction] 99 % Adarsh Love Other [facility] Other 08-21-2021 10:15-0400 Systolic blood pressure 140 mm[Hg] Adarsh Love Other [facility] Other 07-10-2021 09:30-0400 Body height 170.18 cm Adarsh Love Other [facility] Other 07-10-2021 09:30-0400 Body mass index (BMI) [Ratio] 31.95 kg/m2 Adarsh Ivan Other [facility] Other 07-10-2021 09:30-0400 Body temperature 96.6 [degF] Adarsh Ivan Other [facility] Other 07-10-2021 09:30-0400 Body weight 92.53 kg Adarsh Love Other [facility] Other 07-10-2021 09:30-0400 Diastolic blood pressure 82 mm[Hg] Adarsh Love Other [facility] Other 07-10-2021 09:30-0400 SaO2% (BldA) [Mass fraction] 100 % Adarsh Love Other [facility] Other 07-10-2021 09:30-0400 Systolic blood pressure 152 mm[Hg] Adarsh Love Other [facility] Other Encounters Encounter Date Encounter Type Care Provider Facility Start: 03-12-2023 End: 03-12-2023 ambulatory SHASHI ARENAS Facility:[facility] Start: 03-12-2023 End: 03-12-2023 Patient encounter procedure Shashi Arenas MD Work Phone: Gastroenterology Comment on above: Sessile colonic poly p (Primary Dx); Anemia, unspecified type Start: 03-10-2023 End: 03-11-2023 ambulatory [facility] Start: 03-05-2023 Telephone encounter Miguel Arenas MD Work Phone: Gastroenterology Comment on above: Appointment Start: 02-17-2023 End: 02-18-2023 ambulatory Stephanie Olmos MD Facility:[facility] Start: 02-10-2023 End: 02-11-2023 ambulatory Stephanie Olmos MD Facility:[facility] Start: 02-04-2023 End: 02-05-2023 ambulatory Mary Elizalde Facility:[facility] Start: 02-04-2023 End: 02-04-2023 Patient encounter procedure Mary Elizalde [facility] Start: 02-03-2023 End: 02-04-2023 ambulatory Mary Elizalde [facility] Start: 02-03-2023 End: 02-03-2023 Patient encounter procedure Mary Elizalde [facility] Start: 01-22-2023 End: 01-22-2023 ambulatory Chris Eduardomini Facility:[facility] Start: 01-22-2023 End: 01-22-2023 Patient encounter procedure Perez Talal Sarmini [facility] Start: 01-08-2023 End: 01-09-2023 ambulatory Perez Talal Sarmini Facility:[facility] Start: 12-30-2022 ambulatory Mary Elizalde Facility :[facility] Start: 11-24-2022 Letter encounter Brigida Obregon TIMBER MANAGEMENT PROFESSOR-[employer] DATA ARCHITECT Work Phone: [facility] Start: 09-05-[address] SETH TURCIOS Facility :[facility] Start: 08-22-2022 Letter encounter Brigida Obregon TIMBER MANAGEMENT PROFESSOR-SAP DATA ARCHITECT Work Phone: [facility] Start: 08-20-2022 End: 08-21-[address] ADARSH MCGEE Facility:[facility] Start: 07-29-2022 End: 07-30-[address] ERIK TREVIÑO . Facility:[facility] Start: 07-29-2022 Encounter for preprocedural laboratory examination ANDI BELLE [facility] Start: 07-24-2022 End: 07-25-2022 [facility] Start: 07-24-2022 End: 07-25-2022 Encounter for preprocedural laboratory examination ANDI BELLE Facility:[facility] Start: 06-25-2022 End: 06-26-[address] LORETO MARTINS Facility:[facility] Start: 06-20-2022 End: 06-21-[address] ADARSH MCGEE Facility:[facility] Start: 06-18-2022 End: 06-19-[address] ADARSH MCGEE Facility:[facility] Start: 05-30-2022 End: 05-31-[address] ADARSH MCGEE Facility:[facility] Start: 05-29-2022 End: 05-29-2022 ambulatory NANDINI KANG Facility:[facility] Start: 05-29-2022 End: 05-29-2022 Patient encounter procedure Nandini Kang MD Work Phone: Orthopaedics Comment on above: 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 (Primary Dx) Start: 05-24-2022 Letter encounter Brigida Obregon TIMBER MANAGEMENT PROFESSOR-SAP DATA ARCHITECT [facility] Start: 03-27-2022 End: 03-28-[address] LORETO MARTINS Facility:[facility] Start: 02-07-2022 End: 02-07-2022 ambulatory ANDI BELLE Facility:[facility] Start: 02-04-2022 End: 02-05-2022 ambulatory ANDI Ridley [facility] Facility:[facility] Start: 02-01-2022 Encounter for preprocedural cardiovascular examination [facility] Start: 02-01-2022 Encounter for preprocedural laboratory examination PETER D HIGHLANDER [facility] Start: 01-29-2022 End: 01-30-2022 ambulatory ANDI BELLE Facility:[facility] Start: 01-29-2022 End: 01-30-2022 Encounter for preprocedural cardiovascular examination ANDI BELLE Facility:[facility] Start: 01-16-2022 End: 01-17-2022 ambulatory ANDI BELLE Facility:[facility] Start: 11-28-2021 End: 11-29-2021 ambulatory ANDI Ridley [facility] Facility:[facility] Start: 10-24-2021 End: 10-25-2021 ambulatory ANDI Ridley [facility] Facility:[facility] Start: 09-24-2021 End: 11-06-2021 ambulatory MARBELLA MARTIN . Facility:[facility] Start: 09-19-2021 End: 09-20-2021 ambulatory ANDI BELLE Facility:[facility] Start: 08-29-2021 End: 08-30-2021 ambulatory ANDI Ridley [facility] Facility:[facility] Start: 08-21-2021 End: 08-21-2021 ambulatory Adarsh Love Other [facility] Other Start: 08-21-2021 Office outpatient vi sit 25 minutes Adarsh Ivan [facility] Start: 07-10-2021 End: 07-10-2021 ambulatory Adarsh Love Other [facility] Other Start: 07-10-2021 Office outpatient vi sit 40 minutes Adarsh Ivan [facility] Start: 06-08-2021 End: 06-08-2021 ambulatory UNKNOWN PROVIDER [facility] Start: 05-31-2021 ambulatory UNKNOWN PROVIDER Facili ty:[facility] Start: 05-31-2021 End: 06-01-2021 Evaluation and management of inpatient NANDINI BILLINGSLEY Facility:[facility] Start: 05-14-2021 End: 05-18-2021 ambulatory UNKNOWN PROVIDER [facility] Start: 03-13-2021 ambulatory UNKNOWN PROVIDER Facili ty:[facility] Start: 11-06-2020 End: 11-06-2020 ambulatory UNKNOWN PROVIDER [facility] Start: 10-26-2020 End: 10-26-2020 ambulatory NANDINI BILLINGSLEY Facility[facility] Start: 10-17-2020 ambulatory NANDINI BILLINGSLEY Fa cility:[facility] Start: 09-13-2020 End: 09-13-2020 ambulatory UNKNOWN PROVIDER Facility:[facility] Start: 07-06-2020 End: 07-06-2020 Patient encounter procedure Seth Turcios -[facility] Start: 07-05-2020 End: 07-05-2020 Patient encounter procedure Seth Turcios -[facility] Start: 07-04-2020 End: 07-04-2020 Patient encounter procedure Seth Turcios -[facility] Start: 06-06-2020 End: 06-06-2020 Patient encounter procedure Seth Turcios -MRI [address] Start: 05-17-2020 End: 05-17-2020 Patient encounter procedure Seth Turcios -Respiratory Therapy Start: 07-23-2018 Patient encounter procedure Mourhaf Traboulssi Facility:[id number] Start: 02-04-2018 Patient encounter procedure MOURHAF TRABOULSSI Facility:[id number] Start: 02-04-2018 Patient encounter Facil [id number] Start: 12-24-2017 Patient encounter RICO SANTAMARIA [facility] Start: 11-10-2017 Patient encounter JEOVANY CISNEROS [facility] Start: 07-02-2017 Patient encounter procedure NANDINI D BEWilliam Facility:[facility] [employer] Procedures Date Procedure Procedure Detail Performing Clinician Start: 01-22-2023 Colonoscopy Chris Eduardomini Start: 01-22-2023 Esophagogastroduodenoscopy Chris Hill indouglas Start: 07-06-2020 Plain chest X-ray Seth Turcios Start: 07-06-2020 Pulmonary perfusion study Seth Turcios Start: 07-04-2020 X-ray of right ankle Seth Turcios Start: 06-06-2020 MRI of head Seth Turcios Start: 02-22-2019 Follow-up visit Start: 11-10-2017 Mri spinal canal cervical w/o & w/contr matrl JEOVANY CISNEROS Plan of Treatment Date Care Activity Detail Author Start: 03-28-2026 Lipid panel [facility] Start: 02-17-2025 PROSTATE CANCER SCREENING DISCUSSION PROSTATE CANCER SCREENING DISCUSSION [facility] Start: 03-12-2023 End: 06-11-2023 CBC W Auto Differential panel - Blood CBC + DIFF Lab Routine Anemia, unspecified type Expected: 03/12/2023, Expires: 06/11/2023 [facility] Work Phone: Comment on above: Expected: 03/12/2023 , Expires: 06/11/2023 Start: 03-12-2023 End: 06-11-2023 Ferritin [Mass/volume] in Serum or Plasma FERRITIN BLD Lab Routine Anemia, unspecified type Expected: 03/12/2023, Expires: 06/11/2023 [facility] Work Phone: Comment on above: Expected: 03/12/2023 , Expires: 06/11/2023 Start: 03-12-2023 End: 06-11-2023 Iron and Iron binding capacity panel - Serum or Plasma IRON + TIBC Lab Routine Anemia, unspecified type Expected: 03/12/2023, Expires: 06/11/2023 [facility] Work Phone: Comment on above: Expected: 03/12/2023 , Expires: 06/11/2023 Start: 03-12-2023 End: 06-11-2023 TYPE AND SCREEN,30 DAY TYPE AND SCREEN,30 DAY Blood Bank Routine Anemia, unspecified type Expected: 03/12/2023, Expires: 06/11/2023 [facility] Work Phone: Comment on above: Expected: 03/12/2023 , Expires: 06/11/2023 Start: 2023 RSV Vaccine (1 - 1-d ose 60+ series) RSV Vaccine (1 - 1-dose 60+ series) [facility] Start: 01-12-2023 Influenza vaccination Influenza Vacc ine (#1) [facility] Start: 12-13-2022 Influenza vaccination Influenza Vacc ine (#1) [facility] Start: 04-14-2022 DEPRESSION ASSESSMENT DEPRESSION ASS ESSMENT [facility] Start: 03-15-2022 DIABETES SCREEN DIABETES SCREEN [facility] Start: 03-15-2022 Diabetes Screening Diabetes Screenin g [facility] Start: 01-12-2022 Influenza vaccination Influ[facility] Vacc ine [facility] Start: 12-13-2021 Influenza vaccination INFLUENZA (#1) [facility] Start: 2013 Measurement of occul t blood in single stool specimen FIT [facility] Start: 2013 Screening for malign ant neoplasm of colon CRC Screening [facility] Start: 2013 Shingles (RZV) Vacci ne (1 of 2) Shingles (RZV) Vaccine (1 of 2) [facility] Start: 2013 SHINGRIX VACCINE (1 of 2) SHINGRIX VACCINE (1 of 2) [facility] Start: 02-21-2008 COLOGUARD (FIT-DNA) COLOGUARD (FIT-D NA) [facility] Start: 02-21-2008 Colonoscopy COLONOSCOPY [facility] Start: 02-21-2008 COLORECTAL CANCER SCREENING COLORECTAL CANCER SCREENING [facility] Start: 02-21-[address] COLONOGRAPHY [facility] Start: 02-21-2008 FECAL OCCULT BLOOD FECAL OCCULT BLOO D [facility] Start: 02-21-2008 Screening for malign ant neoplasm [facility] colon [facility] Start: 02-21-2008 SIGMOIDOSCOPY SIGMOIDOSCOPY [facility] Start: 1998 Lipid 1996 panel - Serum or Plasma Lipid Screening [facility] Start: 1998 LIPID SCREEN LIPID SCREEN [facility] Start: 1982 Urine microalbumin profile [facility] Start: 1981 ANNUAL PCP TEAM LEATHER CASE FINISHER DEMARCUS DISEASE VISIT ANNUAL PCP TEAM CHRONIC DISEASE VISIT [facility] Start: 1981 Hepatitis C screening Hepatitis C [facility] Start: 1981 HEPATITIS C SCREENING HEPATITIS C SC REENING [facility] Start: 1981 HIV SCREENING HIV SCREENING [facility] Start: 1981 Tetanus + diphtheria + acellular pertussis vaccine (product) Tdap Booster [facility] Start: 1978 HIV screening HIV Test [facility] Start: 1963 COVID-19 Vaccine (#1) COVID-19 Vacci ne (#1) [facility] Start: 1963 Screening for malign ant neoplasm of colon Colonoscopy [facility] Start: 1963 Thyroid stimulating hormone measurement TSH [facility] End: 03-12-2024 Colonoscopy COLONOSCOPY (THERAPEUTIC) Endoscopy Routine Sessile colonic polyp 1 Occurrences starting 03/12/2023 until 03/12/2024 [facility] Work Phone: Comment on above: 1 Occurrences starti ng 03/12/2023 until [facility] Immunization Date Immunization Notes Care Provider Fa cility NEGATED: Highlighted row has not occurred!01-08-2023 SARS-CoV-2 mRNA (tozinameran 5y-11y) vaccine Perezkhai Abarca [facility] NEGATED: Highlighted row has not occurred!01-08-2023 influenza virus vaccine, unspecified formulation Perez Jaycemini [facility] Payers Date Payer Category Payer Unknown [id number] 2017 Unknown [id number] 1963 Unknown [id number] 2.16. 840.1.262735.3.579.2.356 1963 Unknown [id number] 2.16.8 40.1.440167.3.579.2.355 1963 Unknown [id number] 2.16.8 40.1.475426.3.579.2.355 1963 Unknown [id number] 2.16.840. 1.677921.3.579.2.1068 1963 Unknown [id number] 2.16. 840.1.143774.3.579.2.732 1963 Unknown [id number] 2.16. 840.1.732598.3.579.2.732 1963 Unknown [id number] 2.16. 840.1.674942.3.579.2.732 1963 Unknown [id number] 2.16. 840.1.034351.3.579.2.732 1963 Unknown [id number] 2.16. 840.1.605402.3.579.2.732 1963 Unknown [id number] 2.16. 840.1.855577.3.579.2.732 1963 Unknown [id number] 2.16. 840.1.381339.3.579.2.732 1963 Unknown [id number] 2.16. 840.1.707607.3.579.2.732 1963 Unknown [id number] 2.16. 840.1.256606.3.579.2.732 1963 Unknown [id number] 2.16.84 0.1.959391.3.579.2.593 1963 Unknown [id number] 2.16.84 0.1.941990.3.579.2.593 1963 Unknown [id number] 2.16.84 0.1.286921.3.579.2.593 1963 Unknown [id number] 2.16.84 0.1.512963.3.579.2.593 1963 Unknown [id number] 2.16.84 0.1.490781.3.579.2.593 1963 Unknown [id number] 2.16.84 0.1.166721.3.579.2.593 1963 Unknown [id number] 2.16.84 0.1.337314.3.579.2.593 1963 Unknown [id number] 2.16.84 0.1.247111.3.579.2.593 1963 Unknown [id number] 2.16.84 0.1.013698.3.579.2.593 1963 Unknown [id number] 2.16.84 0.1.393398.3.579.2.593 1963 Unknown [id number] 2.16.84 0.1.147908.3.579.2.593 1963 Unknown [id number] 2.16.84 0.1.581492.3.579.2.593 1963 Unknown [id number] 2.16.84 0.1.352374.3.579.2.593 1963 Unknown [id number] 2.16.84 0.1.690913.3.579.2.593 1963 Unknown [id number] 2.16.84 0.1.064422.3.579.2.593 1963 Unknown [id number] 2.16.84 0.1.121175.3.579.2.593 1963 Unknown [id number] 2.16.84 0.1.665276.3.579.2.593 1963 Unknown [id number] 2.16.84 0.1.697980.3.579.2.593 1963 Unknown [id number] 2.16.8 40.1.058638.3.579.2.727 1963 Unknown [id number] 2.16.8 40.1.181875.3.579.2.727 1963 Unknown [id number] 2.16.8 40.1.663734.3.579.2.727 1963 Unknown [id number] 2.16.8 40.1.961982.3.579.2.727 1963 Unknown [id number] 2.16.8 40.1.226840.3.579.2.727 1963 Unknown [id number] 2.16. 840.1.966845.3.579.2.196 1963 Unknown [id number] 2.16. 840.1.039015.3.579.2.196 1963 Unknown [id number] 2.16. 840.1.717375.3.579.2.196 1959 Unknown [id number] Self-pay Self Pay [id number] Unknown [id number] Social History Date Type Detail Facility Start: 05-04-2019 End: 05-29-2022 Tobacco smoking status NHIS Never smoked tobacco (finding) [facility] Start: 1965 Sex Assigned At Male F [facility] Start: 03-20-2020 End: 05-29-2022 Sex Assigned At [facility] Start: 09-13-2020 End: 05-29-2022 Tobacco use and exposure Smokeless tobacco non-user [facility] Start: 06-08-2021 Alcohol intake Ex-drinker (finding) [facility] Start: 1965 Sex Assigned At Not on file [facility] Start: 05-29-2022 End: 03-12-2023 Alcohol intake Current drinker of alcohol (finding) [facility] Start: 12-18-2016 Alcohol Comment quit drinking 2009 - now occ [facility] Tobacco smoking status Never [facility] Start: 03-20-2020 End: 05-29-2022 History of Social function [facility] Medical Equipment Procedure Code Equipment Code Equipment Origin al Text Equipment Identifier Dates FDA Start: 12-29-2017 BONE 5MM DUO FDA Start: 12-29-2017 BONE 5MM DUO FDA Start: 12-29-2017 BONE 5MM DUO FDA Start: 12-29-2017 BONE 5MM DUO FDA Start: 12-29-2017 BONE 5MM DUO FDA Start: 12-29-2017 BONE 5MM DUO FDA Start: 12-29-2017 BONE 5MM DUO FDA Start: 12-29-2017 BONE 5MM DUO FDA Start: 12-29-2017 BONE 5MM DUO FDA Start: 12-29-2017 BONE 5MM DUO FDA Start: 12-29-2017 BONE 5MM DUO FDA Start: 12-29-2017 BONE 5MM DUO FDA Start: 12-29-2017 BONE 5MM DUO FDA Start: 12-29-2017 BONE 5MM DUO FDA Start: 12-29-2017 BONE 5MM DUO FDA Start: 12-29-2017 BONE 5MM DUO FDA Start: 12-29-2017 BONE 5MM DUO FDA Start: 12-29-2017 BONE 5MM DUO FDA Start: 12-29-2017 BONE 5MM DUO FDA Start: 12-29-2017 BONE 5MM DUO FDA Start: 12-29-2017 BONE 5MM DUO FDA Start: 12-29-2017 BONE 5MM DUO FDA Start: 12-29-2017 BONE 5MM DUO FDA Start: 12-29-2017 BONE 5MM DUO FDA Start: 12-29-2017 BONE 5MM DUO FDA Start: 12-29-2017 BONE 5MM DUO FDA Start: 12-29-2017 BONE 5MM DUO FDA Start: 12-29-2017 BONE 5MM DUO FDA Start: 12-29-2017 BONE 5MM DUO FDA Start: 12-29-2017 BONE 5MM DUO FDA Start: 12-29-2017 BONE 5MM DUO FDA Start: 12-29-2017 BONE 5MM DUO FDA Start: 12-29-2017 BONE 5MM DUO FDA Start: 12-29-2017 BONE 5MM DUO FDA Start: 12-29-2017 BONE 5MM DUO FDA Start: 12-29-2017 Generator_Mri Im p Pulse Ea1 3028 - [id number] Start: 05-31-2021 Lead Respiratory Sensing Ea1 4340 - [id number] Start: 05-31-2021 Goals Date Patient Goal Desired Activity /State Functional Status Date Assessment Result Facility 02-03-2023 Functional Status N/A [facility] 01-22-2023 Functional Status N/A [facility] Clinical Notes 10-26-2020 to 03-12-2023 Shashi Arenas MD - 03/12/2023 11:30 AM ESTTelephone Encounter - Do Barraza RN - 03/05/2023 4:37 PM ESTTelephone Encounter - Do Barraza RN - 03/05/2023 3:33 PM EST Note Date & Type Note Facility 03-12-2023 Note HNO ID: [id number] Author: Shashi Arenas MD Service: ? Author Type: Physician Type: Progress Notes Filed: 03/12/2023 12:14 PM Note Text: New Patient/Consult REASON FOR VISIT Ritu Reyes is a 58 year old male who is scheduled for a consult at the request of Dr. Chris Abarca CHIEF COMPLAINT ESD/EMR consult for colon polyp My final recommendations will be communicated back to the requesting physician by the way of the shared medical record, fax, or via [place] Mail. HISTORY OF PRESENT ILLNESS Notes going in for colonoscopy two months after noticing blood in the stool with red in the toilet water. Occasionally noted abdominal pain. No nausea or vomiting. Stable weight. Notes early satiety for the past few months. Notes some dysphagia for which he's scheduled for repeat EGD this coming Friday (prior showed Gipson's and empiric dilation was done with Parson 60 [place] for problems swallowing). Last colonoscopy was on 01/22 and showed a 3 cm sessile polyp in transverse colon now presenting for potential EMR here for removal. PERTINENT PRIOR DIAGNOSTIC TESTING Luminal: Colonoscopy 01/22/2023 EGD with Dilation 01/22/2023 Extra Luminal: No recent imaging to review Labs: Component Ref Range AND Units 1 mo ago Comments Glucose 65 - 139 mg/dL 83 Non-fasting reference interval BUN 7 - 25 mg/dL 12 Creatinine 0.70 - 1.30 mg/dL 0.80 EGFR > OR = 60 mL/min/1.73m2 102 BUN/CREATININE RATIO 6 - 22 (calc) SEE NOTE: Not Reported: BUN and Creatinine are within reference range. Sodium 135 - 146 mmol/L 137 Potassium, Bld 3.5 - 5.3 mmol/L 4.0 Chloride 98 - 110 mmol/L 103 Carbon Dioxide 20 - 32 mmol/L 28 Calcium 8.6 - 10.3 mg/dL 9.1 MEDICATIONS Current Outpatient Medications Medication Sig Dispense Refill amLODIPine (NORVASC) 10 mg tablet Take 10 mg by mouth every morning. omeprazole (PRILOSEC) 40 mg capsule Take 40 mg by mouth once daily. traMADol (ULTRAM) 50 mg tablet 1-2 tablets amLODIPine-Atorvastatin 5-10 mg per tablet Take 1 tablet by mouth once daily. aspirin 81 mg chewable tablet Take 81 mg by mouth once daily. levothyroxine (SYNTHROID) 75 mcg tablet Take 75 mcg by mouth daily before breakfast. triamterene-hydroCHLOROthiazide (DYAZIDE) 37.5-25 mg per capsule Take 1 capsule by mouth every morning. esomeprazole magnesium (NEXIUM) 40 mg packet Take 40 mg by mouth once daily. (Patient not taking: Reported on 03/12/2023) No current facility-administered medications for this visit. 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 Hypothyroidism, acquired 10/2016 Initial TSH 16 Left thyroid nodule 11/07/2016 NEGATIVE MEDICAL HISTORY PAST SURGICAL HISTORY PAST SURGICAL HISTORY Procedure Laterality Date GRAHAM W/O FACETEC FORAMOT/DSC 1/2 VRT SGM CRV Laminectomy, cervical LAMINECTOMY W/O FFD 1/2 VERT SEG LUMBAR 2016 [facility] PAST SURGICAL HISTORY OF 2014 Craniotomy right temporal SOCIAL HISTORY Social History Tobacco Use Smoking status: Never Smokeless tobacco: Never Substance Use Topics Alcohol use: Yes Comment: quit drinking 2009 - now occ Drug use: No FAMILY HISTORY FAMILY HISTORY Problem Relation Age of Onset Thyroid Mother Possible Cancer Maternal Aunt Metastatic Cancer Maternal Uncle No idea cancer GASTROINTESTINAL REVIEW OF SYSTEMS Difficulty swallowing / foods sticking in throat: Yes Heartburn: Yes Chest Pain: No Filling up quickly at meals: Yes Loss of appetite: Yes Nausea: No Vomiting: No Abdominal pain: Yes Bloody or black, bowel movements: Occasional blood on toilet paper and toilet Constipation: Occasional Diarrhea: Yes Vomiting blood: No Recent change in weight: No REVIEW OF OTHER SYSTEMS GENERAL: No weight loss, malaise or fevers PHYSICAL EXAMINATION BP 111/72 Pulse 77 Temp (Src) 98.8 (Temporal) Ht 5' 8 (1.73m) Wt 210 lb (95.3kg) BMI 31.94 kg/(m2). General appearance: cooperative, in no acute distress Lungs: Lungs clear to auscultation. No wheezing or ronchi. Heart: S1, S2 Normal Abdomen: Abdomen soft, non-tender, Bowel sounds normal, No masses, No organomegaly, and mild tenderness on palpation of epigastrium. Assessment IMPRESSION AND PLAN ASSESSMENT/PLAN: 1. Sessile colonic polyp - ICD9: 211.3, ICD10: K63.5 (primary diagnosis) - will schedule colonoscopy with EMR/ESD, RBAT discussed with patient - Type and Screen 2. Anemia, unspecified type - ICD9: 285.9, ICD10: D64.9 - continue healthy diet - Iron studies (TIBC, iron, ferritin) Emeterio Torres MD RTC in 3 months Scribe Attestation: By signing my name below, I,Do Barraza RN, attest that this documentation has been prepared under the direction and in the presence of Shashi Nance (more content not included)... [facility] 03-12-2023 History of Presen t illness Narrative Images from the original note were not included. New Patient/Consult REASON FOR VISIT Ritu Reyes is a 58 year old male who is scheduled for a consult at the request of Dr. Chris Abarca CHIEF COMPLAINT ESD/EMR consult for colon polyp My final recommendations will be communicated back to the requesting physician by the way of the shared medical record, fax, or via US Mail. HISTORY OF PRESENT ILLNESS Notes going in for colonoscopy two months after noticing blood in the stool with red in the toilet water. Occasionally noted abdominal pain. No nausea or vomiting. Stable weight. Notes early satiety for the past few months. Notes some dysphagia for which he's scheduled for repeat EGD this coming Friday (prior showed Gipson's and empiric dilation was done with Parson 60 [place] for problems swallowing). Last colonoscopy was on 01/22 and showed a 3 cm sessile polyp in transverse colon now presenting for potential EMR here for removal. PERTINENT PRIOR DIAGNOSTIC TESTING Luminal: Colonoscopy 01/22/2023 EGD with Dilation 01/22/2023 Extra Luminal: No recent imaging to review Labs: Component Ref Range & Units 1 mo ago Comments Glucose 65 - 139 mg/dL 83 Non-fasting reference interval BUN 7 - 25 mg/dL 12 Creatinine 0.70 - 1.30 mg/dL 0.80 EGFR > OR = 60 mL/min/1.73m2 102 BUN/CREATININE RATIO 6 - 22 (calc) SEE NOTE: Not Reported: BUN and Creatinine are within reference range. Sodium 135 - 146 mmol/L 137 Potassium, Bld 3.5 - 5.3 mmol/L 4.0 Chloride 98 - 110 mmol/L 103 Carbon Dioxide 20 - 32 mmol/L 28 Calcium 8.6 - 10.3 mg/dL 9.1 MEDICATIONS Current Outpatient Medications Medication Sig Dispense Refill amLODIPine (NORVASC) 10 mg tablet Take 10 mg by mouth every morning. omeprazole (PRILOSEC) 40 mg capsule Take 40 mg by mouth once daily. traMADol (ULTRAM) 50 mg tablet 1-2 tablets amLODIPine-Atorvastatin 5-10 mg per tablet Take 1 tablet by mouth once daily. aspirin 81 mg chewable tablet Take 81 mg by mouth once daily. levothyroxine (SYNTHROID) 75 mcg tablet Take 75 mcg by mouth daily before breakfast. triamterene-hydroCHLOROthiazide (DYAZIDE) 37.5-25 mg per capsule Take 1 capsule by mouth every morning. esomeprazole magnesium (NEXIUM) 40 mg packet Take 40 mg by mouth once daily. (Patient not taking: Reported on 03/12/2023) No current facility-administered medications for this visit. 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 Hypothyroidism, acquired 10/2016 Initial TSH 16 Left thyroid nodule 11/07/2016 NEGATIVE MEDICAL HISTORY PAST SURGICAL HISTORY PAST SURGICAL HISTORY Procedure Laterality Date GRAHAM W/O FACETEC FORAMOT/DSC 1/2 VRT SGM CRV Laminectomy, cervical LAMINECTOMY W/O FFD 1/2 VERT SEG LUMBAR 2016 Laser surgery center PAST SURGICAL HISTORY OF 2014 Craniotomy right temporal SOCIAL HISTORY Social History Tobacco Use Smoking status: Never Smokeless tobacco: Never Substance Use Topics Alcohol use: Yes Comment: quit drinking 2009 - now occ Drug use: No FAMILY HISTORY FAMILY HISTORY Problem Relation Age of Onset Thyroid Mother Possible Cancer Maternal Aunt Metastatic Cancer Maternal Uncle No idea cancer GASTROINTESTINAL REVIEW OF SYSTEMS Difficulty swallowing / foods sticking in throat: Yes Heartburn: Yes Chest Pain: No Filling up quickly at meals: Yes Loss of appetite: Yes Nausea: No Vomiting: No Abdominal pain: Yes Bloody or black, bowel movements: Occasional blood on toilet paper and toilet Constipation: Occasional Diarrhea: Yes Vomiting blood: No Recent change in weight: No REVIEW OF OTHER SYSTEMS GENERAL: No weight loss, malaise or fevers PHYSICAL EXAMINATION BP 111/72 Pulse 77 Temp (Src) 98.8 (Temporal) Ht 5' 8 (1.73m) Wt 210 lb (95.3kg) BMI 31.94 kg/(m^2). General appearance: cooperative, in no acute distress Lungs: Lungs clear to auscultation. No wheezing or ronchi. Heart: S1, S2 Normal Abdomen: Abdomen soft, non-tender, Bowel sounds normal, No masses, No organomegaly, and mild tenderness on palpation of epigastrium. Assessment IMPRESSION AND PLAN ASSESSMENT/PLAN: 1. Sessile colonic polyp - ICD9: 211.3, ICD10: K63.5 (primary diagnosis) - will schedule colonoscopy with EMR/ESD, RBAT discussed with patient - Type and Screen 2. Anemia, unspecified type - ICD9: 285.9, ICD10: D64.9 - continue healthy diet - Iron studies (TIBC, iron, ferritin) Emeterio Torres MD RTC in 3 months Scribe Attestation: By signing my name below, Do Gallego RN, attest that this documentation has been prepared under the direction and in the presence of Shashi Arenas. Electronically Signed: Do Barraza RN, Scribe. March 12, 2023 8:44 AM. Provider Attestation: Shashi Gallego MD personally performed the services described in this documentation. All medical record entries made by the scribe were at my direction and in my presence. I have reviewed the chart and discharge instructions (if applicable) and agree that the record reflects my personal performance and is accurate and complete. Electronically Signed: Shashi Arenas MD, March 12, 2023 12:14 PM Shashi Arenas MD March 10, 2023 12:49 PM documented in this encounter [facility] 03-05-2023 Miscellaneous Notes Patient accepted 03/12/23 appointment at 11:30 am. Directions and instructions given to patient. Patient communicated understanding and agreement with plan. HUNG Gilman, RN [employer] Recovery Worker [facility] Attempted to reach patient to set up appointment with Dr. Arenas for EMR consult. Possible date of 03/12 @ 11:30 am. Left voicemail message for patient to return call to office. HUNG Gilman, RN Tin Recovery Worker [facility] documented in this encounter [facility] 02-03-2023 Hospital Discharg e instructions Patient Education 02/03/2023 08:27:45 Colon Polyps Colon Polyps Colon polyps are tissue growths inside the colon, which is part of the large intestine. They are one of the types of polyps that can grow in the body. A polyp may be a round bump or a mushroom-shaped growth. You could have one polyp or more than one. Most colon polyps are noncancerous (benign). However, some colon polyps can become cancerous over time. Finding and removing the polyps early can help prevent this. What are the causes? The exact cause of colon polyps is not known. What increases the risk? The following factors may make you more likely to develop this condition: Having a family history of colorectal cancer or colon polyps. Being older than 45 years of age. Being younger than 45 years of age and having a significant family history of colorectal cancer or colon polyps or a genetic condition that puts you at higher risk of getting colon polyps. Having inflammatory bowel disease, such as ulcerative colitis or Crohn's disease. Having certain conditions passed from parent to child (hereditary conditions), such as: ?Familial adenomatous polyposis (FAP). ?Bullard syndrome. ?Turcot syndrome. ?Peutz Jeghers syndrome. ?MUTYH-associated polyposis (MAP). Being overweight. Certain lifestyle factors. These include smoking cigarettes, drinking too much alcohol, not getting enough exercise, and eating a diet that is high in fat and red meat and low in fiber. Having had childhood cancer that was treated with radiation of the abdomen. What are the signs or symptoms? Many times, there are no symptoms. If you have symptoms, they may include: Blood coming from the rectum during a bowel movement. Blood in the stool (feces). The blood may be bright red or very dark in color. Pain in the abdomen. A change in bowel habits, such as constipation or diarrhea. How is this diagnosed? This condition is diagnosed with a colonoscopy. This is a procedure in which a lighted, flexible scope is inserted into the opening between the buttocks (anus) and then passed into the colon to examine the area. Polyps are sometimes found when a colonoscopy is done as part of routine cancer screening tests. How is this treated? This condition is treated by removing any polyps that are found. Most polyps can be removed during a colonoscopy. Those polyps will then be tested for cancer. Additional treatment may be needed depending on the results of testing. Follow these instructions at home: Eating and drinking Eat foods that are high in fiber, such as fruits, vegetables, and whole grains. Eat foods that are high in calcium and vitamin D, such as milk, cheese, yogurt, eggs, liver, fish, and broccoli. Limit foods that are high in fat, such as fried foods and desserts. Limit the amount of red meat, precooked or cured meat, or other processed meat that you eat, such as hot dogs, sausages, mcgregor, or meat loaves. Limit sugary drinks. Lifestyle Maintain a healthy weight, or lose weight if recommended by your health care provider. Exercise every day or as told by your health care provider. Do not use any products that contain nicotine or tobacco, such as cigarettes, e-cigarettes, and chewing tobacco. If you need help quitting, ask your health care provider. Do not drink alcohol if: ?Your health care provider tells you not to drink. ?You are , may be , or are planning to become . If you drink alcohol: ?Limit how much you use to: ?0 1 drink a day for women. ?0 2 drinks a day for men. ?Know how much alcohol is in your drink. In the [place] one drink equals one 12 oz bottle of beer (355 mL), one 5 oz glass of wine (148 mL), or one 1 oz glass of hard liquor (44 mL). General instructions Take [id number] and prescription medicines only as told by your health care provider. Keep all follow-up visits. This is important. This includes having regularly scheduled colonoscopies. Talk to your health care provider about when you need a colonoscopy. Contact a health care provider if: You have new or worsening bleeding during a bowel movement. You have new or increased blood in your stool. You have a change in bowel habits. You lose weight for no known reason. Summary Colon polyps are tissue growths inside the colon, which is part of the large intestine. They are one type of polyp that can grow in the body. Most colon polyps are noncancerous (benign), but some can become cancerous over time. This condition is diagnosed with a colonoscopy. This condition is treated by removing any polyps that are found. Most polyps can be removed during a colonoscopy. This information is not intended to replace advice given to you by your health care provider. Make sure you discuss any questions you have with your health care provider. Document Revised: 07/19/2020 Document Reviewed: 07/19/2020 [employer] Patient Education 2022 [employer]. Follow Up Care 01/08/2023 09:26:55 With:Mary Elizalde CNP Address: When:3 months [facility] 01-23-2023 Note [id number] [facility] 01-22-2023 Hospital Discharg e instructions Patient Education 01/22/2023 14:07:12 Colonoscopy, Care After Surgery Salam (CUSTOM) Colonoscopy Care After Surgery Please read the instructions outlined below and refer to this sheet in the next few weeks. These discharge instructions provide you with general information on caring for yourself after you leave the hospital. Your doctor may also give you specific instructions. While your treatment has been planned according to the most current medical practices available, unavoidable complications occasionally occur. If you have any problems or questions after discharge, please call your doctor. ACTIVITY You may resume your regular activity, but move at a slower pace for the next 24 hours. Take frequent rest periods for the next 24 hours. Walking will help get rid of the air and reduce the bloated feeling in your abdomen (belly). No driving for 24 hours (because of the anesthesia (medicine) used during the test). You may shower. Do not sign any important legal documents or operate any machinery for 24 hours (because of the anesthesia used during the test). NUTRITION Drink plenty of fluids. You may resume your normal diet as instructed by your doctor. Begin with a light meal and progress to your normal diet. Heavy or fried foods are harder to digest and may make you feel nauseated (sick to your stomach). Avoid alcoholic beverages for 24 hours or as instructed. MEDICATIONS You may resume your normal medications unless your doctor tells you otherwise. WHAT YOU CAN EXPECT TODAY Some feelings of bloating in the abdomen. Passage of more gas than usual. Spotting of blood in your stool or on the toilet paper. FOLLOW-UP Your doctor will discuss the results of your test with you. SEEK IMMEDIATE MEDICAL ATTENTION IF: There is more than a spotting of blood in your stool. There is abdominal distention (your abdomen is swollen). There is vomiting. You have a temperature over 101.5 F. There is abdominal pain or discomfort that is severe or gets worse throughout the day. Follow Up Care 01/08/2023 09:30:11 With:Tevin ROBLES, Chris Pennington, [facility], [facility] Address: [facility] [address], [address] [phone] [phone] When: Unknown Comments:Office Will Call Date and Time of Follow-up Appt. [facility] 01-22-2023 Evaluation + Plan note Extrac rani from: Title:ANES Post General Author:Mikel Rossi DO Date:01/22/23 Plan Transfer/Discharge: Patient exhibiting no signs of N/V. Hydration status is adequate. Extracted from: Title:Flo Basic PRE Author:Finesse Rossi DO Date:01/22/23 Plan [place] [employer] (ASA) physical status classification: Class II. Anesthetic Preoperative Plan: Anesthesia General. Future Appointments Appointment Date:01/27/2023 08:45:00 AM Scheduled Provider:Chris Abarca MD Location:[facility] Appointment Type:[facility] Follow Up Future Scheduled Tests Laboratory* Calprotectin, Fecal 01/08/23 * O & P Exam, Routine 01/08/23 * Celiac Disease Comprehensive 01/08/23 * Clostridium Difficile PCR 01/08/23 * Enteric Panel by PCR 01/08/23 * CBC w/ Auto Diff 01/08/23 * Comprehensive Metabolic Panel 01/08/23 * C-Reactive Protein 01/08/23 [facility]05-10-2023 NotePROCEDURE: XR ANKLE RT MIN 3 VIEWS COMPARISON: 07/29/2022 HISTORY: Pain FINDINGS: BONES:Stable ankle fusion utilizing a lateral plate along the tibiotalar joint with multiple screws traversing the tibiotalar and subtalar joint. Dorsal plate and screws along the dorsal midfoot hindfoot. Remote resection distal fibula SOFT TISSUES:Moderate diffuse soft tissue swelling EFFUSION:Joint effusion OTHER: Negative. IMPRESSION: Stable postsurgical changes Electronically authenticated by: ADARSH MCGEE Date: 2022-08-21 07:23[facility]04-17-2023 NotePROCEDURE: XR ANKLE RT MIN 3 VIEWS DATE: 07/29/2022 12:54 PM CDT COMPARISONS: Reference is made to intraoperative radiographs done just prior to these postop ankle radiographs. CLINICAL INDICATION: Pain FINDINGS: Splint material now overlies the posterior ankle and the plantar aspect of the foot limiting some of the radiograph slightly.. These postop radiographs show postop changes of the midfoot and hindfoot which were present on preoperative radiographs. These postop radiographs also show oblique pins and fixation plate fusing the tibiotalar joint space. Tibiopatellar osseous structures are held in good position and alignment. The distal fibula has been resected. These postop radiographs show similar findings to the images that were done during surgery. IMPRESSION: Postop changes of the ankle, midfoot and hindfoot. Osseous structures are held in good position and alignment. . Electronically authenticated by: CANELO FRANCO Date: 2022-07-29 15:37[facility]04-17-2023 NotePROCEDURE: XR FOOT RT MIN 3 VIEWS DATE: 07/29/2022 12:54 PM CDT COMPARISONS: Reference is made to intraoperative radiographs done earlier in the day. CLINICAL INDICATION: Pain FINDINGS: There is postop radiograph is limited by overlying splint material which lies posterior to the ankle and plantar aspect of the foot.. The images show extensive midfoot and hindfoot postop changes which were present on 05/30/2022. The images also show extensive postop changes using the tibiotalar large joint space. This includes oblique pins and fixation plate across the joint space. It also includes resection of the distal tibial. Based on these radiographs, osseous structures are held in good position and alignment. IMPRESSION: Postoperative changes as discussed above. These postop changes are similar to the findings that were noted on the intraoperative radiographs done just prior to this exam.. Electronically authenticated by: CANELO FRANCO Date: 2022-07-29 15:35[facility]04-17-2023 NotePROCEDURE: XR ANKLE RT 2V DATE: 07/29/2022 10:13 AM CDT COMPARISONS: Comparison is made to images from 05/30/2022. Comparisons made to CT of the ankle done on 06/25/2022 CLINICAL INDICATION: Pain FINDINGS: 28 images are obtained during surgery area images show evidence of fusion of the tibia and talus are joint space. 3 oblique pins traverse the tibiotalar joint space. A lateral fixation plate is noted across the joint space. The distal fibula is resected. It is noted that there is hindfoot postop changes are also present on preop radiographs.. A total of 92.1 seconds of fluoroscopy time was utilized IMPRESSION: Tibiotalar fusion noted on these intraoperative radiographs. . Electronically authenticated by: CANELO FRANCO Date: 2022-07-29 15:29[facility]03-09-2023 NotePROCEDURE: XR ANKLE RT MIN 3 VIEWS, XR FOOT RT MIN 3 VIEWS COMPARISON: 07/04/2020 HISTORY: Pain of right ankle joint FINDINGS: BONES:No acute fracture or dislocation. Midfoot hindfoot fusion with a dorsal plate. Subtalar fusion. Lucency in the distal tibia from bone graft harvesting. Moderate to severe degenerative changes throughout with joint space narrowing and marginal osteophyte formation. Calcification of the tibiofibular syndesmosis SOFT TISSUES:Moderate diffuse soft tissue swelling EFFUSION:Ankle joint effusion OTHER: Negative. IMPRESSION: Stable degenerative and postsurgical changes Electronically authenticated by: ADARSH MCGEE Date: 2022-06-20 15:23[facility]03-09-2023 NotePROCEDURE: XR ANKLE RT MIN 3 VIEWS, XR FOOT RT MIN 3 VIEWS COMPARISON: 07/04/2020 HISTORY: Pain of right ankle joint FINDINGS: BONES:No acute fracture or dislocation. Midfoot hindfoot fusion with a dorsal plate. Subtalar fusion. Lucency in the distal tibia from bone graft harvesting. Moderate to severe degenerative changes throughout with joint space narrowing and marginal osteophyte formation. Calcification of the tibiofibular syndesmosis SOFT TISSUES:Moderate diffuse soft tissue swelling EFFUSION:Ankle joint effusion OTHER: Negative. IMPRESSION: Stable degenerative and postsurgical changes Electronically authenticated by: ADARSH MCGEE Date: 2022-06-20 15:23[facility]02-16-2023 NotePROCEDURE: XR FOOT RT MIN 3 VIEWS, XR ANKLE RT MIN 3 VIEWS COMPARISON: 03/27/2022 HISTORY: Pain in right foot FINDINGS: BONES:No acute fracture or dislocation. Permeative pattern of the bones suggests osteopenia, improved. Moderate to severe degenerative changes. Midfoot fusion with a dorsal plate and screws. Subtalar fusion with a cannulated screw. SOFT TISSUES:Moderate diffuse soft tissue swelling EFFUSION:None visible. OTHER: Negative. IMPRESSION: Stable postsurgical and degenerative changes Electronically authenticated by: ADARSH MCGEE Date: 2022-05-30 15:31[facility]02-16-2023 NotePROCEDURE: XR FOOT RT MIN 3 VIEWS, XR ANKLE RT MIN 3 VIEWS COMPARISON: 03/27/2022 HISTORY: Pain in right foot FINDINGS: BONES:No acute fracture or dislocation. Permeative pattern of the bones suggests osteopenia, improved. Moderate to severe degenerative changes. Midfoot fusion with a dorsal plate and screws. Subtalar fusion with a cannulated screw. SOFT TISSUES:Moderate diffuse soft tissue swelling EFFUSION:None visible. OTHER: Negative. IMPRESSION: Stable postsurgical and degenerative changes Electronically authenticated by: ADARSH MCGEE Date: 2022-05-30 15:31[facility]02-15-2023 NoteHNO ID: [id number] Author: Nandini Kang MD Service: ? Author Type: Physician Type: Progress Notes Filed: 05/29/2022 4:08 PM Note Text: May 29, 2022 HPI: Ritu Reyes is a 57 yo male with history of 5 prior surgeries to right foot and ankle starting 4 years ago. Sounds like PTT issues. Most recent surgery was 6 months ago. Has been told he needs TAA. Pain Descriptors: Duration: chronic Severity: moderate Quality: ache Location: foot, ankle Context: worse with activity and dependent position Modifying Factors: improved with rest and elevation Supporting Subjective Information Below: Estimated body mass index is 29.53 kg/m? as calculated from the following: Height as of this encounter: 175.3 cm (5' 9 ). Weight as of this encounter: 90.7 kg (200 lb). 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 Hypothyroidism, acquired 10/2016 Initial TSH 16 Left thyroid nodule 11/07/2016 NEGATIVE MEDICAL HISTORY Surgical History: PAST SURGICAL HISTORY Procedure Laterality Date GRAHAM W/O FACETEC FORAMOT/DSC 1/2 VRT SGM CRV Laminectomy, cervical LAMINECTOMY W/O FFD 1/2 VERT SEG LUMBAR 2016 [facility] PAST SURGICAL HISTORY OF 2014 Craniotomy right temporal Family History: FAMILY HISTORY Problem Relation Age of Onset Thyroid Mother Possible Cancer Maternal Aunt Metastatic Cancer Maternal Uncle No idea cancer Medications: Current Outpatient Medications Medication Sig amLODIPine-Atorvastatin 5-10 mg per tablet Take 1 tablet by mouth once daily. aspirin 81 mg chewable tablet Take 81 mg by mouth once daily. levothyroxine (SYNTHROID) 75 mcg tablet Take 75 mcg by mouth daily before breakfast. esomeprazole magnesium (NEXIUM) 40 mg packet Take 40 mg by mouth once daily. No current facility-administered medications for this visit. Allergies: Patient has no known allergies. Review Of Systems GENERAL:Negative for malaise, significant weight loss and fever HEENT:Negative for frequent or significant headaches, significant changes in vision or vision problems, significant ear problems or hearing loss, nasal discharge or nose bleeds and sore throat, difficulty swallowing, mouth lesions NECK:Negative for lumps, goiter, pain and significant neck swelling RESPIRATORY: Negative for cough, wheezing and shortness of breath CARDIOVASCULAR: Negative for chest pain, leg swelling and palpitations GASTROINTESTINAL: Negative for abdominal discomfort, blood in stools or black stools and change in bowel habits GENITOURINARY: Negative for dysuria, frequency and incontinence MUSCULOSKELETAL: Negative for joint pain or swelling, back pain, and muscle pain. NEUROLOGIC:Negative for focal numbness or weakness, headaches and dizziness. SKIN:Negative for lesions, rash, and itching. PSYCHIATRIC: Negative for sleep disturbance, mood disorder and recent psychosocial stressors. HEMATOLOGIC/LYMPHATIC/IMMUNOLOGIC:Negative for prolonged bleeding, bruising easily, and swollen nodes. ENDOCRINE: Negative for cold or heat intolerance, polyuria, polydipsia and goiter. Physical Exam: Basic physical examination reveals the patient to be in no acute distress. The patient is alert and oriented x 3 Mood and affect are appropriate. Head is atraumatic, normocephalic. Neck ROM grossly intact. Mucous membranes are moist. Eyes, ears, and nose are normal in appearance. Hearing is grossly intact. Breathing is unlabored with grossly normal chest motion. Limited Upper Extremity Exam: Shoulders with grossly intact ROM and strength, no obvious deformity. Elbows with grossly intact ROM and strength, no obvious deformity. Hand and wrist with grossly intact ROM and strength, no obvious deformity. Focused orthopaedic examination reveals the following: Skin intact without lesions. Healed incisions anteromedial foot and anterolateral Significant stiffness to foot and ankle Alignment intact Imaging: XR with retained midfoot hardware CT with fusion of midfoot and ST joints Joint space of ankle maintained on XR Mild degenerative changes to ankle on CT Severe bone grafting defect from distal tibia metaphysis 2cm from plafond Assessment and Plan: Right foot and ankle pain We reviewed his imaging and complaints I do not recommend TAA for him as his joint is still well maintained and his pain is significant in the foot as well I recommended her consider pursuing an Exo Sym brace as this would likely address his symptoms more completely Return to clinic: prn X-Ray's at next visit: No PCP: No primary care provider on file. No primary provider on file. FELLOW / RESIDENT: No fellow or resident assisted in this office visit. Nandini Kang [facility]02-15-2023 History of Present illness Narrative* Nandini Kang MD - 05/29/2022 1:46 PM EST May 29, 2022 HPI: Ritu Reyes is a 57 yo male with history of 5 prior surgeries to right foot and ankle starting 4 years ago. Sounds like PTT issues. Most recent surgery was 6 months ago. Has been told he needs TAA. Pain Descriptors: Duration: chronic Severity: moderate Quality: ache Location: foot, ankle Context: worse with activity and dependent position Modifying Factors: improved with rest and elevation Supporting Subjective Information Below: Estimated body mass index is 29.53 kg/m as calculated from the following: Height as of this encounter: 175.3 cm (5' 9 ). Weight as of this encounter: 90.7 kg (200 lb). 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 Hypothyroidism, acquired 10/2016 Initial TSH 16 Left thyroid nodule 11/07/2016 NEGATIVE MEDICAL HISTORY Surgical History: PAST SURGICAL HISTORY Procedure Laterality Date GRAHAM W/O FACETEC FORAMOT/DSC 1/2 VRT SGM CRV Laminectomy, cervical LAMINECTOMY W/O FFD 1/2 VERT SEG LUMBAR 2016 Laser surgery center PAST SURGICAL HISTORY OF 2014 Craniotomy right temporal Family History: FAMILY HISTORY Problem Relation Age of Onset Thyroid Mother Possible Cancer Maternal Aunt Metastatic Cancer Maternal Uncle No idea cancer Medications: Current Outpatient Medications Medication Sig amLODIPine-Atorvastatin 5-10 mg per tablet Take 1 tablet by mouth once daily. aspirin 81 mg chewable tablet Take 81 mg by mouth once daily. levothyroxine (SYNTHROID) 75 mcg tablet Take 75 mcg by mouth daily before breakfast. esomeprazole magnesium (NEXIUM) 40 mg packet Take 40 mg by mouth once daily. No current facility-administered medications for this visit. Allergies: Patient has no known allergies. Review Of Systems GENERAL:Negative for malaise, significant weight loss and fever HEENT:Negative for frequent or significant headaches, significant changes in vision or vision problems, significant ear problems or hearing loss, nasal discharge or nose bleeds and sore throat, difficulty swallowing, mouth lesions NECK:Negative for lumps, goiter, pain and significant neck swelling RESPIRATORY: Negative for cough, wheezing and shortness of breath CARDIOVASCULAR: Negative for chest pain, leg swelling and palpitations GASTROINTESTINAL: Negative for abdominal discomfort, blood in stools or black stools and change in bowel habits GENITOURINARY: Negative for dysuria, frequency and incontinence MUSCULOSKELETAL: Negative for joint pain or swelling, back pain, and muscle pain. NEUROLOGIC:Negative for focal numbness or weakness, headaches and dizziness. SKIN:Negative for lesions, rash, and itching. PSYCHIATRIC: Negative for sleep disturbance, mood disorder and recent psychosocial stressors. HEMATOLOGIC/LYMPHATIC/IMMUNOLOGIC:Negative for prolonged bleeding, bruising easily, and swollen nodes. ENDOCRINE: Negative for cold or heat intolerance, polyuria, polydipsia and goiter. Physical Exam: Basic physical examination reveals the patient to be in no acute distress. The patient is alert and oriented x 3 Mood and affect are appropriate. Head is atraumatic, normocephalic. Neck ROM grossly intact. Mucous membranes are moist. Eyes, ears, and nose are normal in appearance. Hearing is grossly intact. Breathing is unlabored with grossly normal chest motion. Limited Upper Extremity Exam: Shoulders with grossly intact ROM and strength, no obvious deformity. Elbows with grossly intact ROM and strength, no obvious deformity. Hand and wrist with grossly intact ROM and strength, no obvious deformity. Focused orthopaedic examination reveals the following: Skin intact without lesions. Healed incisions anteromedial foot and anterolateral Significant stiffness to foot and ankle Alignment intact Imaging: XR with retained midfoot hardware CT with fusion of midfoot and ST joints Joint space of ankle maintained on XR Mild degenerative changes to ankle on CT Severe bone grafting defect from distal tibia metaphysis 2cm from plafond Assessment and Plan: Right foot and ankle pain We reviewed his imaging and complaints I do not recommend TAA for him as his joint is still well maintained and his pain is significant inthe foot as well I recommended her consider pursuing an Exo Sym brace as this would likely address his symptoms morecompletely Return to clinic: prn X-Ray's at next visit: No PCP: No primary care provider on file. No primary provider on file. FELLOW / RESIDENT: No fellow or resident assisted in this office visit. Nandini Kang MD [facility] NotePROCEDURE: XR FOOT RT MIN 3 VIEWS HISTORY: Pain in right foot COMPARISON: XR foot right 02/07/2022 FINDINGS: BONES:Posterior talocalcaneal fusion via single lag screw. Dorsal plate and screw securing the lateral midfoot. 2 remnant legs from prior bone sorin within the medial midfoot. Marked degenerative changes and likely osseous fusion of the midfoot. Moderate degenerative changes the first metatarsophalangeal joint. Prior bone harvesting from distal tibia. SOFT TISSUES:Mild soft tissue swelling. EFFUSION:None visible. OTHER: Negative. IMPRESSION: 1. Stable surgical changes and degenerative changes. No evidence of new hardware failure. Electronically authenticated by: LORETO MARTINS Date: 2022-03-29 07:16[facility]10-27-2022 NotePROCEDURE: XR FOOT RT 2V HISTORY: Pain COMPARISON: XR foot right 01/16/2022 FINDINGS: BONES:2 intraoperative spot fluoroscopic images demonstrate thin metallic plate extending along the dorsal margin from the anterior talus to the lateral cuneiform; secured with several screws. Remnants patient screw and staple leg within medial midfoot. Marked degenerative joint disease of the midfoot. SOFT TISSUES:No visible soft tissue swelling. EFFUSION:None visible. OTHER: Negative. IMPRESSION: 1. Intraoperative images demonstrate partial hardware removal/revision. Electronically authenticated by: LORETO MARTINS Date: 2022-02-07 18:49[facility]10-27-2022 NotePROCEDURE: XR FOOT RT MIN 3 VIEWS, XR ANKLE RT MIN 3 VIEWS HISTORY: Pain COMPARISON: XR foot right 01/16/2022, 02/07/2022 intraoperative images FINDINGS: BONES:Mechanical fusion of the talocalcaneal joint via posterior lag screw. Chemical fusion of the midfoot via a thin dorsal plate extending from anterior talus to the lateral cuneiform; no evidence of hardware fracture or loosening. Remnant screw and staple leg within medial midfoot. Marked degenerative joint disease of the midfoot. Marrow harvesting from the distal tibia. SOFT TISSUES:Dorsal soft tissue swelling and subcutaneous air. Skin sorin medial to the foot and ankle. EFFUSION:None visible. OTHER: Negative. IMPRESSION: 1. Stable surgical changes compared to intraoperative images. Electronically authenticated by: LORETO MARTINS Date: 2022-02-07 18:47[facility]10-27-2022 NotePROCEDURE: XR FOOT RT MIN 3 VIEWS, XR ANKLE RT MIN 3 VIEWS HISTORY: Pain COMPARISON: XR foot right 01/16/2022, 02/07/2022 intraoperative images FINDINGS: BONES:Mechanical fusion of the talocalcaneal joint via posterior lag screw. Chemical fusion of the midfoot via a thin dorsal plate extending from anterior talus to the lateral cuneiform; no evidence of hardware fracture or loosening. Remnant screw and staple leg within medial midfoot. Marked degenerative joint disease of the midfoot. Marrow harvesting from the distal tibia. SOFT TISSUES:Dorsal soft tissue swelling and subcutaneous air. Skin sorin medial to the foot and ankle. EFFUSION:None visible. OTHER: Negative. IMPRESSION: 1. Stable surgical changes compared to intraoperative images. Electronically authenticated by: LORETO MARTINS Date: 2022-02-07 18:47[facility]10-07-2022 NotePROCEDURE: XR FOOT RT MIN 3 VIEWS COMPARISON: 11/28/2021 HISTORY: Pain FINDINGS: BONES:Stable postsurgical changes with subtalar fusion utilizing a single screw. Dorsal hindfoot midfoot fusion with plates and screws. Anatomic alignment. Moderate to severe degenerative changes throughout the foot. Permeative pattern of the bones suggests osteopenia. Lucency in the distal tibia consistent with bone graft harvesting SOFT TISSUES:Negative. No visible soft tissue swelling. EFFUSION:None visible. OTHER: Negative. IMPRESSION: Stable postsurgical fusion with underlying degenerative changes Electronically authenticated by: ADARSH MCGEE Date: 2022-01-18 07:45[facility]08-18-2022 NotePROCEDURE: XR FOOT RT MIN 3 VIEWS HISTORY: Pain in right foot COMPARISON: XR foot right 09/19/2021 FINDINGS: BONES:Dorsal medial fusion of the midfoot without evidence of new hardware fracture or loosening. Metal fragments from prior revision are noted. Posterior talocalcaneal fusion via single lag screw. Moderate degenerative changes of the first metatarsophalangeal joint and multifocal mild degenerative changes of the interphalangeal joints. SOFT TISSUES:Mild dorsal soft tissue swelling. EFFUSION:None visible. OTHER: Negative. IMPRESSION: 1. Stable surgical changes without evidence of hardware failure or change in alignment. 2. Multifocal mild to moderate degenerative joint disease and mild osteopenia. Electronically authenticated by: LORETO MARTINS Date: 2021-11-29 06:43[facility]06-08-2022 NotePROCEDURE: XR FOOT RT MIN 3 VIEWS COMPARISON: 08/27/2021 HISTORY: Pain in right foot FINDINGS: BONES:Lucency in the distal tibia likely from bone graft harvesting. Posterior subtalar fusion with a single cannulated screw. Fusion of the midfoot hindfoot with dorsal plate and screws, stable. Moderate diffuse permeative pattern of the bones consistent with osteopenia. Moderate degenerative changes most significant at the first metatarsal-phalangeal joint. Mild enthesopathic spurring of the calcaneus SOFT TISSUES:Diffuse soft tissue swelling, slightly improved EFFUSION:Moderate tibiotalar joint effusion OTHER: Negative. IMPRESSION: Stable postsurgical changes and osteopenia Electronically authenticated by: ADARSH MCGEE Date: 2021-09-19 16:36[facility]05-18-2022 NotePROCEDURE: XR FOOT RT MIN 3 VIEWS HISTORY: Pain in right foot COMPARISON: XR foot right 08/15/2021 FINDINGS: BONES:Fusion via dorsal plates and screws. Remnant fractured screws from prior hardware are still present. Talocalcaneal fusion via single lag screw. Mild degenerative changes of the metatarsophalangeal and interphalangeal joints. SOFT TISSUES:Mild soft tissue swelling surrounding ankle and midfoot. EFFUSION:None visible. OTHER: Negative. IMPRESSION: 1. Surgical changes without evidence of hardware failure or change in alignment. Electronically authenticated by: LORETO MARTINS Date: 2021-08-29 10:37[facility]05-10-2022 Evaluation note* Encounter Date Diagnosis Assessment Notes Treatment Notes Treatment Clinical Notes August, Obstructive sleep apnea (ICD-10 - G47.33) He has been using and benefiting from inspire therapy. However he had not made any adjustments, returning with his initial setting of 2.9 V. He was reeducated about procedure for adjusting settings; he had not held the controller up against the device after making an adjustment to do the actual programming so they never went through. In laboratory we increased settings to 3.1 V which he did find tolerable, no difficulties with it. We reprogrammed to new settings of minimum 2.8 maximum 3.7. He will return in 4 weeks. Educated regarding progressive setting adjustment August, Encounter for adjustment and management of neurostimulator (ICD-10 - Z45.42) Device was adjusted as described above August, Hypoxia, sleep related (ICD-10 - G47.34) Patients with untreated apnea-associated nocturnal hypoxia have more heart attacks, strokes, and symptomatic pulmonary hypertension. This emphasizes importance of using treatment every night, all night. August, BMI 32.0-32.9,adult (ICD-10 - Z68.32) Weight reduction is broadly beneficial but has particular impact on sleep apnea [employer] Other 03-29-2022 Evaluation note* Encounter Date Diagnosis Assessment Notes Treatment Notes Treatment Clinical Notes Jun, Obstructive sleep apnea (ICD-10 - G47.33) He has documented moderate obstructive sleep apnea with hypoxia, and was unable to tolerate positive airway pressure treatment. He underwent Inspire Therapy implantation May [address] Whatley, and had no difficulty with tongue function in the perioperative period. Wound check was unremarkable and he has had no discomfort since the procedure. ... The device was interrogated and found to be functioning well. Impedances were as expected. Sensory threshold Was determined to be 2.0 V, and with further adjustment functional Threshold identified at 2.9Volts. The device was programmed to have range 2.7 - 3.7. Due to his moderate dentition with missing and fractured teeth, there is some concern that tongue protrusion may find abrasion so he is advised to call if this problem develops. Anticipate return otherwise in 4 to 6 weeks. Detailed instructions and education provided Jun, BMI 31.0-31.9,adult (ICD-10 - Z68.31) Weight control strategies emphasizing portion control, good food choices, low calorie snacking, avoiding calorie-containing liquids, and calorie tracking were reviewed in detail. Emphasis was placed budgeting calories so there can be room for appropriate quantities of favorite foods, and on making gradual progress rather than seeking short term loss. Jun, Encounter for adjustment and management of neurostimulator (ICD-10 - Z45.42) Device was adjusted as described above Jun, Hypoxia, sleep related (ICD-10 - G47.34) Patients with untreated apnea-associated nocturnal hypoxia have more heart attacks, strokes, and symptomatic pulmonary hypertension. This emphasizes importance of using treatment every night, all night. Jun, Other Over 1 hour spe nt [id number] the majority in Walk-in Appointment Scheduler Other 02-21-2022 NoteTransitional Care Management Contact Initial communication post- discharge: Patient was listed on this Tin Recovery Worker's IP_OBS discharge report. 1st attempt: 06/04/2021 Telephoned patient to review discharge instructions. Introduced myself to patient by name and title. Patient was identified by name and date of and agreed to Tin Recovery Worker's call. Informed patient this call was being made to follow up on recent hospitalization. Patient verbalized understanding. Sources of Information: [x]Patient, family member or director critical care: Name and Relationship to patient: Ritu Reyes, patient [x] Hospital Discharge Summary reviewed: [] Hospital fax received from: [x] List of recent hospitalizations or ED visits reviewed: []Other: Date of Admission: 05/31/21 Date of Discharge: 06/01/21 Hospital Discharge diagnosis: TED (obstructive sleep apnea) 05/31/21 Placement of Inspire System with Dr. Billingsley Current symptoms/Patient concerns: Patient stated I want you to make a note that I wasn't very happy with the nurses. They wouldn't give me any of the medicine I take at home. They said they didn't have orders. And, they never seemed to be around. Patient stated The incision looks pretty good. Any new or worsening symptoms since discharge? No Patient stated They stopped all of the medicines I take and I'm not doing that. I need my blood pressure medicine and my thyroid medicine. I'll talk to the doctor about that. I see Dr. Turcios in [place]. I don't take nay pain medicines. Medication changes: Yes If yes, what are they and does patient understand how and when to take? yes Did patient get medications from the pharmacy? yes Does patient have questions about these medications? no START taking these medications ??? AM Noon PM Bedtime ??? cephALEXin 500 MG capsule Commonly known as: KEFLEX Take 1 Capsule by mouth 4 times daily. ??? [ ?] [ ?] [ ?] [ ?] ? CHANGE how you take these medications ??? AM Noon PM Bedtime ??? * tramadol 50 MG tablet Commonly known as: ULTRAM 1-2 tablets What changed: Another medication with the same name was added. Make sure you understand how and when to take each. ??? [ ?] [ ?] [ ?] [ ?] ? * tramadol 50 MG tablet Commonly known as: ULTRAM Take 1 Tablet by mouth every 6 hours as needed for Pain for up to 5 days. What changed: You were already taking a medication with the same name, and this prescription was added. Make sure you understand how and when to take each. STOP taking these medications ??? acetaminophen 500 MG tablet Commonly known as: TYLENOL ? amLODIPine 5 MG tablet Commonly known as: NORVASC ? Eliquis 5 MG tablet Generic drug: Apixaban ? gabapentin 100 MG capsule Commonly known as: NEURONTIN ? hydrocodone-acetaminophen 5-325 mg per tablet Commonly known as: NORCO ? levothyroxine 100 MCG tablet Commonly known as: SYNTHROID Medication list reviewed with patient: Yes Needs follow up appointment or procedure: Yes TCM eligible: No Within 7 days of discharge (highly complex visit) Within 14 days of discharge (moderately complex visit) PCP is Dr. Turcios in [place]. Nandini Billingsley MD On 06/08/2021. ??? Specialty: Otolaryngology Why: Your appointment is at 2 PM Contact information: [address] [address] ??? Review need for or follow up on pending diagnostic test, referrals to specialist and treatment plans with patient/caregiver: Yes No PCP on file Future Appointments Date Time Department Provider Status 06/08/21 2:00 PM ENT FACULTY [phone] Nandini Billingsley MD Scheduled Patient was reminded of above appt. Patient verbalized understanding. Community resources identified for patient/family: No i.e. [employer], [employer], [employer], [employer] Durable medical equipment ordered:No Education provided to patient/caregiver to support self management, ADL's, etc: SELMA offered: Mode of Transportation: Has transportation Additional information needed and requested:Yes Patient was provided with information about ENT Resident industrial rehabilitation consultant ([phone]) Reinforced guildelines for worsening symptoms and when to call provider, go to the ED, or seek immediate medical attention. Patient verbalized understanding. Patient did not voice any additional questions, concerns, or needs at the time of this call. Plan of Care: Patient will f/u with his PCP regarding medications Patient will keep f/u appt(s) Patient will call provider or ENT Resident industrial rehabilitation consultant with questions or concerns Patient Goals: Interact with other health dog day care attendant involved in patient care:No Dental Care Screening: Have you been to the dentist within the year :NA If no, can I assist with making you an appointment: NA VAUGHN VeraN, RN, DCES Care Coordi (more content not included)...[facility] AssociationShanghai [employer] [id number] Note 06/01/21 1057 Assessment and Discharge Planning Evaluation READMISSION LESS THAN 30 DAYS No READMISSION RISK SCORE IS Low Risk INTERVIEWED Patient COGNITIVE STATUS Oriented to person, place, time and location LIVING SITUATION Alone (pt lives in ranch style home) PCP VERIFIED No ADMISSION INSURANCE Private Insurance (comment) ([facility] [employer]) HOME HEALTH CARE PRIOR TO ADMISSION No TENTATIVE DISCHARGE PLAN Home with responsible adult READMISSION RISK SCORE SHOULD BE Remain Unchanged REASON READMISSION SCORE NEEDS ADJUSTED no Discharge Plan and Interventions DISCHARGE PLAN Home with responsible adult Discharge Plan Discussed Patient Agreement of Discharge Plan Yes PATIENT GOALS RELATED TO DISCHARGE home HOW WILL PATIENT MEET THEIR GOALS adhernece to medical plan PATIENT TREATMENT PREFERENCES home DISCHARGE CARE INTERVENTIONS None Required Primary Social Problem/Concern Care Coordination Social Interventions Monitoring/ Follow-up/ Service Coordination Social Outcomes Patient/ Family received appropriate resources FINAL DISCHARGE PLANNING SUMMARY home SW civil engineering intern interviewed the pt at bedside the pt reported that he lives alone in his ranch style house. The pt reported that prior to admission he was driving but will be having a friend pick him up today. The pt reported that he had ankle surgery a while a ago and has to have the hardware changed in 3 months so he has been receiving SSD. The pt reported no financial concerns and has enough food in the home. The pt reported that he has some family that lives near by and his step children that he raised are willing to help if needed it. The pt will d/c this date with no needs. KRISTIN Greenwood, LEADED GLASS INSTALLER-internThe [facility]02-18-2022 NoteDISCHARGE SUMMARY [address] [address] Ritu Reyes Date of : 1965 56 year old male Attending Nandini Billingsley MD Date of Admission 05/31/2021 Date of Discharge 06/01/2021 [Principal Hospital Problem (Final Diagnosis)] TED (obstructive sleep apnea) Discharge Procedure Orders OPEN IMPLANT HYPOGLOSSAL NERVE NEUROSTIM ARRAY, PULSE GEN, AND DISTAL RESP SENSOR ELECTRODE/ARRAY ELECTRONIC ANALYSIS IMPLANTED COMPLEX CRANIAL NERVE NEUROSTIMULATOR PULSE GENERATOR PROGRAMMING Future Appointments Date Time Provider Department Center 06/08/2021 2:00 PM Nandini Billingsley MD [facility] Condition at Discharge Unchanged Activity Other (see comments) Diet Other (see comments) Disposition Home Functional Status Ambulatory Reason for Hospitalization TED Significant Findings Successful Placement of Inspire System Hospital Course Patient is a 56 year old male who underwent Inspire System Placement with Dr. Billingsley on 05/31/2021. The patient tolerated procedure well. They recovered briefly in the PACU before being transferred to a regular nursing floor. Diet was slowly advanced as tolerated and pain control was transitioned to PO. At time of discharge, pt is afebrile, AVSS, pain is well controlled. They are tolerating a diet, voiding without issue, and ambulating independently. All incisions are clean, dry and intact. There is no evidence of hematoma or seroma. Pt is discharged to home in stable condition with instructions to follow-up as an outpatient. DAY OF DISCHARGE PHYSICAL EXAM: O/ BP 138/89 (BP Location: right arm) Pulse 79 Temp 97.9 ???F (36.6 ???C) (Temporal) Resp 18 Ht 5' 8 (1.727 m) Wt 200 lb (90.7 kg) SpO2 95% BMI 30.41 kg/m??? Tmax (24 hours): 98.6 ???F (37 ???C) Pulse Av.9 Min: 52 Max: 115 Systolic (24hrs), Av , Min:91 , Max:160 Diastolic (24hrs), Av, Min:49, Max:93 MAP (mmHg) Av mmHg Min: 83 mmHg Max: 107 mmHg Resp Av Min: 0 Max: 21 SpO2 Av.1 % Min: 93 % Max: 100 % PHYSICAL EXAM: Gen: NAD, AOx3 HEENT: right neck incision is c/d/i, no fluid collection, tongue with full normal motion Chest: incision is c/d/i, no fluid collection Resp: Breathing comofrtably on room air I provided the patient and/or family/surrogate with the following information: Explanation of the primary diagnosis, and secondary diagnoses where applicable, including test results, Discussion of any new medications and treatments, including expected benefits and potential major side effects, Explanation of previous treatments or medications that are discontinued, Discussion of post-hospital day-to-day care needs and Follow-up plans, and warning signs that should prompt more urgent follow-upThe [employer]02-17-2022 NoteSurgical Attestation: I have reviewed the patient's History and Physical Examination. I have personally seen and evaluated the patient, repeating meng portions. There is no significant interval change. Surgery is still indicated. Yes Consent reviewed and signed by patient/family: Yes Operative site verified and marked: site verified but not marked as not anatomically possible Karli Mcdowell PA-C 05/31/2021 1:27 [facility] CenterDigital Payment Technologies [id number] NotePresurgical Evaluation Ritu Reyes, [id number] 56 year old Male 05/18/2021 Height: 5' 8 Weight: 90.7 kg BMI: (30.41) VITAL SIGNS: BP 138/89 Comment: repeat manual Pulse 86 Temp 97.3 ???F (36.3 ???C) (Temporal) Resp 16 Ht 5' 8 (1.727 m) Wt 200 lb (90.7 kg) SpO2 97% BMI 30.41 kg/m??? ALLERGIES: No Known Allergies HISTORY OF PRESENT ILLNESS: Ritu Reyes is a 56 year old male pt who is seen here today for pre-surgical evaluation for INSERTION, STIMULATOR, HYPOGLOSSAL NERVE. He has a h/o TED (obstructive sleep apnea). Currently denies fever and chills, new cough, SOB or CP. He is scheduled for surgery w/ Dr. Billingsley on 05/31/2021 RECENT ILLNESS: Serious illness or hospitalization within the last six months. No STOP-BANG Row Name Office Visit from 05/14/2021 in [facility] Pre-Surgical Evaluation History of sleep apnea? Yes Home Sleep study: 07/11/20 -OSH-does not wear cpap RESPIRATORY PARAMETERS: During the study, patient had 158 apneas, 157 obstructive and 1 central, in addition to 21 hypopneas, with an overall apnea-hypopnea index of 26.2 per hour. Lowest oxygen saturation was 85% with an average oxygen saturation of 92.6% for the whole night. The patient spent nearly 50% of the recording time in the supine position. OVERALL IMPRESSION: This study is consistent with moderate obstructive sleep apnea associated with moderate hypoxia. EXERCISE CAPACITY: <4 mets: limited d/t recent ankle surgery right side SOCIAL HISTORY: Social History Tobacco Use * Smoking status: Never Smoker * Smokeless tobacco: Never Used Substance Use Topics * Alcohol use: Not Currently * Drug use: Not Currently reports previous drug use. MEDICAL HISTORY: Past Medical History: Diagnosis Date * Acquired hypothyroidism 12/18/2016 * History of blood clots * Hypertension * TED (obstructive sleep apnea) 09/13/2020 SURGICAL HISTORY: Past Surgical History: Procedure Laterality Date * ANKLE SURGERY Right no hardware; x2 * BRAIN TUMOR EXCISION r/t acoustic neuroma per pt * BRONCHOSCOPY, FLEXIBLE, DRUG INDUCED SLEEP ENDOSCOPY (DISE) N/A 10/26/2020 Procedure: BRONCHOSCOPY, FLEXIBLE, DRUG INDUCED SLEEP ENDOSCOPY (DISE); Surgeon: Nandini Billingsley MD; Location: [facility] Surgery [place]; Service: Otolaryngology * CHOLECYSTECTOMY * NECK SURGERY x2 with hardware PROBLEM LIST: Patient Active Problem List: Acquired hypothyroidism [E03.9] Fatigue [R53.83] TED (obstructive sleep apnea) [G47.33] FAMILY HISTORY: No family history on file. 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 Constitutional: Negative Skin: Intact PREVIOUS ANESTHETIC COMPLICATIONS: Anesthesia Complications None FAMILY HISTORY OF ANESTHETIC COMPLICATIONS: No PHYSICAL EXAM: Eyes: EOM's intact and Wears glasses ENT: Mucosa normal, Neck supple, Carotids normal pulse without bruits and Thyroid normal Pulmonary: Chest clear to auscultation bilaterally Cardiovascular: RRR with S1S2 and No murmurs, gallops, or rubs Abdomen: Bowel sounds normal Extremities: Edema-right ankle Neurologic: Awake, alert, oriented, No motor deficits and Sensation grossly intact Psychiatric: alert and oriented to person, place and time, Appropriate mood/affect Skin: No gross or obvious abnormalities on visible skin AIRWAY EXAM: Mallampati score: 2 TMD: Adequate Neck Extension/ Flexion: Adequate Mouth Opening: Adequate Dentition: Missing teeth Micrognathia/Overbite: No PAIN ASSESSMENT: Severity: 5 Location: right ankle pain LABORATORY DATA: Type AND Screen None CBC (last 3 years, up to 5 values) WBC RBC Hgb Hct MCV RDW Plt 05/14/21 1346 4.9 4.43 13.6 40.5 92 13.1 228 PROF CHEM 8 (BAS METB) on 01-12-2021-OSH Anion gap [Moles/Vol] 9.1 mmol/L Normal ??? [facility] Calcium [Mass/Vol] 8.9 mg/dL Normal 8.4-10.2 [facility] Chloride [Moles/Vol] 105 mmol/L Normal 98-107 [facility] CO2 [Moles/Vol] 30.1 mmol/L Critically high 22.0-30.0 [facility] Creatinine [Mass/Vol] 0.80 mg/dL Normal 0.66-1.25 [facility] EGFR-AF CANADIAN >60 Normal >=60 [facility] EGFR-NON AF CANADIAN >60 Normal >=60 [facility] Glucose [Mass/Vol] 89 mg/dL Basic Metabolic Panel None Basic Metabolic Panel None PT/PTT/INR (last 3 years, up to 5 values) None Arterial Blood Gases None No result for BNP LFT's (last 3 years, up to 5 values) None TESTS REVIEWED: CXRay: 03 (more content not included)...[facility] HospitalDigital Payment Technologies [id number] NoteDr. Nandini, Patient calling because he stated he was told that his procedure with you in the OR was going to be scheduled for 03/15/2021. I did not see a surgery date on this patient's surgery order so I told patient that I would send a message for him. Patient stated that he is ready to go for this procedure anytime after 03/07/2021. PT: [phone] Thanks, DThe [facility] HospitalDigital Payment Technologies [id number] NoteSurgical Attestation: I have reviewed the patient's History and Physical Examination. I have personally seen and evaluated the patient, repeating meng portions. There is no significant interval change. Surgery is still indicated. Yes Consent reviewed and signed by patient/family: Yes Operative site verified and marked: site verified but not marked as not anatomically possible Karli Mcdowell PA-C 10/26/2020 7:10 AMThe [facility] Hospital AssociationShanghai Nouriz Dairy SystemEvaluation + Plan note Future Appointments Appointment Date:02/04/2023 08:00:00 AM Scheduled Provider: Location:.[facility] Appointment Type:US Abdominal/Pelvis (FT) Appointment Date:03/19/2023 10:00:00 AM Scheduled Provider: Location:[facility] Appointment Type:Surgery FT Future Scheduled Tests Laboratory* Calprotectin, Fecal 01/08/23 * O & P Exam, Routine 01/08/23 * Celiac Disease Comprehensive 01/08/23 * Clostridium Difficile PCR 01/08/23 * Enteric Panel by PCR 01/08/23 * CBC w/ Auto Diff 01/08/23 * Comprehensive Metabolic Panel 01/08/23 * C-Reactive Protein 01/08/23 * Hepatic Function Panel 02/03/23 Radiology* US Liver 02/04/23 [facility] Evaluation + Plan note Future Appointments Appointment Date:03/19/2023 10:00:00 AM Scheduled Provider: Location:[facility] Appointment Type:Surgery FT Future Scheduled Tests Laboratory* Calprotectin, Fecal 01/08/23 * O & P Exam, Routine 01/08/23 * Celiac Disease Comprehensive 01/08/23 * Clostridium Difficile PCR 01/08/23 * Enteric Panel by PCR 01/08/23 * CBC w/ Auto Diff 01/08/23 * Comprehensive Metabolic Panel 01/08/23 * C-Reactive Protein 01/08/23 * Hepatic Function Panel 02/03/23 [facility] Diagnosis Osteoarthritis of right ankle and foot- Primary documented in this encounter [facility]* Diagnosis Sessile colonic polyp- Primary Benign neoplasm of colon Anemia, unspecified type documented in this encounter [facility] general Narrative - Reported* Type Description Date Medical History hypothyroidsim Medical History Multiple DVT's lower extremities Medical History sleep apnea Surgical History discectomy X2 cervical 2007 Surgical History Procedure:discectomy - Cervical x 2;Disease:Disc displacement 2007 Surgical History cholecystectomy 2009 Surgical History Procedure:Cholecystectomy 2009 Surgical History Laser Lumbar Surgery 2015 Surgical History laser lumbar surgery--[facility] 2015 Surgical History brain tumor removed 2013 Surgical History neck fusion dec 29, 2017 Surgical History Neck fusion C6/7 Dec 29 2017 Surgical History Ankle Surgery 04/10/2020 Hospitalization History see above [employer] Other History general Narrative - Reported* Type Description Date Medical History hypothyroidsim Medical History Multiple DVT's lower extremities Medical History sleep apnea Surgical History discectomy X2 cervical 2007 Surgical History Procedure:discectomy - Cervical x 2;Disease:Disc displacement 2007 Surgical History cholecystectomy 2009 Surgical History Procedure:Cholecystectomy 2009 Surgical History Laser Lumbar Surgery 2015 Surgical History laser lumbar surgery--Laser [facility] 2015 Surgical History brain tumor removed 2013 Surgical History neck fusion dec 29, 2017 Surgical History Neck fusion C6/7 Dec 29 2017 Surgical History Ankle Surgery 04/10/2020 Surgical History Inspire implantation 05/2021 Hospitalization History see above [employer] Other Hospital course Narrative No data available for this section [facility] Discharge instructions No data available for this section [facility] No data available for this section [facility] HospitalReason for referral (narrative)* Diagnostic Procedure Only (Routine) - Pending Review Specialty Diagnoses / Procedures Referred By Klever t Referred To Contact DIGESTIVE DISEASE MCDONALD Diagnoses Sessile colonic polyp Procedures COLONOSCOPY (THERAPEUTIC) UNLISTED PROCEDURE COLON Shashi Arenas MD [address] [place] [address] [facility] [address] [place] [address] Referral ID Status Reason Start Date Expiration Date Visits Requested Visits Authorized [id number] Pending Review Auto-Generat ed Referral 3 03/12/2024 1 1 [facility] Summary Purpose Family History No Family History Records Found Relationship Condition Age at Onset Recorded Date/T bennett father Alive and well Unknown Not Specified Alive and well Unknown Advance Directives No Advanced Directives Records Found Advance Directive Response Recorded Date/ Time Advance Directives No March 14, 2017 11:49am Advance Directive Response Recorded Date/ Time Advance Directives No March 14, 2017 12:49pm Latest Code Status on File Code Status Date Activated Date Inactivated Comments Full Code 05/31/2021 5:15 PM 06/01/2021 4:21 PM Documentation of decision pr ocess for this code status: Discussed with patient or surrogate. Thi s is the code status chosen by the patient/surrogate. Latest Code Status on File Code Status Date Activated Date Inactivated Comments Full Code 05/31/2021 5:15 PM 06/01/2021 4:21 PM Question Answer Comments Documentation of decision process for this code status: Discussed with patient or surrogate. This is the code status chosen by the patient/surrogate. Chief Complaint and Reason for Visit Chief Complaint r91.8 Chief Complaint r91.8 z86.018 Chief Complaint r91.8 z86.018 i27.20 g47.33 r06.02 Chief Complaint r91.8 z86.018 M25.571 i27.20 g47.33 r06.02 i27.20 g47.33 r06.02 Assessments No Assessments Information AvailableNo Assessments Information AvailableNo Assessments Information AvailableNo Assessments Information Available Additional Source Comments (unrecognized sect ion and content) No Status Records FoundNo Status Records FoundNo Status Records FoundNo Status Records FoundNo Status Records FoundNo Status Records FoundNo Status Records FoundNo Status Records FoundNo Status Records FoundNo Status Records FoundNo Status Records FoundNo Status Records FoundNo Status Records Found INFORMATION SOURCE (unrecogn ized section and content) DATE CREATED AUTHOR [facility]2017 [facility] [place] DATE CREATED AUTHOR AUTHOR'S ORGANIZ ATION 01/20/2018 [facility] DATE CREATED AUTHOR AUTHOR'S ORGANIZ ATION 03/10/2018 [facility] DATE CREATED AUTHOR AUTHOR'S ORGANIZ ATION 03/13/2018 [facility] DATE CREATED AUTHOR AUTHOR'S ORGANIZ ATION 07/24/2018 [facility] DATE CREATED AUTHOR AUTHOR'S ORGANIZ ATION 02/22/2019 [employer] DATE CREATED AUTHOR AUTHOR'S ORGANIZ ATION 07/05/2021 [facility] DATE CREATED AUTHOR AUTHOR'S ORGANIZ ATION 07/14/2021 [facility] DATE CREATED AUTHOR AUTHOR'S ORGANIZ ATION 12/13/2021 [facility] dical Specialist DATE CREATED AUTHOR AUTHOR'S ORGANIZ ATION 08/26/2022 [facility] DATE CREATED AUTHOR AUTHOR'S ORGANIZ ATION 02/07/2023 [facility] DATE CREATED AUTHOR AUTHOR'S ORGANIZ ATION 03/14/2023 [facility] DATE CREATED AUTHOR AUTHOR'S ORGANIZ ATION 03/14/2023 [facility] Care Teams (unrecognized sec tion and content) Automotive Upholsterer Relationship Specialty Start Date End Date Brigida Obregon, TIMBER MANAGEMENT PROFESSOR-SAP DATA ARCHITECT [address] [place] [address] SOFTWARE ENGINEER BACKEND Otolaryngology 09/15/20 Nandini Billingsley MD [address] [place] [address] Physician Otolaryngology 11/17/20 Monika José, TIMBER MANAGEMENT PROFESSOR-SAP DATA ARCHITECT [address] [place] [address] SOFTWARE ENGINEER BACKEND Anesthesiology 05/19/21 Automotive Upholsterer Relationship Specialty Start Date End Date Seth Turcios MD [address] [place] [address] Referring Internal Medicine 05/21/22 Automotive Upholsterer Relationship Specialty Start Date End Date Brigida Obregon, TIMBER MANAGEMENT PROFESSOR-SAP DATA ARCHITECT [address] [place] [address] SOFTWARE ENGINEER BACKEND Otolaryngology 09/15/20 Nandini Billingsley MD [address] [place] [address] Physician Otolaryngology 11/17/20 Monika José, TIMBER MANAGEMENT PROFESSOR-SAP DATA ARCHITECT [address] [place] [address] SOFTWARE ENGINEER BACKEND Anesthesiology 05/19/21 Automotive Upholsterer Relationship Specialty Start Date End Date Seth Turcios MD [address] [place] [address] Referring Internal Medicine 05/21/22 Automotive Upholsterer Relationship Specialty Start Date End Date Seth Turcios MD [address] [place] [address] Referring Internal Medicine 05/21/22 Source Comments (unrecognize d section and content) In the event this informatio n is protected by the Federal Confidentiality of Alcohol and Drug Abuse Patient Records regulations: The Federal rules restrict any use of the information to criminally investigate or prosecute any alcohol or drug abuse patient.[facility] Center[facility] the event this information is protected by the Federal Confidentiality of Alcohol and Drug Abuse Patient Records regulations: The Federal rules restrict any use of the information to criminally investigate or prosecute any alcohol or drug abuse patient.[facility] Center[facility] the event this information is protected by the Federal Confidentiality of Alcohol and Drug Abuse Patient Records regulations: The Federal rules restrict any use of the information to criminally investigate or prosecute any alcohol or drug abuse patient.[facility] Center[facility] the event this information is protected by the Federal Confidentiality of Alcohol and Drug Abuse Patient Records regulations: The Federal rules restrict any use of the information to criminally investigate or prosecute any alcohol or drug abuse patient.[facility] Reason for Visit (unrecogniz ed section and content) Reason Comments New Patient Colon Polyp Specialty Diagnoses / Procedures Referred By Contac t Referred To Contact GASTROENTEROLOGY Diagnoses cons for EMR Procedures REFERRAL TO [facility] FINANCIAL COUNSELOR OFFICE/OUTPATIENT NEW MODERATE MDM 45-59 MINUTES Seth Turcios MD [address] [place] [address] [facility] [address] [address] Referral ID Status Reason Start Date Expiration Date Visits Requested Visits Authorized [id number] Closed Financial Clearance Required - OON Payor OON Notification Letter Patient Cleared - Admin/Assistant Associate Professor/D irector advise to proceed or did not respond 3 06/08/2023 1 1 Reason Comments Appointment Reason Comments New Swelling Pain Numbness FOR RECORDS PERTAINING TO PATIENTS WHO ARE OR HAVE BEEN ENROLLED IN A CHEMICAL DEPENDENCY/SUBSTANCEABUSE PROGRAM, SOME INFORMATION MAY BE OMITTED. This clinical summary was aggregated from multiple sources. Caution should be exercised in using it in the provision of clinical care. This summary normalizes information from multiple sources, and as a consequence, information in this document may materially change the coding, format and clinical context of patient data. In addition, data may be omitted in some cases. CLINICAL DECISIONS SHOULD BE BASED ON THE PRIMARY CLINICAL RECORDS. [employer] provides no warranty or guarantee of the accuracy or completeness of information in this document.
--- NOTE | 2023-04-03 16:44 | ED.GENADUL1 ---
HPI - General Adult General Chief complaint: Extremity Injury, Lower Stated complaint: FOOT PAIN-NEEDS ULTRASOUND Time Seen by Provider: 04/03/23 16:09 Source: patient Mode of arrival: walk-in Limitations: no limitations History of Present Illness HPI narrative: 58-year-old male presents because he wants to get a CAT scan of his foot done. He's had chronic ongoing issues with his foot and has had this for years and has, he states, seven surgeries on his foot. He saw his commercial carpenter yesterday and the patient wanted to come here so he get the CAT scan done quickly. There is no trauma. He has pain on the dorsum. Related Data Home Medications Medication Instructions Recorded Confirmed amlodipine 10 mg tablet 10 mg PO DAILY 02/10/23 04/03/23 levothyroxine 112 mcg capsule 112 mcg PO DAILY 02/10/23 04/03/23 lisinopril 20 mg tablet 20 mg PO DAILY 02/10/23 04/03/23 omeprazole 40 mg capsule,delayed 40 mg PO DAILY 02/10/23 04/03/23 release pregabalin 50 mg capsule (Lyrica) 100 mg PO TID 02/10/23 04/03/23 Allergies Allergy/AdvReac Type Severity Reaction Status Date / Time No Known Drug Allergies Allergy Verified 04/03/23 16:06 Review of Systems ROS Narrative A ten point review of systems is negative except as noted above. PFSH PFSH Medical History History of acoustic neuroma ?Z86.018 - Personal history of other benign neoplasm (ICD-10) Low back pain ?M54.50 - Low back pain, unspecified (ICD-10) Osteoarthritis ?M19.90 - Unspecified osteoarthritis, unspecified site (ICD-10) Hypertension ?I10 - Essential (primary) hypertension (ICD-10) Surgical History H/O neck surgery ?Z98.890 - Other specified postprocedural states (ICD-10) History of ankle surgery ?Z98.890 - Other specified postprocedural states (ICD-10) Exam Narrative Exam Narrative: Nurses note and vital signs reviewed and patient is not hypoxic. General: The patient appears well and in no apparent distress. Patient is resting comfortably on cart. Skin: Warm, dry, no pallor noted. There is no rash noted. Head: Normocephalic, atraumatic Eye: Normal conjunctiva, no drainage Ears, Nose, Mouth, and Throat: oral mucosa is moist. Nares patent. Cardiovascular: Regular Rate and Rhythm Respiratory: Patient is in no distress, no accessory muscle use, lungs are clear to auscultation, no wheezing, rales or rhonchi Back: non-tender GI: nontender Musculoskeletal: with foot is examined. There is minimal erythema on the dorsum as well as old healed surgical scar. Neurological: A&O, normal speech Psychiatric: Cooperative Constitutional Vital Signs, click to edit/add: Last Vital Signs Temp 97.8 F 04/03/23 16:07 Pulse 96 H 04/03/23 16:07 Resp 18 04/03/23 16:07 BP 119/80 04/03/23 16:07 Pulse Ox 100 04/03/23 16:07 O2 Del Method Room Air 04/03/23 16:07 Course Vital Signs Vital signs: Vital Signs Temperature 97.8 F 04/03/23 16:07 Pulse Rate 96 H 04/03/23 16:07 Respiratory Rate 18 04/03/23 16:07 Blood Pressure 119/80 04/03/23 16:07 Pulse Oximetry 100 04/03/23 16:07 Oxygen Delivery Method Room Air 04/03/23 16:07 Temperature 97.8 F 04/03/23 16:07 Pulse Rate 96 H 04/03/23 16:07 Respiratory Rate 18 04/03/23 16:07 Blood Pressure 119/80 04/03/23 16:07 Pulse Oximetry 100 04/03/23 16:07 Oxygen Delivery Method Room Air 04/03/23 16:07 Medical Decision Making MDM Narrative Medical decision making narrative: I discussed the case with his commercial carpenter, Dr. Cantu. The patient will be discharged home and will have this CAT scan done on a nonemergent basis as an outpatient. This was discussed thoroughly with the patient. He was not sent here by his physician to have a CAT scan performed. Differential Diagnosis Differential Diagnosis: chronic pain, arthritis Discharge Plan Discharge Chief Complaint: Extremity Injury, Lower Clinical Impression: Chronic foot pain Patient Disposition: Home, Self-Care Time of Disposition Decision: 16:43 Condition: Good Mode of Transportation: Private Vehicle Prescriptions / Home Meds: No Action lisinopril 20 mg tablet 20 mg PO DAILY amlodipine 10 mg tablet 10 mg PO DAILY omeprazole 40 mg capsule,delayed release(DR/EC) 40 mg PO DAILY levothyroxine 112 mcg capsule 112 mcg PO DAILY pregabalin [Lyrica] 50 mg capsule 100 mg PO TID Instructions: Chronic Pain (ED) Additional Instructions: Follow-up with Dr. Cantu Stand Alone Forms: Portal Instructions Referrals: Physician,Non-Staff, MD [Primary Care Provider] - 1 week
== END 2023-04-03 16:48 | disposition home or self-care (01) ==
PROVIDERS: Emergency Provider Emergency Medicine
DX: M79.671 Pain in right foot (principal); G89.29 Other chronic pain; Z79.899 Other long term (current) drug therapy; Z79.890 Hormone replacement therapy; Z86.018 Personal history of other benign neoplasm; I10 Essential (primary) hypertension; M19.90 Unspecified osteoarthritis, unspecified site; Z98.890 Other specified postprocedural states
CPT/HCPCS: 99281